=== PATIENT | female | born 1990 | race Caucasian/White ===

== ENCOUNTER → 2016-08-23 | Outpatient (CLI) | payer BC, OTHER ==
[~2016-08-23] MED LIST: ZOLO100T OR
--- NOTE | 2016-08-26 08:27 | REP ---
MRI LUMBAR SPINE WITHOUT CONTRAST: HISTORY: Back pain. COMPARISON: 12/03/2013. Decreased signal intensity on T2-weighted images is present in the L4-5 and L5-S1 intervertebral discs. The discs are decreased in height. These findings are consistent with disc degeneration. There is no disc bulge or herniation at the L1-2 and L2-3 levels. The nerves exit the neural foramina without compression. A diffuse disc bulge is present at the L3-4 level. There is minimal compression of the thecal sac. The L3 nerves exit the neural foramina without compression. A diffuse disc bulge and small central disc protrusion are present at the L4-5 level. There is minimal compression of the thecal sac. The L4 nerves exit the neural foramina without compression. A diffuse disc bulge is present at the L5-S1 level. The disc bulge is decreased in size. There is minimal compression at the thecal sac. The L5 nerves exit the neural foramina without compression. The conus medullaris is normal in appearance terminating at the level of the L1 vertebral body. Normal signal intensity is present in the lumbar vertebral bodies. IMPRESSION: 1. Diffuse disc bulge at the L3-4 level with minimal thecal sac compression. 2. Diffuse disc bulge and small central disc protrusion at the L4-5 level with minimal thecal sac compression. 3. Diffuse disc bulge at the L5-S1 level with minimal thecal sac compression. The disc bulge is decreased in size. Signed by Melo Adrian MD 08/26/2016 08:30 A
== END ==
LOC: M RAD 12:52
PROVIDERS: ATTEND Physician Assistant
DX: M51.36 Other intervertebral disc degeneration, lumbar region (principal); M51.26 Other intervertebral disc displacement, lumbar region

== ENCOUNTER 2017-01-30 12:11 | Emergency (ER) | payer BC, OTHER ==
[~2017-01-30] VITALS: Ht 162.6 cm; Wt 70.8 kg
[2017-01-30] MEDS ORDERED: METHOCARBAMOL 500 MG TAB PO ONE (13:30)
[2017-01-30] MEDS ORDERED: PERCOCET 5MG/325MG TAB PO ONE (13:30)
[2017-01-30] MEDS ORDERED: IBUP-1022 PO (13:53)
[2017-01-30] MEDS ORDERED: ROBA500T PO (13:53)
--- NOTE | 2017-01-30 13:54 | REP ---
Pain after trauma. COMPARISON: 08/10/2016, which was normal. CT BRAIN WITHOUT CONTRAST: TECHNIQUE: 4.5 mm contiguous transaxial sections were obtained from the skull base to the cerebral convexities with thin cuts through the posterior fossa without the administration of intravenous contrast. FINDINGS: The ventricles and sulci are consistent with the patient's age. There are no extra-axial fluid collections. There is no mass effect. The deep cerebral white matter is consistent with the patient's age. The orbital and petrous structures , cerebellopontine angles, and posterior fossa are unremarkable. The sella turcica, cavernous, and paracavernous structures are essentially unremarkable. The visualized portions of the paranasal sinuses and mastoid air cells are clear. Images of the skull base show no gross abnormality. IMPRESSION: Essentially unremarkable CT examination of the brain. There has been no significant from the prior exam. Signed by Mian Barnes DO 01/30/2017 02:18 P
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
[2017-01-30 13:59] VITALS: BP 116/69
== END 2017-01-30 14:00 | disposition home or self-care (01) ==
LOC: M ED 13:48
DX: S13.4XXA Sprain of ligaments of cervical spine, initial encounter (principal); S06.0X0A Concussion without loss of consciousness, initial encounter; W01.0XXA Fall on same level from slipping, tripping and stumbling without subsequent striking against object, initial encounter; Y92.830 Public park as the place of occurrence of the external cause; Y93.64 Activity, baseball; Y99.8 Other external cause status; F17.210 Nicotine dependence, cigarettes, uncomplicated; Z88.0 Allergy status to penicillin

== ENCOUNTER 2017-06-30 14:09 | Emergency (ER) | payer OTHER, BC ==
[~2017-06-30] VITALS: Ht 162.6 cm; Wt 72.7 kg
[~2017-06-30 14:09] MED LIST changes: +IBUP-1022 PO; +ROBA500T PO
[2017-06-30] MEDS ORDERED: DOXY100T (14:14)
[2017-06-30] MEDS ORDERED: NAPR500T PO (17:10)
[2017-06-30] MEDS ORDERED: ROBA500T PO (17:10)
[2017-06-30] MEDS ORDERED: METHOCARBAMOL 500 MG TAB PO ONE (17:15)
[2017-06-30] MEDS ORDERED: NAPROXEN 250 MG TAB PO ONE (17:15)
[2017-06-30 17:24] VITALS: BP 118/67
== END 2017-06-30 17:38 | disposition home or self-care (01) ==
LOC: M ED 14:09
DX: M54.41 Lumbago with sciatica, right side (principal); Z72.0 Tobacco use

== ENCOUNTER 2017-07-02 22:46 | Emergency (ER) | payer OTHER, BC ==
[~2017-07-02] VITALS: Ht 162.6 cm; Wt 72.7 kg
[2017-07-02 22:46] VITALS: BP 133/80
[~2017-07-02 22:46] MED LIST changes: +DOXY100T; +NAPR500T PO
== END 2017-07-03 01:16 | disposition left against medical advice (07) ==
LOC: M ED 22:46
DX: Z53.21 Procedure and treatment not carried out due to patient leaving prior to being seen by health care provider (principal)

== ENCOUNTER → 2017-12-06 | Outpatient (REF) | payer BC | LOC: M LAB REF 14:51 | DX: J02.9 Acute pharyngitis, unspecified (principal) ==

== ENCOUNTER 2017-12-18 14:21 | Emergency (ER) | payer BC ==
[2017-12-18] MEDS: NS 1,000 ML IV (15:45)
[2017-12-18] MEDS ORDERED: NS 1,000 ML IV (16:00)
[2017-12-18 16:19] LABS: BASO % 0.5 % (0.0-1.0); EOS # 0.3 10^3/uL (0.0-0.50); EOS % 3.1 % (0.0-3.0); HEMATOCRIT 37.7 % (36.0-47.0); HEMOGLOBIN 12.7 g/dl (12.0-15.5); IMMATURE GRANULOCYTE % 0.2 % (0-3.0); LYMPH # 2.6 10^3/uL (1.5-6.5); LYMPH % 29.7 % (24.0-44.0); MEAN CORPUSCULAR HEMOGLOBIN 28.5 pg (27.0-33.0); MEAN CORPUSCULAR HGB CONC 33.7 g/dl (32.0-36.5); MEAN CORPUSCULAR VOLUME 84.5 fl (80.0-96.0); MONO # 0.9 10^3/uL (0.0-0.8); MONO % 9.9 % (0.0-5.0); NEUTROPHILS # 4.9 10^3/uL (1.8-7.7); NEUTROPHILS % 56.6 % (36.0-66.0); PLATELET COUNT, AUTOMATED 314 10^3/uL (150-450); RED BLOOD COUNT 4.46 10^6/uL (4.00-5.40); RED CELL DISTRIBUTION WIDTH 14.9 % (11.5-14.5); WHITE BLOOD COUNT 8.7 10^3/uL (4.0-10.0)
[2017-12-18 16:35] LABS: LACTIC ACID SEPSIS PROTOCOL 0.6 MMOL/L (0.4-2.0)
[2017-12-18 16:37] LABS: ALBUMIN 3.7 GM/DL (3.2-5.2); ALKALINE PHOSPHATASE 55 U/L (45-117); ALT/SGPT 22 U/L (12-78); ANION GAP 4 MEQ/L (8-16); AST/SGOT 16 U/L (7-37); BILIRUBIN,DIRECT 0.1 MG/DL (0.0-0.2); BILIRUBIN,TOTAL 0.5 MG/DL (0.2-1.0); BLOOD UREA NITROGEN 14 MG/DL (7-18); C REACTIVE PROTEIN QUANTITATIV < 0.30 MG/DL (0.00-0.30); CALCIUM LEVEL 8.7 MG/DL (8.5-10.1); CARBON DIOXIDE LEVEL 27 MEQ/L (21-32); CHLORIDE LEVEL 110 MEQ/L (98-107); CPK CREATINE PHOSPHOKINASE 272 U/L (26-192); CREATININE FOR GFR 0.84 MG/DL (0.55-1.30); GLOMERULAR FILTRATION RATE > 60.0 (>60); GLUCOSE, FASTING 87 MG/DL (70-100); LIPASE 180 U/L (73-393); MAGNESIUM LEVEL 2.5 MG/DL (1.8-2.4); PHOSPHORUS LEVEL 3.5 MG/DL (2.5-4.9); POTASSIUM SERUM 3.7 MEQ/L (3.5-5.1); SODIUM LEVEL 141 MEQ/L (136-145); TOTAL PROTEIN 7.8 GM/DL (6.4-8.2); TROPONIN I < 0.02 NG/ML (< 0.10)
[2017-12-18 16:40] LABS: ERYTHROCYTE SEDIMENTATION RATE 15 mm/hr (0-20)
[2017-12-18 16:41] LABS: D-DIMER QUANT 360.2 ng/ml (<500)
[2017-12-18 16:43] LABS: CK-MB VALUE MASS 1.3 NG/ML (<3.6); MB/CK RELATIVE INDEX 0.47 (< OR =4)
[2017-12-18] MEDS: KETOROLAC 30 MG/ML VIAL (J1885) IV (17:38)
[2017-12-18 18:49] LABS: PTH INTACT 56.1 PG/ML (18.5-88.0)
== END 2017-12-18 18:15 | disposition home or self-care (01) ==
LOC: M ED 14:21
DX: M79.1 Myalgia (principal); M25.50 Pain in unspecified joint; I49.9 Cardiac arrhythmia, unspecified; E83.39 Other disorders of phosphorus metabolism; Z88.0 Allergy status to penicillin
CPT/HCPCS: J1885

== ENCOUNTER 2018-01-25 21:23 | Observation (INO) | payer BC ==
[2018-01-25 22:18] LABS: BASO # 0.1 10^3/uL (0.0-0.2); BASO % 0.5 % (0.0-1.0); EOS # 0.3 10^3/uL (0.0-0.50); EOS % 1.9 % (0.0-3.0); HEMATOCRIT 40.2 % (36.0-47.0); HEMOGLOBIN 13.8 g/dl (12.0-15.5); IMMATURE GRANULOCYTE % 0.2 % (0-3.0); LYMPH # 3.4 10^3/uL (1.5-6.5); LYMPH % 25.8 % (24.0-44.0); MEAN CORPUSCULAR HEMOGLOBIN 28.3 pg (27.0-33.0); MEAN CORPUSCULAR HGB CONC 34.3 g/dl (32.0-36.5); MEAN CORPUSCULAR VOLUME 82.4 fl (80.0-96.0); MONO # 0.6 10^3/uL (0.0-0.8); MONO % 4.4 % (0.0-5.0); NEUTROPHILS # 8.9 10^3/uL (1.8-7.7); NEUTROPHILS % 67.2 % (36.0-66.0); PLATELET COUNT, AUTOMATED 336 10^3/uL (150-450); RED BLOOD COUNT 4.88 10^6/uL (4.00-5.40); RED CELL DISTRIBUTION WIDTH 13.9 % (11.5-14.5); WHITE BLOOD COUNT 13.2 10^3/uL (4.0-10.0)
[2018-01-25 22:22] LABS: INR 0.97
[2018-01-25 22:23] LABS: PARTIAL THROMBOPLASTIN TIME 26.3 SECONDS (26.8-37.9)
[2018-01-25 22:24] LABS: ANION GAP 11 MEQ/L (8-16); BLOOD UREA NITROGEN 9 MG/DL (7-18); CALCIUM LEVEL 9.2 MG/DL (8.5-10.1); CARBON DIOXIDE LEVEL 22 MEQ/L (21-32); CHLORIDE LEVEL 110 MEQ/L (98-107); CREATININE FOR GFR 0.72 MG/DL (0.55-1.30); GLOMERULAR FILTRATION RATE > 60.0 (>60); GLUCOSE, FASTING 92 MG/DL (70-100); POTASSIUM SERUM 4.1 MEQ/L (3.5-5.1); SODIUM LEVEL 143 MEQ/L (136-145)
[2018-01-25] MEDS ORDERED: ISOVUE-370 76% 100ML VIAL (Q9967) As Ordered (22:31)
[2018-01-26] MEDS ORDERED: ACETAMINOPHEN TAB 650MG DOSE (2X325MG) PO
[2018-01-26] MEDS ORDERED: LORazepam 2 MG TAB PO (00:15)
[2018-01-26] MEDS: ASPIRIN 81 MG ENTERIC TAB PO ×2 (00:29→08:33)
[2018-01-26 00:40] LABS: ETHYL ALCOHOL (ETHANOL) 0.182 % (0.000-0.010); FREE THYROXINE INDEX 2.7 % (1.3-4.8); HCG, SERUM QUANTITATIVE < 1.0 MIU/ML; T UPTAKE 35 % (30-39); THYROID STIMULATING HORMONE 0.925 uIU/ML (0.358-3.740); THYROXINE (T4) 7.6 UG/DL (4.5-12.0)
[2018-01-26] MEDS: THIAMINE 100 MG TAB PO ×3 (02:05→20:37)
[2018-01-26] MEDS: FOLIC ACID 1 MG TAB PO (08:33)
[2018-01-26] MEDS: NS 1,000 ML IV ×2 (08:33→11:13)
[2018-01-26] MEDS: MULTIVITAMINS/MINERALS THERAP 1 TAB PO (08:33)
[2018-01-26 09:26] LABS: BASO # 0.1 10^3/uL (0.0-0.2); BASO % 0.6 % (0.0-1.0); EOS # 0.3 10^3/uL (0.0-0.50); EOS % 3.4 % (0.0-3.0); HEMATOCRIT 38.2 % (36.0-47.0); HEMOGLOBIN 12.4 g/dl (12.0-15.5); IMMATURE GRANULOCYTE % 0.2 % (0-3.0); LYMPH # 2.4 10^3/uL (1.5-6.5); LYMPH % 26.8 % (24.0-44.0); MEAN CORPUSCULAR HEMOGLOBIN 27.4 pg (27.0-33.0); MEAN CORPUSCULAR HGB CONC 32.5 g/dl (32.0-36.5); MEAN CORPUSCULAR VOLUME 84.3 fl (80.0-96.0); MONO # 0.7 10^3/uL (0.0-0.8); MONO % 7.5 % (0.0-5.0); NEUTROPHILS # 5.5 10^3/uL (1.8-7.7); NEUTROPHILS % 61.5 % (36.0-66.0); PLATELET COUNT, AUTOMATED 247 10^3/uL (150-450); RED BLOOD COUNT 4.53 10^6/uL (4.00-5.40); RED CELL DISTRIBUTION WIDTH 14.4 % (11.5-14.5); WHITE BLOOD COUNT 8.9 10^3/uL (4.0-10.0)
[2018-01-26 09:46] LABS: ANION GAP 7 MEQ/L (8-16); BLOOD UREA NITROGEN 8 MG/DL (7-18); CALCIUM LEVEL 8.8 MG/DL (8.5-10.1); CARBON DIOXIDE LEVEL 28 MEQ/L (21-32); CHLORIDE LEVEL 106 MEQ/L (98-107); CREATININE FOR GFR 0.72 MG/DL (0.55-1.30); GLOMERULAR FILTRATION RATE > 60.0 (>60); GLUCOSE, FASTING 93 MG/DL (70-100); MAGNESIUM LEVEL 2.3 MG/DL (1.8-2.4); POTASSIUM SERUM 4.2 MEQ/L (3.5-5.1); SODIUM LEVEL 141 MEQ/L (136-145)
[2018-01-26 09:53] LABS: VITAMIN B12 LEVEL 840 PG/ML (247-911)
[2018-01-26 11:13] LABS: ALBUMIN 3.8 GM/DL (3.2-5.2)
[2018-01-26] MEDS ORDERED: PROHANCE 279.3MG/ML 15ML VIAL (A9576) As Ordered (12:29)
[2018-01-26] MEDS ORDERED: tiZANidine 4 MG TAB PO (19:45)
[2018-01-26] MEDS ORDERED: PILL CRUSHER/CUTTER 1 EACH XX (19:45)
[2018-01-27 05:43] LABS: BASO % 0.4 % (0.0-1.0); EOS # 0.3 10^3/uL (0.0-0.50); EOS % 4.3 % (0.0-3.0); HEMATOCRIT 35.7 % (36.0-47.0); HEMOGLOBIN 11.6 g/dl (12.0-15.5); IMMATURE GRANULOCYTE % 0.3 % (0-3.0); LYMPH # 2.1 10^3/uL (1.5-6.5); LYMPH % 26.6 % (24.0-44.0); MEAN CORPUSCULAR HEMOGLOBIN 27.8 pg (27.0-33.0); MEAN CORPUSCULAR HGB CONC 32.5 g/dl (32.0-36.5); MEAN CORPUSCULAR VOLUME 85.4 fl (80.0-96.0); MONO # 0.7 10^3/uL (0.0-0.8); MONO % 9.3 % (0.0-5.0); NEUTROPHILS # 4.6 10^3/uL (1.8-7.7); NEUTROPHILS % 59.1 % (36.0-66.0); PLATELET COUNT, AUTOMATED 205 10^3/uL (150-450); RED BLOOD COUNT 4.18 10^6/uL (4.00-5.40); RED CELL DISTRIBUTION WIDTH 14.2 % (11.5-14.5); WHITE BLOOD COUNT 7.7 10^3/uL (4.0-10.0)
[2018-01-27 05:56] LABS: ANION GAP 7 MEQ/L (8-16); BLOOD UREA NITROGEN 12 MG/DL (7-18); CALCIUM LEVEL 8.5 MG/DL (8.5-10.1); CARBON DIOXIDE LEVEL 26 MEQ/L (21-32); CHLORIDE LEVEL 106 MEQ/L (98-107); GLOMERULAR FILTRATION RATE > 60.0 (>60); GLUCOSE, FASTING 93 MG/DL (70-100); MAGNESIUM LEVEL 1.9 MG/DL (1.8-2.4); POTASSIUM SERUM 4.3 MEQ/L (3.5-5.1); SODIUM LEVEL 139 MEQ/L (136-145)
[2018-01-27 06:45] LABS: APPEARANCE, URINE CLEAR (CLEAR); BACTERIA, URINE AUTO NEGATIVE (NEGATIVE); BILIRUBIN, URINE AUTO NEGATIVE (NEGATIVE); BLOOD, URINE BLOOD NEGATIVE (NEGATIVE); COLOR, URINE YELLOW (YELLOW); GLUCOSE, URINE (UA) AUTO NEGATIVE (NEGATIVE); KETONE, URINE AUTO NEGATIVE (NEGATIVE); LEUKOCYTE ESTERASE, URINE AUTO NEGATIVE (NEGATIVE); NITRITE, URINE AUTO NEGATIVE (NEGATIVE); PROTEIN, URINE AUTO NEGATIVE (NEGATIVE); RBC, URINE AUTO 1 /HPF (0-3); SPECIFIC GRAVITY URINE AUTO 1.017 (1.002-1.035); SQUAMOUS EPITHELIAL CELL UR AU 0 /HPF (0-6); UROBILINOGEN, URINE AUTO 0.2 mg/dL (0.0-2.0); WBC, URINE AUTO 0 /HPF (0-3)
[2018-01-27 07:08] LABS: AMPHETAMINES LEVEL URINE NEGATIVE (NEGATIVE); BARBITURATES URINE NEGATIVE (NEGATIVE); BENZODIAZEPINES URINE NEGATIVE (NEGATIVE); CANNABINOIDS URINE NEGATIVE (NEGATIVE); COCAINE METABOLITE URINE NEGATIVE (NEGATIVE); METHADONE URINE NEGATIVE (NEGATIVE); OPIATES URINE NEGATIVE (NEGATIVE); PHENCYCLIDINE URINE NEGATIVE (NEGATIVE)
[2018-01-27] MEDS: THIAMINE 100 MG TAB PO (09:13)
[2018-01-27] MEDS: MULTIVITAMINS/MINERALS THERAP 1 TAB PO (09:13)
[2018-01-27] MEDS: FOLIC ACID 1 MG TAB PO (09:13)
[2018-01-27] MEDS: ASPIRIN 81 MG ENTERIC TAB PO (09:13)
== END 2018-01-27 12:35 | disposition home or self-care (01) ==
LOC: M ED 21:23 → M ED INP 21:24 → M PCU 01-26 11:01
DX: G43.809 Other migraine, not intractable, without status migrainosus (principal); M54.81 Occipital neuralgia; R20.9 Unspecified disturbances of skin sensation; R53.1 Weakness; M54.42 Lumbago with sciatica, left side; E83.39 Other disorders of phosphorus metabolism; F10.10 Alcohol abuse, uncomplicated; Z88.0 Allergy status to penicillin; F17.210 Nicotine dependence, cigarettes, uncomplicated
CPT/HCPCS: A9576

== ENCOUNTER → 2018-02-12 | Outpatient (REF) | payer BC ==
[2018-02-12 13:06] LABS: BASO % 0.2 % (0.0-1.0); EOS # 0.1 10^3/uL (0.0-0.50); EOS % 0.9 % (0.0-3.0); HEMATOCRIT 37.8 % (36.0-47.0); HEMOGLOBIN 12.7 g/dl (12.0-15.5); IMMATURE GRANULOCYTE % 0.1 % (0-3.0); LYMPH # 2.4 10^3/uL (1.5-6.5); LYMPH % 28.4 % (24.0-44.0); MEAN CORPUSCULAR HGB CONC 33.6 g/dl (32.0-36.5); MEAN CORPUSCULAR VOLUME 83.4 fl (80.0-96.0); MONO # 0.5 10^3/uL (0.0-0.8); MONO % 5.5 % (0.0-5.0); NEUTROPHILS # 5.5 10^3/uL (1.8-7.7); NEUTROPHILS % 64.9 % (36.0-66.0); PLATELET COUNT, AUTOMATED 261 10^3/uL (150-450); RED BLOOD COUNT 4.53 10^6/uL (4.00-5.40); RED CELL DISTRIBUTION WIDTH 13.8 % (11.5-14.5); WHITE BLOOD COUNT 8.6 10^3/uL (4.0-10.0)
[2018-02-12 13:12] LABS: ALBUMIN 3.8 GM/DL (3.2-5.2); ALKALINE PHOSPHATASE 53 U/L (45-117); ALT/SGPT 27 U/L (12-78); ANION GAP 8 MEQ/L (8-16); AST/SGOT 18 U/L (7-37); BILIRUBIN,TOTAL 0.6 MG/DL (0.2-1.0); BLOOD UREA NITROGEN 9 MG/DL (7-18); C REACTIVE PROTEIN QUANTITATIV 1.28 MG/DL (0.00-0.30); CALCIUM LEVEL 8.8 MG/DL (8.5-10.1); CARBON DIOXIDE LEVEL 25 MEQ/L (21-32); CHLORIDE LEVEL 109 MEQ/L (98-107); CREATININE FOR GFR 0.77 MG/DL (0.55-1.30); GLOMERULAR FILTRATION RATE > 60.0 (>60); GLUCOSE, FASTING 102 MG/DL (70-100); POTASSIUM SERUM 3.8 MEQ/L (3.5-5.1); SODIUM LEVEL 142 MEQ/L (136-145); TOTAL PROTEIN 7.6 GM/DL (6.4-8.2)
[2018-02-12 13:47] LABS: ERYTHROCYTE SEDIMENTATION RATE 34 mm/hr (0-20)
[2018-02-13 14:18] LABS: Lyme Disease IgG/IgM Antibodie <0.91 ISR (0.00-0.90); Lyme Disease IgM Ab Quantitati <0.80 index (0.00-0.79)
== END ==
LOC: M LAB REF 12:21
DX: R21 Rash and other nonspecific skin eruption (principal)
CPT/HCPCS: 80053

== ENCOUNTER → 2018-02-19 | Outpatient (REF) | payer BC ==
[2018-02-19 18:03] LABS: C REACTIVE PROTEIN QUANTITATIV < 0.30 MG/DL (0.00-0.30)
[2018-02-23 16:25] LABS: ANTI DOUBLE STRAND-DNA AB <1 IU/mL (0-9); ANTINUCLEAR ANTIBODIES DIRECT Positive (Negative); RNP ANTIBODIES 0.3 AI (0.0-0.9); SJOGREN'S ANTI SS-A <0.2 AI (0.0-0.9); SJOGREN'S ANTI SS-B <0.2 AI (0.0-0.9); SMITH ANTIBODIES <0.2 AI (0.0-0.9)
== END ==
LOC: M LAB REF 17:32
DX: R21 Rash and other nonspecific skin eruption (principal)

== ENCOUNTER → 2018-04-16 | Outpatient (CLI) | payer BC ==
[2018-04-16 13:43] LABS: TOTAL T3 91.6 NG/DL (60.0-181.0)
[2018-04-16 15:38] LABS: THYROXINE (T4) 8.3 UG/DL (4.5-12.0)
[2018-04-16 15:38] LABS: RHEUMATOID FACTOR QUANT < 10.0 IU/ML (<15.0)
[2018-04-17 11:10] LABS: THYROGLOBULIN ANTIBODY 368.3 U/ML (<60.0); THYROID PEROXIDASE ANTIBODY > 1300.0 U/ML (<60.0)
[2018-04-21 00:07] LABS: IGE RECEPTOR ABY 1 <1.8 (<10)
== END ==
LOC: M SMT 10:11
DX: L50.1 Idiopathic urticaria (principal)
CPT/HCPCS: 84443

== ENCOUNTER 2018-09-26 20:41 | Emergency (ER) | payer OTHER, BC ==
[~2018-09-26] VITALS: Ht 162.6 cm; Wt 74.1 kg
[2018-09-26 20:41] VITALS: BP 127/77
[~2018-09-26 20:41] MED LIST changes: +KETO10TAB PO; +NAPR-50 PO; -NAPR500T PO; +ZANA4TAB PO
[2018-09-26] MEDS ORDERED: CLEO300C2 PO (22:40)
[2018-09-26 22:42] LABS: BASO # 0.1 10^3/uL (0.0-0.2); BASO % 0.5 % (0.0-1.0); EOS # 0.2 10^3/uL (0.0-0.50); EOS % 1.5 % (0.0-3.0); HEMATOCRIT 38.9 % (36.0-47.0); HEMOGLOBIN 12.3 g/dl (12.0-15.5); LYMPH # 2.7 10^3/uL (1.5-6.5); LYMPH % 26.6 % (24.0-44.0); MEAN CORPUSCULAR HEMOGLOBIN 25.9 pg (27.0-33.0); MEAN CORPUSCULAR HGB CONC 31.6 g/dl (32.0-36.5); MEAN CORPUSCULAR VOLUME 81.9 fl (80.0-96.0); MONO # 0.7 10^3/uL (0.0-0.8); MONO % 6.7 % (0.0-5.0); NEUTROPHILS # 6.5 10^3/uL (1.8-7.7); NEUTROPHILS % 64.5 % (36.0-66.0); PLATELET COUNT, AUTOMATED 290 10^3/uL (150-450); RED BLOOD COUNT 4.75 10^6/uL (4.00-5.40); WHITE BLOOD COUNT 10.1 10^3/uL (4.0-10.0)
[2018-09-26 23:03] LABS: HCG, SERUM QUALITATIVE NEGATIVE (NEGATIVE)
[2018-09-26 23:05] LABS: ALBUMIN 4.1 GM/DL (3.2-5.2); ALT/SGPT 25 U/L (12-78); BILIRUBIN,TOTAL 0.3 MG/DL (0.2-1.0); BLOOD UREA NITROGEN 11 MG/DL (7-18); CALCIUM LEVEL 9.2 MG/DL (8.5-10.1); CARBON DIOXIDE LEVEL 27 MEQ/L (21-32); CHLORIDE LEVEL 106 MEQ/L (98-107); CREATININE FOR GFR 0.73 MG/DL (0.55-1.30); GLOMERULAR FILTRATION RATE > 60.0 (>60); GLUCOSE, FASTING 92 MG/DL (70-100); POTASSIUM SERUM 4.4 MEQ/L (3.5-5.1); SODIUM LEVEL 139 MEQ/L (136-145); TOTAL PROTEIN 7.8 GM/DL (6.4-8.2)
[2018-09-28 08:47] LABS: HEPATITIS B SURFACE ANTIBODY NEGATIVE (POSITIVE)
[2018-09-28 08:58] LABS: HEPATITIS B SURFACE ANTIGEN NEGATIVE (NEGATIVE)
[2018-09-28 09:27] LABS: HEPATITIS C VIRUS ABY INDEX < 0.0 INDEX (<0.8)
== END 2018-09-26 22:52 | disposition home or self-care (01) ==
LOC: M ED 20:41
DX: S40.872A Other superficial bite of left upper arm, initial encounter (principal); S40.022A Contusion of left upper arm, initial encounter; Y04.1XXA Assault by human bite, initial encounter; Y92.118 Other place in children's home and orphanage as the place of occurrence of the external cause; Y99.0 Civilian activity done for income or pay; M54.5 Low back pain; F33.9 Major depressive disorder, recurrent, unspecified; F41.9 Anxiety disorder, unspecified; Z88.0 Allergy status to penicillin

== ENCOUNTER 2018-10-03 13:14 | Emergency (ER) | payer OTHER, BC ==
[~2018-10-03] VITALS: Ht 162.6 cm; Wt 74.1 kg
[~2018-10-03 13:14] MED LIST changes: +CLEO300C2 PO
--- NOTE | 2018-10-03 14:37 | REP ---
CT of the brain without IV contrast: Comparison is 01/25/2018. There is no hemorrhage. There is no subdural or epidural hematoma. There is no edema, mass effect or midline shift. The ventricles are normal size and midline. The cortical stripe is unremarkable. The visualized paranasal sinuses and mastoid air cells are clear. Impression: Negative CT study of the brain. There is no hemorrhage, acute infarct or mass. There is no interval change. Electronically Signed by Doni Cruz MD 10/03/2018 02:27 P
--- NOTE | 2018-10-03 14:38 | REP ---
CT of the cervical spine without IV contrast: Comparison is 01/30/2017. The skull base, C1 and C2 are unremarkable. Vertebral body heights, interspacing alignment are unremarkable. The facets are normally aligned. The prevertebral soft tissues are unremarkable. There are no posterior element fractures. Impression: There is no fracture or listhesis. There is no interval change. Electronically Signed by Doni Cruz MD 10/03/2018 02:30 P
[2018-10-03] MEDS ORDERED: CYCL10TA PO (14:55)
--- NOTE | 2018-10-03 15:08 | REP ---
Bilateral ribs three views: Comparison is 04/07/2014. There are no rib fractures or other rib abnormalities. There is no interval change. PA chest: There is no pneumothorax, hemothorax or pulmonary contusion. The lung orona are clear. The cardiac size is normal. The luis carlos, mediastinum, and skeletal structures are unremarkable. Impression: Negative PA chest. There is no change from the comparison comparison study of 2013. Electronically Signed by Doni Cruz MD 10/03/2018 03:00 P
[2018-10-03 15:16] VITALS: BP 114/68
== END 2018-10-03 15:21 | disposition home or self-care (01) ==
LOC: M ED 13:14
DX: S09.90XA Unspecified injury of head, initial encounter (principal); M54.2 Cervicalgia; Y04.8XXA Assault by other bodily force, initial encounter; Y92.119 Unspecified place in children's home and orphanage as the place of occurrence of the external cause; Y93.89 Activity, other specified; Y99.0 Civilian activity done for income or pay; M54.9 Dorsalgia, unspecified; F41.9 Anxiety disorder, unspecified; F32.9 Major depressive disorder, single episode, unspecified; Z72.0 Tobacco use; Z88.0 Allergy status to penicillin

== ENCOUNTER 2018-11-04 08:55 | Emergency (ER) | payer BC, OTHER ==
[~2018-11-04] VITALS: Ht 162.6 cm; Wt 74.1 kg
[~2018-11-04 08:55] MED LIST changes: +CYCL10TA PO; -NAPR-50 PO; +NAPR-837 PO
[2018-11-04] MEDS ORDERED: ONDANSETRON 4MG/2ML VIAL (J2405) IV ONE (09:30)
[2018-11-04] MEDS ORDERED: NS 1,000 ML IV ONE (09:30)
[2018-11-04] MEDS ORDERED: DICYCLOMINE INJ 20MG/2ML (J0500) IM ONE (09:30)
[2018-11-04 09:31] LABS: BASO # 0.1 10^3/uL (0.0-0.2); BASO % 0.2 % (0.0-1.0); EOS # 0.1 10^3/uL (0.0-0.50); EOS % 0.6 % (0.0-3.0); HEMATOCRIT 39.1 % (36.0-47.0); HEMOGLOBIN 12.6 g/dl (12.0-15.5); LYMPH # 1.4 10^3/uL (1.5-6.5); LYMPH % 6.2 % (24.0-44.0); MEAN CORPUSCULAR HEMOGLOBIN 25.8 pg (27.0-33.0); MEAN CORPUSCULAR HGB CONC 32.2 g/dl (32.0-36.5); MONO # 1.6 10^3/uL (0.0-0.8); MONO % 7.2 % (0.0-5.0); NEUTROPHILS # 18.8 10^3/uL (1.8-7.7); NEUTROPHILS % 85.3 % (36.0-66.0); PLATELET COUNT, AUTOMATED 299 10^3/uL (150-450); RED BLOOD COUNT 4.89 10^6/uL (4.00-5.40)
[2018-11-04 10:04] LABS: ALBUMIN 3.8 GM/DL (3.2-5.2); ALT/SGPT 22 U/L (12-78); BILIRUBIN,DIRECT 0.1 MG/DL (0.0-0.2); BILIRUBIN,TOTAL 0.5 MG/DL (0.2-1.0); BLOOD UREA NITROGEN 12 MG/DL (7-18); CALCIUM LEVEL 9.2 MG/DL (8.5-10.1); CARBON DIOXIDE LEVEL 23 MEQ/L (21-32); CHLORIDE LEVEL 107 MEQ/L (98-107); CREATININE FOR GFR 0.75 MG/DL (0.55-1.30); GLOMERULAR FILTRATION RATE > 60.0 (>60); GLUCOSE, FASTING 112 MG/DL (70-100); LIPASE 235 U/L (73-393); POTASSIUM SERUM 3.8 MEQ/L (3.5-5.1); SODIUM LEVEL 140 MEQ/L (136-145); TOTAL PROTEIN 7.4 GM/DL (6.4-8.2)
[2018-11-04] MEDS ORDERED: MORPHINE 4 MG/ML 1ML VIAL/SYRINGE (J2270) IV ONE (10:45)
[2018-11-04] MEDS ORDERED: ISOVUE-370 76% 125ML VIAL (Q9967 PER ML) As Ordered ONE (11:11)
[2018-11-04] MEDS ORDERED: KETOROLAC 30 MG/ML VIAL (J1885) IV ONE (12:30)
[2018-11-04] MEDS ORDERED: METOCLOPRAMIDE INJ 10MG/2ML VIAL (J2765) IV ONE (12:30)
[2018-11-04] MEDS ORDERED: ACETAMINOPHEN 325 MG TAB PO ONE (12:30)
--- NOTE | 2018-11-04 12:31 | REP ---
CT ABDOMEN AND PELVIS WITH IV CONTRAST: TECHNIQUE: Axial contrast enhanced images from the lung bases to the pubic symphysis using 100 mL Isovue 370 intravenous contrast material with multiplanar reformations. Visualized lung bases are clear. Liver, spleen, adrenals, pancreas, and kidneys are unremarkable. There is no hydronephrosis bilaterally. There is no abdominal aortic aneurysm. I seen no adenopathy in the abdomen or pelvis. There is no free air. Multiple small bowel loops are dilated in the mid to lower abdomen, filled with fluid, with possible scattered mucosal thickening of the small bowel. Findings raise the possibility of enteritis. There is no evidence of appendicitis. Mild free fluid is seen in the pelvis. There is a cystic structure of the left ovary 2 cm in diameter probably representing a dominant follicle. The urinary bladder is mildly distended and grossly unremarkable. IMPRESSION: Multiple fluid-filled small bowel loops are mildly dilated with possible scattered mucosal thickening of some of these small bowel loops. Findings raise the possibility of enteritis and mild ileus. No evidence of appendicitis. Mild free fluid in the pelvis. There is a 2 cm dominant follicle in the left ovary. Electronically Signed by Doni Laughlin MD 11/04/2018 04:52 P
[2018-11-04] MEDS ORDERED: CIPR-249 PO (14:20)
[2018-11-04] MEDS ORDERED: HYDR-3715 PO (14:20)
[2018-11-04] MEDS ORDERED: FLAG500T PO (14:20)
[2018-11-04] MEDS ORDERED: ONDA4TAB6 PO (14:20)
[2018-11-04 14:23] VITALS: BP 112/53
== END 2018-11-04 14:43 | disposition home or self-care (01) ==
LOC: M ED 08:55 → EDBD 08:55 → M ED 14:43
DX: K52.9 Noninfective gastroenteritis and colitis, unspecified (principal); F33.9 Major depressive disorder, recurrent, unspecified; F41.9 Anxiety disorder, unspecified; Z88.0 Allergy status to penicillin; F17.210 Nicotine dependence, cigarettes, uncomplicated
CPT/HCPCS: 74177; 80048; 80076; 81001; 83690; 85025; 87507; 96361; 96374; 96375; 99284; J0500; J1885; J2270; J2405; J2765; Q9967

== ENCOUNTER → 2018-11-10 | Outpatient (REF) | payer BC ==
[~2018-11-10] MED LIST changes: +CIPR-249 PO; +FLAG500T PO; +HYDR-3715 PO; +NAPR-50 PO; -NAPR-837 PO; +ONDA4TAB6 PO
[2018-11-10 12:51] LABS: C REACTIVE PROTEIN QUANTITATIV 0.38 MG/DL (0.00-0.30)
[2018-11-11 10:54] LABS: FERRITIN 10 NG/ML (8-252); IMMUNOGLOBULIN A < 7.8 MG/DL (70-400); IRON (FE) 29 UG/DL (50-170); PERCENT SATURATION 7.3 % (13.2-45.0); TOTAL IRON BINDING CAPACITY 400 UG/DL (250-450); VITAMIN B12 LEVEL 571 PG/ML (247-911)
[2018-11-13 00:06] LABS: ENDOMYSIAL ABY IgA Negative (Negative); TISSUE TRANSGLUTAMINASE IgA <2 U/mL (0-3)
== END ==
LOC: M LAB REF 12:00
PROVIDERS: ATTEND Internal Medicine
DX: R19.7 Diarrhea, unspecified (principal); D50.9 Iron deficiency anemia, unspecified; R10.9 Unspecified abdominal pain

== ENCOUNTER 2019-01-07 17:33 | Emergency (ER) | payer BC ==
[~2019-01-07] VITALS: Ht 162.6 cm; Wt 75.0 kg
[~2019-01-07 17:33] MED LIST changes: -NAPR-50 PO; +NAPR-837 PO
[2019-01-07 17:34] VITALS: BP 108/56
== END 2019-01-07 19:01 | disposition left against medical advice (07) ==
LOC: M ED 17:33
DX: R10.9 Unspecified abdominal pain (principal); Z53.21 Procedure and treatment not carried out due to patient leaving prior to being seen by health care provider

== ENCOUNTER 2019-04-05 18:43 | Emergency (ER) | payer OTHER, BC ==
[~2019-04-05] VITALS: Ht 167.6 cm; Wt 75.9 kg
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
[2019-04-05] MEDS ORDERED: NAPR-837 PO (23:40)
[2019-04-05] MEDS ORDERED: REGL10TA6 PO (23:40)
[2019-04-05] MEDS ORDERED: METOCLOPRAMIDE 10 MG TAB PO ONE (23:45)
[2019-04-05] MEDS ORDERED: NAPROXEN 250 MG TAB PO ONE (23:45)
[2019-04-06] VITALS: BP 112/56
== END 2019-04-06 00:04 | disposition home or self-care (01) ==
LOC: M ED 18:43
DX: S06.0X0A Concussion without loss of consciousness, initial encounter (principal); S00.81XA Abrasion of other part of head, initial encounter; W22.8XXA Striking against or struck by other objects, initial encounter; Y92.89 Other specified places as the place of occurrence of the external cause; Y93.9 Activity, unspecified; Y99.0 Civilian activity done for income or pay

== ENCOUNTER → 2019-04-12 | Outpatient (CLI) | payer BC, OTHER ==
[~2019-04-12] MED LIST changes: +REGL10TA6 PO
[2019-04-12 13:53] LABS: BASO % 0.6 % (0.0-1.0); EOS # 0.1 10^3/uL (0.0-0.5); EOS % 2.6 % (0.0-3.0); HEMATOCRIT 34.7 % (36.0-47.0); LYMPH # 1.8 10^3/uL (1.5-5.0); LYMPH % 33.7 % (24.0-44.0); MEAN CORPUSCULAR HEMOGLOBIN 25.3 pg (27.0-33.0); MEAN CORPUSCULAR HGB CONC 31.7 g/dl (32.0-36.5); MONO # 0.6 10^3/uL (0.0-0.8); MONO % 10.6 % (0.0-5.0); NEUTROPHILS # 2.8 10^3/uL (1.5-8.5); NEUTROPHILS % 52.5 % (36.0-66.0); PLATELET COUNT, AUTOMATED 241 10^3/uL (150-450); RED BLOOD COUNT 4.34 10^6/uL (4.00-5.40); WHITE BLOOD COUNT 5.4 10^3/uL (4.0-10.0)
[2019-04-12 14:27] LABS: ALBUMIN 3.5 GM/DL (3.2-5.2); ALT/SGPT 21 U/L (12-78); BILIRUBIN,TOTAL 0.6 MG/DL (0.2-1.0); BLOOD UREA NITROGEN 9 MG/DL (7-18); C REACTIVE PROTEIN QUANTITATIV < 0.30 MG/DL (0.00-0.30); CALCIUM LEVEL 8.7 MG/DL (8.5-10.1); CARBON DIOXIDE LEVEL 27 MEQ/L (21-32); CHLORIDE LEVEL 109 MEQ/L (98-107); CREATININE FOR GFR 0.74 MG/DL (0.55-1.30); GLOMERULAR FILTRATION RATE > 60.0 (>60); GLUCOSE, FASTING 90 MG/DL (70-100); SODIUM LEVEL 140 MEQ/L (136-145); TOTAL PROTEIN 6.9 GM/DL (6.4-8.2)
== END ==
LOC: M LAB 13:29
PROVIDERS: ATTEND Internal Medicine Gastroenterology
DX: R19.7 Diarrhea, unspecified (principal)

== ENCOUNTER 2019-04-13 10:13 | Day surgery (SDC) | payer BC ==
[~2019-04-13] VITALS: Ht 167.6 cm; Wt 74.4 kg
[~2019-04-13 10:13] MED LIST changes: +NS 1,000 ML IV ONE
[2019-04-13] MEDS ORDERED: PROPOFOL 200 MG/20 ML VIAL As Ordered ONE (12:15)
[2019-04-13] MEDS ORDERED: LIDOCAINE 2% INJ 100 MG/5 ML SDV (FOR ANES.) As Ordered ONE (12:15)
--- NOTE | 2019-04-13 12:33 | ROOR ---
Patient Name: Dara Hammonds Procedure Date: 04/13/2019 12:05 PM Date of : 1990 Age: 28 Room: [facility] Gender: Female Note Status: Finalized Procedure: Total Colonoscopy to Cecum + ileoscopy + Bx Indications: Lower abdominal pain, Clinically significant diarrhea of unexplained origin Providers: Fidel Alfonso MD Referring MD: Marya Cabrera DO Requesting Provider: Medicines: Monitored Anesthesia Care Complications: No immediate complications. Procedure: Pre-Anesthesia Assessment: - The heart rate, respiratory rate, oxygen saturations, blood pressure, adequacy of pulmonary ventilation, and response to care were monitored throughout the procedure. The Colonoscope was introduced through the anus and advanced to the terminal ileum, with identification of the appendiceal orifice and IC valve. The colonoscopy was performed without difficulty. The patient tolerated the procedure well. The quality of the bowel preparation was excellent. Findings: The perianal and digital rectal examinations were normal. No other significant abnormalities were identified in a careful examination of the remainder of the colon. The terminal ileum appeared normal. Biopsies for histology were taken with a cold forceps from the ascending colon, transverse colon, descending colon and rectosigmoid colon for evaluation of microscopic colitis. The exam was otherwise without abnormality. Impression: - The examined portion of the ileum was normal. - The examination was otherwise normal. - Biopsies were taken with a cold forceps from the ascending colon, transverse colon, descending colon and rectosigmoid colon for evaluation of microscopic colitis. - The exam was otherwise normal to the cecum. Recommendation: - Patient has a contact number available for emergencies. The signs and symptoms of potential delayed complications were discussed with the patient. Return to normal activities tomorrow. Written discharge instructions were provided to the patient. - High fiber diet. - Discharge patient to home. - Continue present medications. - Await pathology results. - Telephone GI clinic for pathology results in 1 week. - Repeat colonoscopy at age 52 for screening purposes. - Return to referring physician. - The findings and recommendations were discussed with the patient's family. Fidel Alfonso MD Fidel Alfonso MD 04/13/2019 12:32:56 PM Electronically signed by Fidel Alfonso MD Number of Addenda: 0 Note Initiated On: 04/13/2019 12:05 PM Estimated Blood Loss: Estimated blood loss: none.
[2019-04-13 13:00] VITALS: BP 118/57
== END 2019-04-13 13:07 | disposition home or self-care (01) ==
LOC: M OPP 10:13
PROVIDERS: ATTEND Internal Medicine Gastroenterology
DX: R10.30 Lower abdominal pain, unspecified (principal); R19.7 Diarrhea, unspecified; D64.9 Anemia, unspecified; Z87.891 Personal history of nicotine dependence

== ENCOUNTER 2019-05-21 10:30 | Emergency (ER) | payer OTHER, BC ==
[~2019-05-21] VITALS: Ht 167.6 cm; Wt 78.2 kg
[~2019-05-21 10:30] MED LIST changes: -NS 1,000 ML IV ONE
[2019-05-21 10:32] VITALS: BP 134/70
[2019-05-21] MEDS ORDERED: CIPR500T3 (10:40)
[2019-05-21] MEDS ORDERED: ACETAMINOPHEN 500 MG TAB PO ONE (11:00)
[2019-05-21] MEDS ORDERED: ONDANSETRON 4 MG ORAL DISINTEGRATING TAB (Q0162 PER 1MG) PO ONE (11:00)
[2019-05-21] MEDS ORDERED: ONDA4TAB6 PO (11:25)
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
== END 2019-05-21 11:44 | disposition home or self-care (01) ==
LOC: M ED 10:30
DX: S06.0X0A Concussion without loss of consciousness, initial encounter (principal); W22.8XXA Striking against or struck by other objects, initial encounter; Y92.89 Other specified places as the place of occurrence of the external cause
CPT/HCPCS: 70450; 99283; Q0162

== ENCOUNTER → 2019-07-07 | Outpatient (REF) | payer OTHER, BC ==
[~2019-07-07] MED LIST changes: +CIPR500T3
[2019-07-07 13:30] LABS: PERCENT SATURATION 7.3 % (13.2-45.0)
== END ==
LOC: M LAB REF 11:57
PROVIDERS: ATTEND Internal Medicine
DX: D50.9 Iron deficiency anemia, unspecified (principal)

== ENCOUNTER → 2019-09-27 | Outpatient (REF) | payer BC, OTHER ==
[~2019-09-27] MED LIST changes: +BUSP10TA PO; +CLON0.5T2 PO; +ESCI10TA2 PO
[2019-09-27 17:07] LABS: PERCENT SATURATION 9.7 % (13.2-45.0)
== END ==
LOC: M LAB REF 16:15
PROVIDERS: ATTEND Internal Medicine
DX: D50.9 Iron deficiency anemia, unspecified (principal)

== ENCOUNTER → 2019-10-11 | Outpatient (CLI) | payer BC, OTHER ==
--- NOTE | 2019-10-11 16:30 | REPVR ---
PROCEDURE INFORMATION: Exam: MR Head Without Contrast Exam date and time: 10/11/2019 3:53 PM Age: 29 years old Clinical indication: Pain; Headache not specified TECHNIQUE: Imaging protocol: MR of the head without contrast. COMPARISON: MRI-Brain W/O FOLL BY WITH 01/26/2018 12:18 PM FINDINGS: Brain: There is no acute intracranial hemorrhage, cerebral edema, or midline shift. No restricted diffusion is present to suggest acute infarction. Ventricles: No hydrocephalus. Bones/joints: Unremarkable. Soft tissues: Unremarkable. Sinuses: Normal as visualized. No acute sinusitis. Mastoid air cells: Normal as visualized. No mastoid effusion. Orbits: Unremarkable. IMPRESSION: No acute findings. Electronically signed by: Aroldo Cooper On 10/11/2019 16:29:57 PM
== END ==
LOC: M RAD 15:27
DX: R51 Headache (principal)

== ENCOUNTER → 2020-01-14 | Outpatient (CLI) | payer BC ==
[~2020-01-14] MED LIST changes: +CYCL-707 PO; -CYCL10TA PO
--- NOTE | 2020-01-14 12:14 | REPVR ---
PROCEDURE INFORMATION: Exam: MR Lumbar Spine Without Contrast. Exam date and time: 01/14/2020 10:39 AM Age: 29 years old Clinical indication: Low back pain; Additional info: M54.5 lbp TECHNIQUE: Imaging protocol: Multiplanar magnetic resonance images of the lumbar spine without intravenous contrast. COMPARISON: MRI-Spine, L.S. without con 08/23/2016 2:01 PM FINDINGS: Vertebrae: Unremarkable. Spinal cord: Normal signal. No cord compression. L1-L2: No significant disc disease. No significant spinal canal stenosis. No neural foraminal stenosis. L2-L3: No significant disc disease. No significant spinal canal stenosis. No neural foraminal stenosis. L3-L4: There is a moderate disc bulge with a small superimposed central disc herniation. There is facet arthropathy and ligamentum flavum hypertrophy. There is mild spinal canal stenosis. L4-L5: There is disc desiccation. There is a moderate disc bulge with a small superimposed central disc herniation. Disc bulging extends into both neural foramen causing mild bilateral neural foraminal narrowing. There is facet arthropathy and ligamentum flavum hypertrophy. There is mild spinal canal stenosis. L5-S1: There is disc space narrowing and desiccation. There are moderate degenerative end plate changes at this level. There is a moderate disc bulge with a small superimposed central disc herniation. Disc bulging extends into both neural foramen causing mild bilateral neural foraminal narrowing. There is facet arthropathy and ligamentum flavum hypertrophy. Soft tissues: Unremarkable. IMPRESSION: Multilevel degenerative changes causing variable degrees of spinal canal and neuroforaminal narrowing as described above. Electronically signed by: Felix Acuña On 01/14/2020 12:14:27 PM
== END ==
LOC: M RAD 10:02
PROVIDERS: ATTEND Orthopaedic Surgery
DX: M51.26 Other intervertebral disc displacement, lumbar region (principal); M48.061 Spinal stenosis, lumbar region without neurogenic claudication

== ENCOUNTER → 2020-02-29 | Outpatient (CLI) | payer BC ==
[~2020-02-29] MED LIST changes: +CLONI1TA PO; +HYDR1TAB33 PO; +TRAZ-252 PO
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
== END ==
LOC: M PAIN 10:30
PROVIDERS: ATTEND Family Medicine
DX: M51.17 Intervertebral disc disorders with radiculopathy, lumbosacral region (principal)

== ENCOUNTER → 2020-03-02 | Outpatient (CLI) | payer BC | LOC: M LABSMTC 10:48 | PROVIDERS: ATTEND Anesthesiology | DX: Z20.828 Contact with and (suspected) exposure to other viral communicable diseases (principal); Z11.59 Encounter for screening for other viral diseases ==

== ENCOUNTER → 2020-03-07 | Outpatient (POV) | payer BC ==
[~2020-03-07] MED LIST changes: +ISOVUE-M 300 61% 15ML VIAL As Ordered ONE; +LIDOCAINE 1% SDV 30ML VIAL As Ordered ONE; +MIDAZOLAM INJ 2MG/2ML VIAL (J2250 PER 1MG) As Ordered ONE; +fentaNYL 100 MCG/2 ML INJECTION (J3010) As Ordered ONE; +methylPREDNISolone SUSP 40MG/ML 1ML VIAL (DEPO MEDROL) As Ordered ONE
--- NOTE | 2020-04-28 16:30 | REP ---
PARTIAL LUMBAR SPINE: 3-VIEWS HISTORY: Injection procedure for pain. 9 seconds of fluoroscopy time is reported. FINDINGS: A sequence of 3 last image hold fluoroscopically obtained spot radiographs of the lumbar spine document needle position and contrast injection associated with a lumbar spine injection procedure. CHITO
== END ==
LOC: M PAIN 13:00
PROVIDERS: ATTEND Anesthesiology
DX: M51.16 Intervertebral disc disorders with radiculopathy, lumbar region (principal)
CPT/HCPCS: 62323; 99152; 99153; J1030; J2250; J3010; Q9967

== ENCOUNTER 2020-04-30 01:37 | Emergency (ER) | payer BC, MEDICAID, SELFPAY ==
[~2020-04-30] VITALS: Ht 167.6 cm; Wt 79.5 kg
[~2020-04-30 01:37] MED LIST changes: -CLONI1TA PO; -HYDR1TAB33 PO; -ISOVUE-M 300 61% 15ML VIAL As Ordered ONE; -LIDOCAINE 1% SDV 30ML VIAL As Ordered ONE; -MIDAZOLAM INJ 2MG/2ML VIAL (J2250 PER 1MG) As Ordered ONE; -TRAZ-252 PO; -fentaNYL 100 MCG/2 ML INJECTION (J3010) As Ordered ONE; -methylPREDNISolone SUSP 40MG/ML 1ML VIAL (DEPO MEDROL) As Ordered ONE
[2020-04-30] MEDS ORDERED: NS 1,000 ML IV ONE (02:00)
[2020-04-30 02:02] LABS: BASO % 0.4 % (0.0-1.0); EOS # 0.1 10^3/uL (0.0-0.5); EOS % 1.3 % (0.0-3.0); HEMOGLOBIN 11.3 g/dl (12.0-15.5); LYMPH # 2.6 10^3/uL (1.5-5.0); LYMPH % 28.7 % (24.0-44.0); MEAN CORPUSCULAR HEMOGLOBIN 25.5 pg (27.0-33.0); MEAN CORPUSCULAR HGB CONC 32.3 g/dl (32.0-36.5); MEAN CORPUSCULAR VOLUME 78.8 fl (80.0-96.0); MONO # 0.6 10^3/uL (0.0-0.8); MONO % 6.1 % (0.0-5.0); NEUTROPHILS # 5.7 10^3/uL (1.5-8.5); NEUTROPHILS % 63.2 % (36.0-66.0); PLATELET COUNT, AUTOMATED 346 10^3/uL (150-450); RED BLOOD COUNT 4.44 10^6/uL (4.00-5.40); WHITE BLOOD COUNT 9.1 10^3/uL (4.0-10.0)
[2020-04-30 02:26] LABS: HCG, SERUM QUALITATIVE NEGATIVE (NEGATIVE)
[2020-04-30 02:32] LABS: BLOOD UREA NITROGEN 7 MG/DL (7-18); GLUCOSE, FASTING 80 MG/DL (70-100)
[2020-04-30 02:33] LABS: ACETAMINOPHEN LEVEL < 2.0 UG/ML (10.0-30.0); ALT/SGPT 26 U/L (12-78); BILIRUBIN,DIRECT < 0.1 MG/DL (0.0-0.2); BILIRUBIN,TOTAL 0.2 MG/DL (0.2-1.0); CALCIUM LEVEL 7.1 MG/DL (8.5-10.1); CARBON DIOXIDE LEVEL 20 MEQ/L (21-32); CHLORIDE LEVEL 120 MEQ/L (98-107); CPK CREATINE PHOSPHOKINASE 215 U/L (26-192); ETHYL ALCOHOL (ETHANOL) 0.191 % (0.000-0.010); GLOMERULAR FILTRATION RATE > 60.0 (>60); POTASSIUM SERUM 3.4 MEQ/L (3.5-5.1); SALICYLATE LEVEL < 1.7 MG/DL (5.0-30.0); SODIUM LEVEL 148 MEQ/L (136-145); TOTAL PROTEIN 6.2 GM/DL (6.4-8.2)
[2020-04-30 02:39] LABS: AMPHETAMINES LEVEL URINE NEGATIVE (NEGATIVE); BARBITURATES URINE NEGATIVE (NEGATIVE); BENZODIAZEPINES URINE NEGATIVE (NEGATIVE); CANNABINOIDS URINE NEGATIVE (NEGATIVE); COCAINE METABOLITE URINE NEGATIVE (NEGATIVE); METHADONE URINE NEGATIVE (NEGATIVE); OPIATES URINE NEGATIVE (NEGATIVE); PHENCYCLIDINE URINE NEGATIVE (NEGATIVE)
[2020-04-30 03:22] VITALS: BP 110/62
[2020-04-30] MEDS ORDERED: HYDR1TAB33 PO (11:24)
--- NOTE | 2020-04-30 13:57 | ECGEPIP ---
[facility] - ED Test Date: 2020-04-30 Pat Name: BETTINA ZAPATA Department: Room: - Gender: Female Bar Hostess: : 1990 Requested By: ANGELIA Guillen Order Number: [id number] Reading MD: Linda Darby Measurements Intervals [place] Rate: 89 P: 62 NE: 149 QRS: 57 QRSD: 102 T: 35 QT: 355 QTc: 433 Interpretive Statements SINUS RHYTHM INCOMPLETE RIGHT BUNDLE BRANCH BLOCK similar to prior EKG 01/25/18 Electronically Signed on 04-30-2020 13:56:55 EDT by Linda Darby
== END 2020-04-30 03:34 | disposition home or self-care (01) ==
LOC: M ED 01:37
DX: F10.129 Alcohol abuse with intoxication, unspecified (principal); R94.31 Abnormal electrocardiogram [ECG] [EKG]; F43.10 Post-traumatic stress disorder, unspecified; F31.9 Bipolar disorder, unspecified; F17.200 Nicotine dependence, unspecified, uncomplicated; Z79.899 Other long term (current) drug therapy
CPT/HCPCS: 36415; 80048; 80076; 80307; 82550; 84443; 84703; 85025; 93005; 93041; 94760; 99285; G0480

== ENCOUNTER 2020-04-30 10:39 | Inpatient (IN) | payer BC, MEDICAID ==
[~2020-04-30] VITALS: Ht 167.6 cm; Wt 80.0 kg
[2020-04-30] MEDS ORDERED: LORazepam 2 MG TAB PO PRN ×2 (10:45→14:45)
[2020-04-30] MEDS ORDERED: HYDR1TAB33 PO (11:24)
[2020-04-30 11:28] LABS: HEMATOCRIT 33.5 % (36.0-47.0); HEMOGLOBIN 10.7 g/dl (12.0-15.5); MEAN CORPUSCULAR HEMOGLOBIN 25.5 pg (27.0-33.0); MEAN CORPUSCULAR HGB CONC 31.9 g/dl (32.0-36.5); MEAN CORPUSCULAR VOLUME 79.8 fl (80.0-96.0); PLATELET COUNT, AUTOMATED 312 10^3/uL (150-450); WHITE BLOOD COUNT 8.8 10^3/uL (4.0-10.0)
[2020-04-30] MEDS ORDERED: PROMETHAZINE 25 MG TAB PO ONE (11:45)
[2020-04-30 11:54] LABS: AMPHETAMINES LEVEL URINE NEGATIVE (NEGATIVE); BARBITURATES URINE NEGATIVE (NEGATIVE); BENZODIAZEPINES URINE NEGATIVE (NEGATIVE); CANNABINOIDS URINE NEGATIVE (NEGATIVE); COCAINE METABOLITE URINE NEGATIVE (NEGATIVE); METHADONE URINE NEGATIVE (NEGATIVE); OPIATES URINE NEGATIVE (NEGATIVE); PHENCYCLIDINE URINE NEGATIVE (NEGATIVE)
[2020-04-30 11:55] LABS: HCG, SERUM QUALITATIVE NEGATIVE (NEGATIVE)
[2020-04-30 12:13] LABS: ACETAMINOPHEN LEVEL < 2.0 UG/ML (10.0-30.0); ALBUMIN 3.6 GM/DL (3.2-5.2); ALT/SGPT 27 U/L (12-78); BILIRUBIN,DIRECT 0.2 MG/DL (0.0-0.2); BILIRUBIN,TOTAL 0.4 MG/DL (0.2-1.0); BLOOD UREA NITROGEN 8 MG/DL (7-18); CALCIUM LEVEL 8.7 MG/DL (8.5-10.1); CARBON DIOXIDE LEVEL 25 MEQ/L (21-32); CHLORIDE LEVEL 110 MEQ/L (98-107); CREATININE FOR GFR 0.68 MG/DL (0.55-1.30); ETHYL ALCOHOL (ETHANOL) 0.015 % (0.000-0.010); GLOMERULAR FILTRATION RATE > 60.0 (>60); GLUCOSE, FASTING 73 MG/DL (70-100); POTASSIUM SERUM 4.1 MEQ/L (3.5-5.1); SALICYLATE LEVEL < 1.7 MG/DL (5.0-30.0); SODIUM LEVEL 140 MEQ/L (136-145); TOTAL PROTEIN 7.4 GM/DL (6.4-8.2)
[2020-04-30] MEDS ORDERED: ACETAMINOPHEN TAB 650MG DOSE (2X325MG) PO PRN (14:45)
[2020-04-30] MEDS ORDERED: traZODone 50 MG TAB PO PRN (14:45)
[2020-04-30] MEDS ORDERED: MOM 30ML SUSPENSION UDC PO PRN (14:45)
[2020-04-30] MEDS ORDERED: MAALOX 30 ML SUSP *UDC PO PRN (14:45)
[2020-04-30 16:39] VITALS: BP 134/60
[2020-04-30 16:40] VITALS: BP 134/60
[2020-04-30] MEDS ORDERED: hydrOXYzine 50 MG TAB PO PRN (16:45)
[2020-04-30] MEDS: FOLIC ACID 1 MG TAB PO SCH (17:51)
[2020-04-30] MEDS: MULTIVITAMINS/MINERALS THERAP 1 TAB PO SCH (17:51)
[2020-04-30] MEDS: THIAMINE 100 MG TAB PO SCH (21:51)
[2020-05-01 06:21] VITALS: BP 102/55
[2020-05-01] MEDS: THIAMINE 100 MG TAB PO SCH ×2 (08:35→20:05)
[2020-05-01] MEDS: MULTIVITAMINS/MINERALS THERAP 1 TAB PO SCH (08:35)
[2020-05-01] MEDS: FOLIC ACID 1 MG TAB PO SCH (08:35)
[2020-05-01] MEDS ORDERED: ESCITALOPRAM OXALATE 10 MG TAB (LEXAPRO) PO SCH (09:00)
[2020-05-01 09:30] VITALS: BP 102/55
--- NOTE | 2020-05-01 15:47 | HPEPDOC ---
General Date of Admission Apr 30, 2020 at 14:34 Date of Service: May 01, 2020 Chief Complaint The patient is a 29-year-old female admitted with a reason for visit of Unspecified Depression. Source: Patient Exam Limitations: No limitations Timing/Duration: Day(s) Severity: Moderate History of Present Illness Patient is 29 years old female with past medical history of anxiety, depression, PTSD presented hospital with major depressive syndrome. Patient stated that for past few weeks she's been feeling down, she lost interest in daily activities and appetite. She had lack of energy. She stated that she excessively drank alcohol in order to alleviate her symptoms. During my interview patient denied fever, chills, nausea, vomiting, diarrhea or dysuria Home Medications Scheduled Escitalopram Oxalate (Escitalopram Oxalate) 10 Mg Tablet, 20 MG PO DAILY, (Reported) Scheduled PRN Hydroxyzine HCl (Hydroxyzine HCl) 50 Mg Tablet, Unknown Dose PO PRN PRN for ANXIETY, (Reported) Allergies Coded Allergies: No Known Allergies (Unverified , 04/05/19) Past Medical History Medical History Depression, anxiety, PTSD,History of low back pain with left-sided sciatica, hypophosphatasia. Family History I personally reviewed family history and found not pertinent Social History * Smoker: current smoker Alcohol: heavy Drugs: denies A-FIB/CHADSVASC A-FIB History Current/History of A-Fib/PAF?: No Current PO Anticoag Therapy: No Review of Systems Constitutional: Denies: Chills, Fever Eyes: Denies: Pain ENT: Denies: Head Aches Skin: Denies: Rash Pulmonary: Denies: Dyspnea Cardiovascular: Denies: Chest Pain, Palpitations Gastrointestinal: Denies: Nausea Genitourinary: Denies: Dysuria Hematologic: Denies: Bruising Endocrine: Denies: Polydipsia Musculoskeletal: Denies: Neck Pain, Back Pain Neurological: Denies: Weakness Psych: Reports: Anxiety, Depression Physical Examination General Exam: Positive: Alert, Cooperative Eye Exam: Positive: PERRLA ENT Exam: Positive: Atraumatic Neck Exam: Positive: Supple; Negative: JVD Chest Exam: Positive: Clear to auscultation Heart Exam: Positive: Rate Normal Telemetry: Positive: No significant arrhythmia Abdomen Exam: Positive: Normal bowel sounds Extremity Exam: Negative: Clubbing, Cyanosis Skin Exam: Positive: Nl turgor and temperature Neuro Exam: Positive: Normal Gait, Strength at 5/5 X4 ext, Cranial Nerves 3-12 NL Psych Exam: Positive: Mental status NL Vital Signs Vital Signs Date Time Temp Pulse Resp B/P (MAP) Pulse Ox O2 Delivery O2 Flow Rate FiO2 05/01/20 09:30 81 102/55 05/01/20 06:21 98.4 12 100 Room Air Assessment/Plan Patient is 29 years old female with past medical history of anxiety, depression, PTSD presented hospital with major depressive syndrome. Patient stated that for past few weeks she's been feeling down, she lost interest in daily activities and appetite. She had lack of energy. She stated that she excessively drank alcohol in order to alleviate her symptoms. During my interview patient denied fever, chills, nausea, vomiting, diarrhea or dysuria Problems (1) Depression Status: Acute Problem Text: defer to psych team Plan / VTE VTE Prophylaxis Ordered?: No VTE Exclusion Mechanical Proph: Low Risk for VTE KATHARINE STEVE DO May 01, 2020 15:47
[2020-05-01] MEDS: cloNIDine 0.1 MG TAB PO SCH (16:50)
[2020-05-01 17:14] VITALS: BP 126/65
[2020-05-01 17:44] VITALS: BP 127/83
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
[2020-05-02 06:26] VITALS: BP 102/53
[2020-05-02] MEDS: MULTIVITAMINS/MINERALS THERAP 1 TAB PO SCH (08:23)
[2020-05-02] MEDS: THIAMINE 100 MG TAB PO SCH (08:23)
[2020-05-02] MEDS: FOLIC ACID 1 MG TAB PO SCH (08:23)
[2020-05-02 08:24] VITALS: BP 110/60
[2020-05-02] MEDS: cloNIDine 0.1 MG TAB PO SCH (08:24)
[2020-05-02] MEDS ORDERED: ESCITALOPRAM OXALATE 10 MG TAB (LEXAPRO) PO SCH (09:00)
[2020-05-02] MEDS ORDERED: ESCI10TA2 PO (09:47)
[2020-05-02] MEDS ORDERED: CLONI1TA PO (09:47)
[2020-05-02] MEDS ORDERED: TRAZ-252 PO (09:47)
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
== END 2020-05-02 16:30 | disposition home or self-care (01) | DRG 754 ==
LOC: M ED 10:39 → M ED INP 14:34 → M PSY 15:45
PROVIDERS: ADMIT Psychiatry & Neurology Addiction Medicine; ATTEND Psychiatry & Neurology Psychiatry
DX: F32.9 Major depressive disorder, single episode, unspecified (principal); F41.9 Anxiety disorder, unspecified; F43.10 Post-traumatic stress disorder, unspecified; Z79.899 Other long term (current) drug therapy; Z91.49 Other personal history of psychological trauma, not elsewhere classified

== ENCOUNTER → 2020-07-10 | Outpatient (CLI) | payer OTHER ==
[~2020-07-10] MED LIST changes: +CLONI1TA PO; +HYDR1TAB33 PO; +TRAZ-252 PO
--- NOTE | 2020-07-11 23:38 | ECWPNPC ---
PATIENT NAME: BETTINA ZAPATA : 1990 GENDER: FEMALE VISIT DATE: 07/10/2020 DISCHARGE DATE: 07/10/20 1507 VISIT LOCKED DATE TIME: PHYSICIAN: AYLA CASTILLO RESOURCE: AYLA CASTILLO REASON FOR APPOINTMENT 1. LOW BACK PAIN/POST LESI HISTORY OF PRESENT ILLNESS GENERAL: - 30-YEAR-OLD FEMALE IN FOR POST LESI FOLLOW-UP. SHE RATES HER PAIN PREPROCEDURE AT A 9 OUT OF 10 AND POSTPROCEDURE AT A 0-3 OUT OF 10. SHE FURTHER STATES PROCEDURE CONTINUES TO HELP HER TODAY. SHE RATES HER PAIN CURRENTLY AT A 4 OUT OF 10 AND DESCRIBES IT ACHING. FALL RISK SCREENING: SCREENING :TWO OR MORE FALLS WITHOUT INJURY IN THE PAST YEAR PAIN SCREENING: PATIENT HAS A COMPLAINT OF ACUTE OR CHRONIC PAIN :YES LOCATION OF PAIN:LOW BACK, LEFT HIP, LEG(S) LEFT LEG INTENSITY OF PAIN (SCALE OF 1 TO 10):4 WHAT DOES YOUR PAIN FEEL LIKE:ACHING DURATION:INTERMITTENT PAIN IS INCREASED BY:ACTIVITIES, PROLONGED STANDING, OTHERS PROLONGED SITTING, WALKING PAIN IS DECREASED BY:OTHERS LAYING DOWN. HEAT, IBUPROFEN, MUSCLE RELAXER NURSING NOTE: -. PAIN CENTER INTAKE QUESTIONS: DO YOU HAVE A HISTORY OF MRSA? :NO DO YOU TAKE A BLOOD THINNERS? :NO DO YOU HAVE ANY BLEEDING DISORDERS? :NO ANY NEW NUMBNESS OR WEAKNESS IN YOUR LEGS OR ARMS? :NO ANY PACEMAKER,DEFIBRILLATOR, OR DORSAL COLUMN STIMULATOR? :NO DO YOU HAVE ANY RASHES OR OPEN SORES? :NO ARE YOU ALLERGIC TO IV DYE? :NO ARE YOU DIABETIC? :NO ANY NEW PROBLEMS WITH YOUR MEDICATIONS? :NO HAVE YOU RECEIVED A VACCINE IN THE PAST 30 DAYS? :NO DO YOU PLAN TO RECEIVE A VACCINE IN THE NEXT 21 DAYS? :NO DO YOU NEED ANY PRESCRIPTION? :NO DO YOU TAKE ANY IMMUNOSUPPRESSIVE MEDICATIONS? :NO IS THERE A CHANCE YOU COULD BE ? :NO ARE YOU BREAST FEEDING? :NO CURRENT MEDICATIONS TAKING TIZANIDINE HCL 2 MG TABLET 1 TABLET NEEDED ORALLY DAILY TAKING GABAPENTIN 300 MG CAPSULE 1 CAPSULE ORALLY THREE TIMES DAILY START DAY 6 TAKING LEXAPRO 20 MG TABLET 1.5 TABLETS ORALLY ONCE A DAY TAKING CLONIDINE HCL 0.1 MG TABLET 1 TABLET ORALLY ONCE A DAY TAKING IBU-200 200 MG TABLET 1 TABLET WITH FOOD OR MILK NEEDED ORALLY THREE TIMES A DAY NOT-TAKING FLEXERIL 5 MG TABLET 1 TABLET P.O. ONCE A DAY NEEDED NOT-TAKING GABAPENTIN 100 MG CAPSULE 1 CAPSULE ORALLY THREE TIMES DAILY X 5 DAYS MEDICATION LIST REVIEWED AND RECONCILED WITH THE PATIENT PAST MEDICAL HISTORY ANEMIA PTSD/ POST CONCUSSION SYNDROME CHRONIC PAIN ALLERGIES N.K.D.A. SURGICAL HISTORY WISDOM TEETH REMOVAL 2016 COLONSCOPY 2018 FAMILY HISTORY FATHER: ALIVE, B-12 DEFICIENCY (DOES NOT PRODUCE ANY) MOTHER: ALIVE, RARE BONE DISEASE 1 BROTHER(S) - HEALTHY. NO KNOWN HISTORY OF BREAST, OVARIAN, OR COLORECTAL CANCERBROTHER - RARE BONE DISEASE. SOCIAL HISTORY GENERAL: TOBACCO USE ARE YOU A:CURRENT SMOKER ARE YOU INTERESTED IN QUITTING?NOT READY TO QUIT COUNSELED THE PATIENT ON SMOKING EFFECTS, EDUCATION [id number]/30/2020 HOW MANY CIGARETTES A DAY DO YOU SMOKE?11- HOW SOON AFTER YOU WAKE UP DO YOU SMOKE YOUR FIRST CIGARETTE?WITHIN 5 MIN HOW OFTEN DO YOU SMOKE CIGARETTES?SOME DAYS, BUT NOT EVERY DAY PATIENT COUNSELED ON THE DANGERS OF TOBACCO USE AND URGED TO QUIT:07/10/2020 SMOKING CESSATION INFORMATION GIVEN02/29/2020 LATEX QUESTIONNAIRE LATEX ALLERGY : HAVE YOU EVER DEVELOPED ANY TYPE OF REACTION AFTER HANDLING LATEX PRODUCTS SUCH RUBBER GLOVES, CONDOMS, DIAPHRAGMS, BALLOONS, SOCKS, OR UNDERWEAR?NO LATEX ALLERGY : HAVE YOU EVER DEVELOPED ANY TYPE OF REACTION DURING OR AFTER DENTAL APPOINTMENT, VAGINAL/RECTAL EXAMINATION, SURGICAL PROCEDURE, OR ANY OTHER EXPOSURE?NO LATEX RISK : HAVE YOU EVER HAD ANY DIFFICULTY BREATHING OR HIVES AFTER EATING OR HANDLING ANY FRUITS, OR VEGETABLES; SUCH KIWI, BANANAS, STONE FRUITS, OR CHESTNUTSNO LATEX RISK : DO YOU HAVE A PREVIOUS PERSONAL HISTORY OF MORE THAN NINE SURGERIES, SPINA BIFIDA, OR REPEATED CATHERIZATIONS? NO LATEX RISK : ARE YOU FREQUENTLY EXPOSED TO LATEX PRODUCTS IN YOUR OCCUPATION?NO DATE ASKED : 07/10/2020 ALCOHOL SCREENING DID YOU HAVE A DRINK CONTAINING ALCOHOL IN THE PAST YEAR?YES HOW OFTEN DID YOU HAVE SIX OR MORE DRINKS ON ONE OCCASION IN THE PAST YEAR?LESS THAN MONTHLY (1 POINT) HOW MANY DRINKS DID YOU HAVE ON A TYPICAL DAY WHEN YOU WERE DRINKING IN THE PAST YEAR?1 OR 2 (0 POINTS) HOW OFTEN DID YOU HAVE A DRINK CONTAINING ALCOHOL IN THE PAST YEAR?TWO TO FOUR TIMES A MONTH (2 POINTS) POINTS3 INTERPRETATIONPOSITIVE RECREATIONAL DRUG USE DRUG USE?NO CAFFEINE OCCASIONAL ONLY. LANGUAGE LANGUAGES SPOKEN:MALAWIAN LEARNING BARRIERS / SPECIAL NEEDS CHANGE FROM LAST VISIT?NO BARRIERS TO LEARNING?NO HEARING IMPAIRED?NO VISION IMPAIRED?YES :CORRECTIVE LENSES COGNITIVELY IMPAIRED?NO READINESS TO LEARN?YES LEARNING PREFERENCES?NO LEARNING CAPABILITIES PRESENT?YES EMOTIONAL BARRIERS?NO SPECIAL DEVICES?NO CUSHION PADDER NEEDED?NO NO DOMESTIC VIOLENCE DO YOU FEEL SAFE IN YOUR ENVIRONMENT?YES OCCUPATION: [employer]. DIET: REGULAR. EXERCISE: INSANITY CHALLENGE. MARITAL STATUS: SINGLE. OTHERS AT HOME: SPOUSE, CHILDREN 2. PAIN CLINIC PFS, CLERGY, PUBLIC HEALTH REFERRALS PFS REFERRAL NEEDED?NO CLERGY REFERRAL NEEDED?NO PUBLIC HEALTH REFERRAL NEEDED?NO WAS THE PROVIDER NOTIFIED OF ANY PERTINENT INFO?YES HAS THE PATIENT BEEN EDUCATED REGARDING HIS/HER PLAN OF CARE?YES HAS THE PATIENT BEEN EDUCATED REGARDING PAIN, THE RISK FOR PAIN, THE IMPORTANCE OF EFFECTIVE PAIN MANAGEMENT, AND THE PAIN ASSESSMENT PROCESS?YES ADVANCE DIRECTIVE ADVANCE DIRECTIVE DISCUSSED WITH PATIENT:YES PATIENT HAS NO ADVANCED DIRECTIVES, DECLINES INFORMATION ON HCP. HOSPITALIZATION/MAJOR DIAGNOSTIC PROCEDURE DENIES PAST HOSPITALIZATION REVIEW OF SYSTEMS CONSTITUTIONAL: ANY RECENT FEVER NO . CHILLS NO . WEIGHT CHANGE OF UNKNOWN REASONS NO . GASTROENTEROLOGY: NEW UNEXPLAINABLE CHANGES IN BOWEL CONTROL NO . CONSTIPATION NO . GENITOURINARY: ANY NEW CHANGE IN BLADDER CONTROL? NO . NEUROLOGY: NEW ONSET DIZZINESS OR NEUROLOGICAL CHANGES NOT MENTIONED NO . NEW NUMBNESS OR PAIN PATTERNS NOT MENTIONED AND PERTINENT TO TODAY'S VISIT NO . CARDIOLOGY: NEW CHEST PRESSURE NO . NEW CHEST PAIN NO . RESPIRATORY: UNEXPLAINABLE COUGH NO . NEW SHORTNESS OF BREATH NO . VITAL SIGNS WT 182.2 LBS, HT 65 IN, BMI 30.32 INDEX, BP 115/54 MM HG, HR 87 /MIN, RR 18 /MIN, TEMP 98.2 F, OXYGEN SAT % 95%, SAFE IN ENV? (Y/N) Y, NA INITIALS AW 1443, REVIEWED BY: JSJ. IRVIN RN. EXAMINATION GENERAL EXAMINATION: GENERALNO ACUTE DISTRESS, WELL NOURISHED AND HYDRATED. PSYCHAPPROPRIATE MOOD AND AFFECT . LUNGS:CLEAR TO AUSCULTATION BILATERALLY, NO WHEEZES, RHONCHI, RALES. HEART:NO MURMURS, REGULAR RATE AND RHYTHM. ASSESSMENTS OTHER CHRONIC PAIN - G89.29 (PRIMARY) TREATMENT OTHER CHRONIC PAIN PAIN PROCEDURE LOGDATE OF PROCEDURE03/07/2020PROCEDURE:LUMBAR EPIDURAL STEROID INJECTION L4-5AMOUNT OF PRE SEDATEVERSED 2 MG & FENTANYL 200 MCGRESULT:PRE 04/20 POST 0-10/18 NOTES: 30-YEAR-OLD FEMALE IN FOR POST LESI FOLLOW-UP. GIVEN PRESENTING SYMPTOMS RECOMMEND FOLLOW-UP IN ONE MONTH. PATIENT HAS EXPRESSED UNDERSTANDING OF AND WAS IN AGREEMENT WITH TREATMENT PLAN. GIVEN TIME TO ASK QUESTIONS AND EXPRESS CONCERNS. [facility] [place] [facility]:MEDICAL MARIJUANA PROCEDURE CODES FA211 ESTABILISHED PATIENT [facility] FACILITY CHARGE DISPOSITION & COMMUNICATION FOLLOW UP 4 WEEKS (REASON: BACK PAIN) ELECTRONICALLY SIGNED BY VERONICA JACQUES ON 07/11/2020 AT 09:03 AM EST DISCLAIMER : THIS IS A VISIT SUMMARY EXTRACTED FROM THE [employer] CHART. IT IS NOT A COPY OF THE [employer] PROGRESS NOTE. [facility]O
== END ==
LOC: M PAIN 14:45
PROVIDERS: ATTEND Family Medicine
DX: G89.29 Other chronic pain (principal); D64.9 Anemia, unspecified; F43.10 Post-traumatic stress disorder, unspecified; F07.81 Postconcussional syndrome; F17.210 Nicotine dependence, cigarettes, uncomplicated; Z79.899 Other long term (current) drug therapy

== ENCOUNTER → 2020-08-09 | Outpatient (CLI) | payer OTHER ==
--- NOTE | 2020-08-15 05:10 | ECWPNPC ---
PATIENT NAME: BETTINA ZAPATA : 1990 GENDER: FEMALE VISIT DATE: 08/09/2020 DISCHARGE DATE: 08/09/20 1451 VISIT LOCKED DATE TIME: PHYSICIAN: AYLA CASTILLO RESOURCE: AYLA CASTILLO REASON FOR APPOINTMENT 1. LOW BACK PAIN/POST LESI HISTORY OF PRESENT ILLNESS DEPRESSION SCREENIN-YEAR-OLD FEMALE IN FOR CHRONIC PAIN FOLLOW-UP. SHE RATES HER PAIN CURRENTLY AT A 6 OUT OF 10 AND DESCRIBES IT ACHING, BURNING, CONTINUOUS, SHARP, STABBING, THROBBING, AND SHOOTING. PATIENT HAS HAD LUMBAR EPIDURAL STEROID INJECTIONS IN THE PAST WITH GOOD RELIEF FOR APPROXIMATELY 4 MONTHS. WE WILL DISCUSS REPEAT PROCEDURES TODAY. PHQ-9 LITTLE INTEREST OR PLEASURE IN DOING THINGSSEVERAL DAYS FEELING DOWN, DEPRESSED, OR HOPELESSSEVERAL DAYS TROUBLE FALLING OR STAYING ASLEEP, OR SLEEPING TOO MUCHNEARLY EVERY DAY FEELING TIRED OR HAVING LITTLE ENERGYSEVERAL DAYS POOR APPETITE OR OVEREATING NEARLY EVERY DAY FEELING BAD ABOUT YOURSELF-OR THAT YOU ARE A FAILURE OR HAVE LET YOURSELF OR YOUR FAMILY DOWN SEVERAL DAYS TROUBLE CONCENTRATING ON THINGS, SUCH READING THE NEWSPAPER OR WATCHING TELEVISION NEARLY EVERY DAY MOVING OR SPEAKING SO SLOWLY THAT OTHER PEOPLE COULD HAVE NOTICED. OR THE OPPOSITE- BEING SO FIDGETY OR RESTLESS THAT YOU HAVE BEEN MOVING AROUND A LOT MORE THAN USUALNEARLY EVERY DAY THOUGHTS THAT YOU WOULD BE BETTER OFF , OR OF HURTING YOURSELF IN SOME WAY?NOT AT ALL TOTAL SCORE:16 INTERPRETATIONMODERATELY SEVERE DEPRESSION PHQ-2 (2015 EDITION) LITTLE INTEREST OR PLEASURE IN DOING THINGS?SEVERAL DAYS FEELING DOWN, DEPRESSED, OR HOPELESS?SEVERAL DAYS TOTAL SCORE2 GENERAL: - -. FALL RISK SCREENING: SCREENING :ONE FALL WITH INJURY IN THE PAST YEAR PAIN SCREENING: PATIENT HAS A COMPLAINT OF ACUTE OR CHRONIC PAIN :YES LOCATION OF PAIN:LOW BACK, LEG(S) LEFT LEG PAIN WORSE THAN THE OTHER INTENSITY OF PAIN (SCALE OF 1 TO 10):6 WHAT DOES YOUR PAIN FEEL LIKE:ACHING, BURNING, CONTINOUS, SHARP, STABBING, THROBBING, SHOOTING DURATION:CONTINOUS PAIN IS INCREASED BY:ACTIVITIES, PROLONGED STANDING PAIN IS DECREASED BY:SITTING RESTING, HEAT NURSING NOTE: - -. PAIN CENTER INTAKE QUESTIONS: DO YOU HAVE A HISTORY OF MRSA? :NO DO YOU TAKE A BLOOD THINNERS? :NO DO YOU HAVE ANY BLEEDING DISORDERS? :NO ANY NEW NUMBNESS OR WEAKNESS IN YOUR LEGS OR ARMS? :NO ANY PACEMAKER,DEFIBRILLATOR, OR DORSAL COLUMN STIMULATOR? :NO DO YOU HAVE ANY RASHES OR OPEN SORES? :NO ARE YOU ALLERGIC TO IV DYE? :NO ARE YOU DIABETIC? :NO ANY NEW PROBLEMS WITH YOUR MEDICATIONS? :NO HAVE YOU RECEIVED A VACCINE IN THE PAST 30 DAYS? :NO DO YOU PLAN TO RECEIVE A VACCINE IN THE NEXT 21 DAYS? :NO DO YOU NEED ANY PRESCRIPTION? :NO DO YOU TAKE ANY IMMUNOSUPPRESSIVE MEDICATIONS? :NO IS THERE A CHANCE YOU COULD BE ? :NO ARE YOU BREAST FEEDING? :NO CURRENT MEDICATIONS TAKING TIZANIDINE HCL 2 MG TABLET 1 TABLET NEEDED ORALLY DAILY TAKING GABAPENTIN 300 MG CAPSULE 1 CAPSULE ORALLY THREE TIMES DAILY START DAY 6, NOTES: TAKES NEEDED TAKING LEXAPRO 20 MG TABLET 1 TABLET ORALLY ONCE A DAY TAKING CLONIDINE HCL 0.2 MG TABLET 1 TABLET ORALLY ONCE A DAY TAKING MAY USE MEDICAL [place] NOT-TAKING FLEXERIL 5 MG TABLET 1 TABLET P.O. ONCE A DAY NEEDED NOT-TAKING GABAPENTIN 100 MG CAPSULE 1 CAPSULE ORALLY THREE TIMES DAILY X 5 DAYS NOT-TAKING IBU-200 200 MG TABLET 1 TABLET WITH FOOD OR MILK NEEDED ORALLY THREE TIMES A DAY MEDICATION LIST REVIEWED AND RECONCILED WITH THE PATIENT PAST MEDICAL HISTORY ANEMIA PTSD/ POST CONCUSSION SYNDROME CHRONIC PAIN ALLERGIES N.K.D.A. SURGICAL HISTORY WISDOM TEETH REMOVAL 2016 COLONSCOPY 2018 FAMILY HISTORY FATHER: ALIVE, B-12 DEFICIENCY (DOES NOT PRODUCE ANY) MOTHER: ALIVE, RARE BONE DISEASE 1 BROTHER(S) - HEALTHY. NO KNOWN HISTORY OF BREAST, OVARIAN, OR COLORECTAL CANCERBROTHER - RARE BONE DISEASE. SOCIAL HISTORY GENERAL: TOBACCO USE ARE YOU A:CURRENT SMOKER ARE YOU INTERESTED IN QUITTING?NOT READY TO QUIT COUNSELED THE PATIENT ON SMOKING EFFECTS, EDUCATION ANQLUVUR59/30/2020 HOW MANY CIGARETTES A DAY DO YOU SMOKE?11-20 HOW SOON AFTER YOU WAKE UP DO YOU SMOKE YOUR FIRST CIGARETTE?WITHIN 5 MIN HOW OFTEN DO YOU SMOKE CIGARETTES?SOME DAYS, BUT NOT EVERY DAY PATIENT COUNSELED ON THE DANGERS OF TOBACCO USE AND URGED TO QUIT:08/09/2020 SMOKING CESSATION INFORMATION GIVEN02/29/2020 LATEX QUESTIONNAIRE LATEX ALLERGY : HAVE YOU EVER DEVELOPED ANY TYPE OF REACTION AFTER HANDLING LATEX PRODUCTS SUCH RUBBER GLOVES, CONDOMS, DIAPHRAGMS, BALLOONS, SOCKS, OR UNDERWEAR?NO LATEX ALLERGY : HAVE YOU EVER DEVELOPED ANY TYPE OF REACTION DURING OR AFTER DENTAL APPOINTMENT, VAGINAL/RECTAL EXAMINATION, SURGICAL PROCEDURE, OR ANY OTHER EXPOSURE?NO LATEX RISK : HAVE YOU EVER HAD ANY DIFFICULTY BREATHING OR HIVES AFTER EATING OR HANDLING ANY FRUITS, OR VEGETABLES; SUCH KIWI, BANANAS, STONE FRUITS, OR CHESTNUTSNO LATEX RISK : DO YOU HAVE A PREVIOUS PERSONAL HISTORY OF MORE THAN NINE SURGERIES, SPINA BIFIDA, OR REPEATED CATHERIZATIONS? NO LATEX RISK : ARE YOU FREQUENTLY EXPOSED TO LATEX PRODUCTS IN YOUR OCCUPATION?NO DATE ASKED : 08/09/2020 ALCOHOL SCREENING DID YOU HAVE A DRINK CONTAINING ALCOHOL IN THE PAST YEAR?YES HOW OFTEN DID YOU HAVE A DRINK CONTAINING ALCOHOL IN THE PAST YEAR?TWO TO FOUR TIMES A MONTH (2 POINTS) HOW MANY DRINKS DID YOU HAVE ON A TYPICAL DAY WHEN YOU WERE DRINKING IN THE PAST YEAR?1 OR 2 (0 POINTS) HOW OFTEN DID YOU HAVE SIX OR MORE DRINKS ON ONE OCCASION IN THE PAST YEAR?NEVER (0 POINTS) POINTS2 INTERPRETATIONNEGATIVE RECREATIONAL DRUG USE DRUG USE?NO CAFFEINE OCCASIONAL ONLY. 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 DIET: REGULAR. EXERCISE: INSANITY CHALLENGE. MARITAL STATUS: SINGLE. OTHERS AT HOME: SPOUSE, CHILDREN 2. PAIN CLINIC PFS, CLERGY, PUBLIC HEALTH REFERRALS PFS REFERRAL NEEDED?NO CLERGY REFERRAL NEEDED?NO PUBLIC HEALTH REFERRAL NEEDED?NO WAS THE PROVIDER NOTIFIED OF ANY PERTINENT INFO?YES HAS THE PATIENT BEEN EDUCATED REGARDING HIS/HER PLAN OF CARE?YES HAS THE PATIENT BEEN EDUCATED REGARDING PAIN, THE RISK FOR PAIN, THE IMPORTANCE OF EFFECTIVE PAIN MANAGEMENT, AND THE PAIN ASSESSMENT PROCESS?YES ADVANCE DIRECTIVE ADVANCE DIRECTIVE DISCUSSED WITH PATIENT:YES PATIENT HAS NO ADVANCED DIRECTIVES, DECLINES INFORMATION ON HCP. HOSPITALIZATION/MAJOR DIAGNOSTIC PROCEDURE NO HOSPITALIZATION HISTORY. REVIEW OF SYSTEMS CONSTITUTIONAL: ANY RECENT FEVER NO . CHILLS NO . WEIGHT CHANGE OF UNKNOWN REASONS NO . GASTROENTEROLOGY: NEW UNEXPLAINABLE CHANGES IN BOWEL CONTROL NO . CONSTIPATION NO . GENITOURINARY: ANY NEW CHANGE IN BLADDER CONTROL? NO . NEUROLOGY: NEW ONSET DIZZINESS OR NEUROLOGICAL CHANGES NOT MENTIONED NO . NEW NUMBNESS OR PAIN PATTERNS NOT MENTIONED AND PERTINENT TO TODAY'S VISIT NO . CARDIOLOGY: NEW CHEST PRESSURE NO . NEW CHEST PAIN NO . RESPIRATORY: UNEXPLAINABLE COUGH NO . NEW SHORTNESS OF BREATH NO . VITAL SIGNS WT 185.2 LBS, HT 65 IN, BMI 30.82 INDEX, BP 112/56 MM HG, HR 77 /MIN, RR 18 /MIN, TEMP 98.1 F, OXYGEN SAT % 100%, SAFE IN ENV? (Y/N) YES, REVIEWED BY: JOSEJREVIEWED 08/09/2020 Yarelis PRADO RN. EXAMINATION GENERAL EXAMINATION: GENERALNO ACUTE DISTRESS, WELL NOURISHED AND HYDRATED. PSYCHAPPROPRIATE MOOD AND AFFECT . LUNGS:CLEAR TO AUSCULTATION BILATERALLY, NO WHEEZES, RHONCHI, RALES. HEART:NO MURMURS, REGULAR RATE AND RHYTHM. BACK:POINT TENDER LOWER LUMBAR SPINE, SURROUNDING SKIN SHOWS NO ERYTHEMA, ECCHYMOSIS, INCREASED WARMTH, AND/OR SKIN ERUPTIONS NOTED. POSITIVE MODIFIED SLR LEFT SIDE . MUSCULOSKELETAL:NOTABLE WEAKNESS THE LEFT LOWER EXTREMITY, RIGHT LOWER EXTREMITY WITHIN NORMAL LIMITS . ASSESSMENTS INTERVERTEBRAL DISC DISORDER WITH RADICULOPATHY OF LUMBOSACRAL REGION - M51.17 (PRIMARY) TREATMENT INTERVERTEBRAL DISC DISORDER WITH RADICULOPATHY OF LUMBOSACRAL REGION NOTES: 30-YEAR-OLD FEMALE IN FOR CHRONIC PAIN FOLLOW-UP. GIVEN PRESENTING SYMPTOMS AND RESULTS OF PHYSICAL EXAMINATION RECOMMENDED LUMBAR EPIDURAL STEROID INJECTION L4-L5 L5-S1 WITH POST PROCEDURAL FOLLOW-UP. PATIENT HAS EXPRESSED UNDERSTANDING OF AND WAS IN AGREEMENT WITH TREATMENT PLAN. GIVEN TIME TO ASK QUESTIONS AND EXPRESS CONCERNS. LUMBAR EPIDURAL STEROID INJECTION PROCEDURE INFORMATION PRINTED AND REVIEWED WITH PATIENT. PATIENT VERBLAIZES UNDERSTANDING OF PROCEDURE INFORMATION REVIEWED AND OF PRE PROCEDURE INSTRUCTIONS. 08/09/2020 Yarelis PRADO RN . OTHERS NOTES: PHQ9 DONE WITH PATIENT AND PROVIDER AWARE. PATIENT CUR[facility] 08/09/2020 Yarelis PRADO RN . PROCEDURE CODES FA211 ESTABILISHED PATIENT [facility] F[facility] CHARGE DISPOSITION & COMMUNICATION FOLLOW UP POSTPROCEDURE (REASON: LUMBAR EPIDURAL STEROID INJECTION) ELECTRONICALLY SIGNED BY VERONICA JACQUES ON 08/14/2020 AT 10:35 AM EST DISCLAIMER : THIS IS A VISIT SUMMARY EXTRACTED FROM THE [employer] CHART. IT IS NOT A COPY OF THE [facility] [employer] [employer] PROGRESS NOTE. MTDD
== END ==
LOC: M PAIN 14:00
PROVIDERS: ATTEND Family Medicine
DX: M51.17 Intervertebral disc disorders with radiculopathy, lumbosacral region (principal); G89.29 Other chronic pain; F17.210 Nicotine dependence, cigarettes, uncomplicated; Z86.59 Personal history of other mental and behavioral disorders; Z79.899 Other long term (current) drug therapy

== ENCOUNTER → 2020-08-30 | Outpatient (CLI) | payer OTHER ==
[~2020-08-30] MED LIST changes: +ESCI10TA16 PO; -ESCI10TA2 PO
== END ==
LOC: M LABSMTC 12:17
PROVIDERS: ATTEND Anesthesiology
DX: Z20.828 Contact with and (suspected) exposure to other viral communicable diseases (principal)

== ENCOUNTER → 2020-09-04 | Outpatient (CLI) | payer OTHER ==
[~2020-09-04] MED LIST changes: +ISOVUE-M 300 61% 15ML VIAL As Ordered ONE; +LIDOCAINE 1% SDV 30ML VIAL As Ordered ONE; +ONDANSETRON 4 MG ORAL DISINTEGRATING TAB As Ordered ONE; +diazePAM 5MG TABLET As Ordered ONE; +methylPREDNISolone SUSP 40MG/ML 1ML VIAL (DEPO MEDROL) As Ordered ONE; +oxyCODONE 5MG TAB As Ordered ONE
--- NOTE | 2020-09-04 16:37 | REP ---
INDICATION: LUMBAR EPIDURAL STEROID INJECTION. COMPARISON: None. TECHNIQUE: Two views. 4.3 seconds of fluoroscopy time is reported. FINDINGS: A sequence of 2 last image hold fluoroscopically obtained spot radiograph(s) of the lumbar spine document(s) needle position(s) and contrast injection associated with injection procedure. IMPRESSION: Procedural imaging. <Electronically signed by Lorenzo Lopez > 09/04/20 3609
--- NOTE | 2020-09-06 01:56 | ECWPNPC ---
PATIENT NAME: BETTINA ZAPATA : 1990 GENDER: FEMALE VISIT DATE: 09/04/2020 DISCHARGE DATE: 09/04/20 1700 VISIT LOCKED DATE TIME: PHYSICIAN: ISMAEL AGUILERA MD RESOURCE: ISMAEL AGUILERA MD REASON FOR APPOINTMENT 1. LUMBAR EPIDURAL STEROID INJECTION HISTORY OF PRESENT ILLNESS GENERAL: -. FALL RISK SCREENING: SCREENING :NO FALLS REPORTED IN THE LAST YEAR PAIN SCREENING: PATIENT HAS A COMPLAINT OF ACUTE OR CHRONIC PAIN :YES LOCATION OF PAIN:LOW BACK, LEFT HIP LEFT LEG INTENSITY OF PAIN (SCALE OF 1 TO 10):7 WHAT DOES YOUR PAIN FEEL LIKE:ACHING, BURNING, CONTINOUS, SHARP, STABBING, SHOOTING DURATION:CONTINOUS, AWAKENS FROM SLEEP PAIN IS INCREASED BY:ACTIVITIES, PROLONGED STANDING PAIN IS DECREASED BY:OTHERS CHANGE POSITIONS HELPS PAIN CENTER INTAKE QUESTIONS: DO YOU HAVE A HISTORY OF MRSA? :NO DO YOU TAKE A BLOOD THINNERS? :NO DO YOU HAVE ANY BLEEDING DISORDERS? :NO ANY NEW NUMBNESS OR WEAKNESS IN YOUR LEGS OR ARMS? :NO ANY PACEMAKER,DEFIBRILLATOR, OR DORSAL COLUMN STIMULATOR? :NO DO YOU HAVE ANY RASHES OR OPEN SORES? :NO ARE YOU ALLERGIC TO IV DYE? :NO ARE YOU DIABETIC? :NO ANY NEW PROBLEMS WITH YOUR MEDICATIONS? :NO HAVE YOU RECEIVED A VACCINE IN THE PAST 30 DAYS? :NO DO YOU PLAN TO RECEIVE A VACCINE IN THE NEXT 21 DAYS? :NO DO YOU NEED ANY PRESCRIPTION? :NO DO YOU TAKE ANY IMMUNOSUPPRESSIVE MEDICATIONS? :NO ANY HISTORY OF SEIZURES? :NO ANY HISTORY OF CARDIAC ISSUES OR EVENTS? :NO DO YOU HAVE SLEEP APNEA? :NO ANY RECENT HEAD INJURY? :NO DO YOU HAVE ANY NEW INFECTIONS? :NO IS THERE A CHANCE YOU COULD BE ? :NO ARE YOU BREAST FEEDING? :NO WHEN DID YOU LAST EAT? : 09/03 1899 WHEN DID YOU LAST DRINK? : 09/04 1230 WHAT DID YOU LAST DRINK? : WATER NAME OF PERSON DRIVING YOU HOME? : MARIAMA Quintanilla DO YOU HAVE ANY OTHER QUESTIONS OR CONCERNS? : NO CURRENT MEDICATIONS TAKING TIZANIDINE HCL 2 MG TABLET 1 TABLET NEEDED ORALLY DAILY TAKING GABAPENTIN 300 MG CAPSULE 1 CAPSULE ORALLY THREE TIMES DAILY START DAY 6, NOTES: TAKES NEEDED NONE RECENT TAKING LEXAPRO 20 MG TABLET 1 TABLET ORALLY ONCE A DAY TAKING CLONIDINE HCL 0.2 MG TABLET 1 TABLET ORALLY ONCE A DAY TAKING MAY USE [facility] , NOTES: 09/03 2099 NOT-TAKING FLEXERIL 5 MG TABLET 1 TABLET P.O. ONCE A DAY NEEDED NOT-TAKING GABAPENTIN 100 MG CAPSULE 1 CAPSULE ORALLY THREE TIMES DAILY X 5 DAYS NOT-TAKING IBU-200 200 MG TABLET 1 TABLET WITH FOOD OR MILK NEEDED ORALLY THREE TIMES A DAY MEDICATION LIST REVIEWED AND RECONCILED WITH THE PATIENT PAST MEDICAL HISTORY ANEMIA PTSD/ POST CONCUSSION SYNDROME CHRONIC PAIN ALLERGIES N.K.D.A. SOCIAL HISTORY GENERAL: TOBACCO USE ARE YOU A:CURRENT SMOKER ARE YOU INTERESTED IN QUITTING?NOT READY TO QUIT COUNSELED THE PATIENT ON SMOKING EFFECTS, EDUCATION [id number]/22/2021 HOW MANY CIGARETTES A DAY DO YOU SMOKE?11-20 HOW SOON AFTER YOU WAKE UP DO YOU SMOKE YOUR FIRST CIGARETTE?WITHIN 5 MIN HOW OFTEN DO YOU SMOKE CIGARETTES?SOME DAYS, BUT NOT EVERY DAY PATIENT COUNSELED ON THE DANGERS OF TOBACCO USE AND URGED TO QUIT:09/01/2020 SMOKING CESSATION INFORMATION GIVEN09/01/2020 VAPORNO E-CIGARETTENO LATEX QUESTIONNAIRE LATEX ALLERGY : HAVE YOU EVER DEVELOPED ANY TYPE OF REACTION AFTER HANDLING LATEX PRODUCTS SUCH RUBBER GLOVES, CONDOMS, DIAPHRAGMS, BALLOONS, SOCKS, OR UNDERWEAR?NO LATEX ALLERGY : HAVE YOU EVER DEVELOPED ANY TYPE OF REACTION DURING OR AFTER DENTAL APPOINTMENT, VAGINAL/RECTAL EXAMINATION, SURGICAL PROCEDURE, OR ANY OTHER EXPOSURE?NO LATEX RISK : HAVE YOU EVER HAD ANY DIFFICULTY BREATHING OR HIVES AFTER EATING OR HANDLING ANY FRUITS, OR VEGETABLES; SUCH KIWI, BANANAS, STONE FRUITS, OR CHESTNUTSNO LATEX RISK : DO YOU HAVE A PREVIOUS PERSONAL HISTORY OF MORE THAN NINE SURGERIES, SPINA BIFIDA, OR REPEATED CATHERIZATIONS? NO LATEX RISK : ARE YOU FREQUENTLY EXPOSED TO LATEX PRODUCTS IN YOUR OCCUPATION?NO DATE ASKED : 09/01/2020 ALCOHOL SCREENING DID YOU HAVE A DRINK CONTAINING ALCOHOL IN THE PAST YEAR?YES HOW OFTEN DID YOU HAVE SIX OR MORE DRINKS ON ONE OCCASION IN THE PAST YEAR?NEVER (0 POINTS) HOW MANY DRINKS DID YOU HAVE ON A TYPICAL DAY WHEN YOU WERE DRINKING IN THE PAST YEAR?1 OR 2 (0 POINTS) HOW OFTEN DID YOU HAVE A DRINK CONTAINING ALCOHOL IN THE PAST YEAR?TWO TO FOUR TIMES A MONTH (2 POINTS) POINTS2 INTERPRETATIONNEGATIVE RECREATIONAL DRUG USE DRUG USE?NO CAFFEINE OCCASIONAL ONLY. 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 DIET: REGULAR. EXERCISE: INSANITY CHALLENGE. MARITAL STATUS: SINGLE. OTHERS AT HOME: SPOUSE, CHILDREN 2. - PFS REFERRAL NEEDED?NO CLERGY REFERRAL NEEDED?NO PUBLIC HEALTH REFERRAL NEEDED?NO WAS THE PROVIDER NOTIFIED OF ANY PERTINENT INFO?YES HAS THE PATIENT BEEN EDUCATED REGARDING HIS/HER PLAN OF CARE?YES HAS THE PATIENT BEEN EDUCATED REGARDING PAIN, THE RISK FOR PAIN, THE IMPORTANCE OF EFFECTIVE PAIN MANAGEMENT, AND THE PAIN ASSESSMENT PROCESS?YES ADVANCE DIRECTIVE ADVANCE DIRECTIVE DISCUSSED WITH PATIENT:YES PATIENT HAS NO ADVANCED DIRECTIVES, DECLINES INFORMATION ON HCP. VITAL SIGNS WT 187.6 LBS, HT 65 IN, BMI 31.21 INDEX, BP 116/57 MM HG, HR 75 /MIN, RR 18 /MIN, TEMP 97.5 F, OXYGEN SAT % 99%, SAFE IN ENV? (Y/N) Y, NA INITIALS AW 1427, REVIEWED BY: Chencho CANALES RN 1453. EXAMINATION GENERAL EXAMINATION: THE PATIENT IS ALERT, ORIENTED TIMES THREE AND COOPERATIVE. LUNGS ARE CLEAR TO AUSCULTATION. HEART SHOWS REGULAR RHYTHM, NO MURMURS AND NO GALLOPS. ASSESSMENTS INTERVERTEBRAL DISC DISORDERS WITH RADICULOPATHY, LUMBAR REGION - M51.16 (PRIMARY) TREATMENT INTERVERTEBRAL DISC DISORDERS WITH RADICULOPATHY, LUMBAR REGION [facility] FLUORO GUIDE SPINE INJECTION (PAIN)[id number] MEDICATION: VALIUM TAB 10MG ORALLY (DIAZEPAM)MAINOR CANALES 09/04/2020 2:41:53 PM > LOT # [id number] EXP. 05/2022 ABDIEL HIGHTOWER RN 09/04/2020 2:48:12 PM > VERIFIED. MAINOR CANALES 09/04/2020 2:49:33 PM > ADMINISTERED MEDICATION: OXYCODONE HCL TAB 10MG ORALLYDEMAINOR ROSENTHAL 09/04/2020 2:42:48 PM > LOT # [id number] EXP 09/2021 ABDIEL HIGHTOWER RN 09/04/2020 2:47:12 PM > VERIFIED. MAINOR CANALES 09/04/2020 2:50:05 PM > ADMINISTERED COMPLETION OF PROCEDURAL VISIT WHEN MEETS CRITERIA MEDICATION:(PAIN) ZOFRAN ODT TAB 4MG DISSOLVE ON TONGUE (ONDANSETRON)MAINOR CANALES 09/04/2020 2:45:17 PM > B/N [id number] DEL CASTILLO RN 09/04/2020 2:46:03 PM > EXPIRES DECEMBER 2021. VERIFIED. MAINOR CANALES 09/04/2020 2:50:55 PM > ADMINISTERED OTHERS NOTES: 09/01/20 1542 PAT COMPLETED WITH PATIENT. PATIENT DENIES ANY CHANGES FROM PREVIOUS VISIT TO FAMILY HISTORY, SURGICAL HISTORY OR HOSPITALIZATIONS. Liliana GOMEZ COTTON CLASSER AIDE . PROCEDURES PAIN NURSING RECORD PROCEDURE IN ROOM 1545, PHYSICIAN IN ROOM 1601, START 1606, FINISH 1610, PHYSICIAN OUT OF ROOM 1611, OUT OF ROOM 1619, ECG OTHER SINUS BETINA AND NSR, PATIENT SHIELDED YES, SAFETY STRAP YES, PREP BETADINE BY Chencho CANALES RN, DRESSING TEGADERM BY DR. AGUILERA LOC: MAINOR CANALES 09/04/2020 2:55:02 PM > , 1. ALERT, ORIENTED PARKERMAINOR 09/04/2020 4:24:52 PM > , 1. ALERT, ORIENTED RESP: PARKERMAINOR 09/04/2020 2:55:05 PM > , 1. REGULAR, NO DYSPNEA ,PARKERMAINOR 09/04/2020 4:25:27 PM > , 1. REGULAR, NO DYSPNEA COLOR: PARKERMAINOR 09/04/2020 2:55:09 PM > , 1. PINK PARKERMAINOR 09/04/2020 4:35:45 PM > , 1. PINK SKIN: PARKERMAINOR 09/04/2020 2:55:13 PM > , 1. WARM, DRY PARKERMAINOR 09/04/2020 4:36:02 PM > , 1. WARM, DRY POSITION: PARKERMAINOR 09/04/2020 2:55:17 PM > , 5. SITTING PARKER,MAINOR 09/04/2020 3:46:22 PM > , 1. PRONE MAINOR CANALES 09/04/2020 4:26:48 PM > , 5. SITTING VITALS: MAINOR CANALES 09/04/2020 3:15:23 PM > 109/61,59,16,100% HANNY CANALESITA 09/04/2020 3:48:24 PM > 115/64,65,16,100% PARKER,MAINOR 09/04/2020 3:58:44 PM > 106/59,63,18,100% HANNY CANALESITA 09/04/2020 4:13:45 PM > 105/56,55,16,100% PARKER,MAINOR 09/04/2020 4:17:51 PM > 114/61,65,18,100% PARKER,MAINOR 09/04/2020 4:30:06 PM > 123/58,66,16,98% NOTES MAINOR CANALES 09/04/2020 3:55:36 PM > MEDICATIONS ON PROCEDURE TRAY WERE VERIFIED WITH, Daisy HIGHTOWER RN COMPLETION OF PROCEDURE APPOINTMENT: POST PAIN 2, DRESSING SITE DRY AND INTACT, IV N/A, GAIT STEADY, TEACHING COMPLETED, PATIENT ACKNOWLEDGES UNDERSTANDING YES, PROCEDURE APPOINTMENT COMPLETED AT 1632 PRE PROCEDURE DIAGNOSIS LUMBAR DISC DISORDER WITH RADICULOPATHY POST PROCEDURE DIAGNOSIS LUMBAR DISC DISORDER WITH RADICULOPATHY PROCEDURE LUMBAR EPIDURAL STEROID INJECTION UNDER FLUOROSCOPIC GUIDANCE SURGEON DR. ISMAEL AGUILERA EXTRA HAND NONE ANESTHESIA LOCAL PRE PROCEDURE NOTE THE PATIENT HAS A HISTORY OF CHRONIC LOW BACK PAIN. I EVALUATED THE PATIENT AND REVIEWED THE CHART. I WENT OVER THE RISKS, ALTERNATIVES, AND BENEFITS ASSOCIATED WITH THIS PROCEDURE. THE PATIENT WOULD LIKE TO PROCEED AND GIVE CONSENT TO PERFORMED THE PROCEDURE. THE PATIENT DENIES UNEXPLAINABLE WEIGHT LOSS, FEVER, CHILLS, OR NEW CHANGES IN URINARY OR BOWEL CONTROL. THE PATIENT IS COVID-19 NEGATIVE DESCRIPTION OF PROCEDURE THE PATIENT WAS BROUGHT TO THE PROCEDURE ROOM AND PLACED IN THE PRONE POSITION. THE LUMBOSACRAL AREA WAS CLEANED WITH BETADINE SOLUTION AND DRAPED ASEPTICALLY. THE PROCEDURE WAS DONE UNDER STERILE CONDITIONS. A TIMEOUT WAS PERFORMED WHERE LATERALITY AND THE SITE OF THE PROCEDURE WERE CHECKED AND CONFIRMED WITH EVERYONE IN THE ROOM. UNDER FLUOROSCOPIC GUIDANCE, THE TARGET POINT WAS SELECTED AT THE INTERLAMINAR LEVEL OF L4-L5. I CONFIRMED AGAIN WITH EVERYONE IN THE ROOM THE LATERALITY OF THE TARGET. LIDOCAINE WAS USED TO NUMB THE SKIN AND THE SUBCUTANEOUS TISSUE BELOW IT. EPIDURAL TUOHY NEEDLE, 17-GAUGE, WAS ADVANCED UNDER FLUOROSCOPIC GUIDANCE AND FOLLOWING PATIENT FEEDBACK UNTIL THE EPIDURAL SPACE WAS REACHED 7 CM DEEP INTO THE SKIN BY THE LOSS OF RESISTANCE TECHNIQUE. ISOVUE-M DYE 30%, 0.25 ML, WAS INJECTED SHOWING ADEQUATE SPREAD OF THE DYE. THEN, A SOLUTION OF 3 ML OF NORMAL SALINE WITH DEPO-MEDROL 80 MG WAS INJECTED SLOWLY FOLLOWING PATIENT FEEDBACK. THE MEDICATIONS WERE VERIFIED WITH THE NURSE. THERE WAS NO EVIDENCE OF BLOOD, PARESTHESIA OR CEREBROSPINAL FLUID DURING THE PROCEDURE. THE PATIENT WAS SENT TO THE RECOVERY ROOM. THE PATIENT WAS MOVING THE EXTREMITIES AND DOING WELL. THERE WERE NO COMPLICATIONS DURING THE PROCEDURE. ESTIMATED BLOOD LOSS WAS LESS THAN 5 ML. FLUOROSCOPY TIME WAS 4 SECONDS POST PROCEDURE NOTE THE PATIENT WILL BE SEEN IN A FOLLOW UP IN THE NEXT FEW WEEKS. I AM LOOKING FOR LONG LASTING RELIEF FOR THE PATIENT WITH THIS INTERVENTION. INSTRUCTIONS WERE GIVEN, QUESTIONS WERE ANSWERED, AND THE PATIENT EXPRESSED UNDERSTANDING AND AGREES WITH THE PLAN. I, MARIAMA ZAPATA, DOCUMENTED THE ABOVE INFORMATION ACTING A SCRIBE FOR DR. AGUILERA. I HAVE REVIEWED THE ABOVE DOCUMENT, WRITTEN BY MARIAMA ZAPATA, ENVIRONMENTAL SCIENCE INSTRUCTOR, AND I VERIFY THAT IT IS ACCURATE PROCEDURE CODES 66429 LUMBAR/SACRAL W/ IMAGING DISPOSITION & COMMUNICATION FOLLOW UP FOLLOW UP WITH INTERVENTIONAL CARDIOLOGIST (REASON: POST LUMBAR EPIDURAL STEROID INJECTION) ELECTRONICALLY SIGNED BY ISMAEL AGUILERA MD, MD ON 09/05/2020 AT 01:57 PM EST DISCLAIMER : THIS IS A VISIT SUMMARY EXTRACTED FROM THE [employer] CHART. IT IS NOT A COPY OF THE [employer] PROGRESS NOTE. CHITO
== END ==
LOC: M PAIN 14:30
PROVIDERS: ATTEND Anesthesiology
DX: M51.16 Intervertebral disc disorders with radiculopathy, lumbar region (principal); D64.9 Anemia, unspecified; F43.10 Post-traumatic stress disorder, unspecified; F07.81 Postconcussional syndrome; F17.210 Nicotine dependence, cigarettes, uncomplicated; Z79.899 Other long term (current) drug therapy
CPT/HCPCS: 62323; J1030; Q0162; Q9967

== ENCOUNTER 2021-01-23 16:54 | Emergency (ER) | payer OTHER ==
[~2021-01-23] VITALS: Ht 167.6 cm; Wt 78.2 kg
[~2021-01-23 16:54] MED LIST changes: -ISOVUE-M 300 61% 15ML VIAL As Ordered ONE; -LIDOCAINE 1% SDV 30ML VIAL As Ordered ONE; -ONDANSETRON 4 MG ORAL DISINTEGRATING TAB As Ordered ONE; -diazePAM 5MG TABLET As Ordered ONE; -methylPREDNISolone SUSP 40MG/ML 1ML VIAL (DEPO MEDROL) As Ordered ONE; -oxyCODONE 5MG TAB As Ordered ONE
[2021-01-23 20:19] LABS: RSV AMPLIFICATION NEGATIVE (NEGATIVE)
[2021-01-23 20:49] VITALS: BP 115/55
== END 2021-01-23 20:52 | disposition home or self-care (01) ==
LOC: M ED 16:54
DX: B34.9 Viral infection, unspecified (principal); R05 Cough; R50.9 Fever, unspecified; F17.200 Nicotine dependence, unspecified, uncomplicated

== ENCOUNTER 2021-05-28 09:41 | Emergency (ER) | payer OTHER ==
[~2021-05-28] VITALS: Ht 167.6 cm; Wt 86.1 kg
--- OUTSIDE RECORDS SUMMARY | 2021-05-28 09:46 | CCD ---
Author Organization Unknown Address [address] [place] [id number] Phone [phone] Care Team Providers Care Viticulture Teacher Name Role Phone [facility] 3 [phone] Allergies Code Code System Name Reaction Severity Status Onset NKDA Medications Name Status Start Date Stop Date cetirizine 10 mg tablet TAKE ONE TABLET BY MOUTH EVERY DAY Completed 04/12 clonidine HCl 0.2 mg tablet TAKE ONE TABLET BY MOUTH EVERY DAY Completed 04/12 escitalopram 10 mg tablet TAKE ONE TABLET BY MOUTH EVERY DAY Completed 04/12 escitalopram 20 mg tablet TAKE 1 AND 1/2 TABLETS BY MOUTH ONCE DAILY Completed 04/30/2021 fluticasone propionate 50 mcg/actuation nasal spray,suspension SPRAY ONE SPRAY IN ONE NOSTRIL EVERY DAY Completed 04/30/2021 prednisone 20 mg tablet TAKE THREE TABLETS BY MOUTH EVERY DAY Completed 0 04/30/2021 Zanaflex 4 mg tablet Take 1 tablet 3 times a day by oral route as needed. Active Not available Problems None recorded. Procedures None recorded. Results Lab Results None recorded. Past Encounters 04/30/2021 Lumbar Radiculopathy; Degeneration of Lumbar Intervertebral Disc; Degeneration of Lumbosacral Intervertebral Disc; Displacement of Lumbar Intervertebral Disc without Myelopathy; Intervertebral Disc Disorder; Spondylosis without Myelopathy; Lumbosacral Spondylosis without Myelopathy; Myofascial Pain Vance Noonan MD: [id number] [facility] [address], [address], [place] [phone], Ph. Social History Tobacco Smoking Status Light Tobacco Smoker (1 pack per week ) Notes: 1ppd until 1 years ago now occasionally smokes Vaccine List None recorded. Plan of Care Reminders Provider Appointments None recorded. Lab None recorded. Referral None recorded. Procedures None recorded. Surgeries None recorded. Imaging None recorded. Vitals Height Weight BMI Blood Pressure 5 ft 6 in 176.8 lbs 28.5 kg/m2 119/73 mm[Hg]
--- OUTSIDE RECORDS SUMMARY | 2021-05-28 09:46 | CCD ---
Author Author [facility] Organization [facility] Address Unknown Phone Unavailable Care Team Providers Care Cargo Worker Name Role Phone Robin Tomas Unavailable PROBLEMS Type Condition ICD9-CM Code AAV27-DK Code Onset Dates Condition S tatus W/U Status Risk SNOMED Code Notes Problem Encounter for routine gynecological examination V72.31 Active confirmed [id number] Problem Other chronic pain G89.29 Active confirmed 8 6414412 Problem Tobacco use disorder 305.1 Active confirmed [id number] ALLERGIES No Known Allergies ENCOUNTERS from 1992 to 2021-05-10 Encounter Location Date Provider Diagnosis [facility] [address] Floor [phone] [place] [address] Apr, Robin Tomas IMMUNIZATIONS No Information SOCIAL HISTORY Tobacco Use: Social History Observation Description Date Details (start date - stop date) Current Smoker Sex Assigned At : Social History Observation Description Sex Assigned At Unknown Language: Question Answer Notes Languages spoken: Welsh Alcohol Screening: Question Answer Notes Did you have a drink containing alcohol in the past year? Ye s Points 2 Interpretation Negative How often did you have six or more drinks on one occas ion in the past year? Never (0 points) How many drinks did you have on a typica l day when you were drinking in the past year? 1 or 2 (0 points) How often did you have a drink containing alcohol in t he past year? Two to four times a month (2 points) Tobacco Use: Question Answer Notes Are you a: current smoker Smoking Cessation Information Given 09/01/2020 Patient counseled on the dangers of tobacco use and urged to quit: 09/01/2020 How many cigarettes a day do you smoke? 11-20 Are you interested in quitting? Not ready to quit Counseled the patient on smoking effects, education provided 09/01/2020 REASON FOR REFERRAL No Information VITAL SIGNS No information MEDICATIONS Medication SIG (Take, Route, Frequency, Duration) Notes Start Da te End Date Status IBU-200 200 MG 1 tablet with food or milk as needed Orally Thre e times a day Not-Taking cloNIDine HCl 0.2 MG 1 tablet Orally Once a day Active tiZANidine HCl 2 MG 1 tablet as needed Orally Daily Active Flexeril 5 MG 1 tablet p.o. Once a day as needed for 30 day(s) Not-Taking Gabapentin 300 MG 1 capsule Orally Three times daily start day 6 for 30 day(s) TAKES NEEDED none recent Feb, Active Gabapentin 100 MG 1 capsule Orally Three times daily x 5 days fo r 5 days Feb, Not-Taking Lexapro 20 MG 1 tablet Orally Once a day Active May Use medical marajuana 09/03 2099 Active PROCEDURES No Information RESULTS No Results REASON FOR VISIT [facility] AUTH /APPOINTMENT MEDICAL (GENERAL) HISTORY Type Description Date Medical History ANEMIA Medical History PTSD/ POST CONCUSSION SYNDROME Medical History CHRONIC PAIN Surgical History WISDOM TEETH REMOVAL 2016 Surgical History COLONSCOPY 2018 Goals Section No Information Health Concerns No Information MEDICAL EQUIPMENT No Information MENTAL STATUS No Information FUNCTIONAL STATUS No Information ASSESSMENTS No Information PLAN OF TREATMENT No Information Insurance Providers Payer Name Payer Address Payer Phone Insured Name Patient Relati onship to Insured Coverage Start Date Coverage End Date [facility] [id number] [facility] [id number] BETTINA ZAPATA self
--- OUTSIDE RECORDS SUMMARY | 2021-05-28 09:46 | CCD ---
Author Author [facility] Organization [facility] Address Unknown Phone Unavailable Care Team Providers Care Dredge Or Barge Shore Hand Name Role Phone Fabricio Dian Unavailable PROBLEMS Type Condition ICD9-CM Code BUP03-US Code Onset Dates Condition S tatus W/U Status Risk SNOMED Code Notes Problem PTSD (post-traumatic stress disorder) F43.10 Ac tive confirmed 58072503 Problem Other chronic pain G89.29 Active confirmed 8 0049919 Problem Adjustment disorder with anxious mood F43.22 Ac tive confirmed 57184609 Problem Iron deficiency anemia, unspecified iron deficiency an emia type D50.9 Active confirmed 38166041 Problem Other headache syndrome G44.89 Active confirmed 147033337 Problem Post-traumatic stress disorder, unspecified F43.10 Active confirmed 85129495 ALLERGIES No Known Allergies ENCOUNTERS from 1992 to 2021-05-18 Encounter Location Date Provider Diagnosis [facility] [address] [place] [address] Apr, Dian Regalado IMMUNIZATIONS No Information SOCIAL HISTORY Tobacco Use: Social History Observation Description Date Details (start date - stop date) Former Smoker Sex Assigned At : Social History Observation Description Sex Assigned At Unknown Alcohol Screen Question Answer Notes Did you have a drink containing alcohol in the past year? Ye s Points 1 Interpretation Negative How often did you have a drink containing alcohol in t he past year? Monthly or less (1 point) Tobacco Use/Smoking Question Answer Notes Are you a former smoker Additional Findings: Tobacco Non-User Ex-cigarette smoker How long has it been since you last smoked? 1-3 months REASON FOR REFERRAL No Information VITAL SIGNS No information MEDICATIONS Medication SIG (Take, Route, Frequency, Duration) Notes Start Da te End Date Status Iron 325 (65 Fe) MG 1 tablet Orally q other day Active hydrOXYzine Pamoate 25 MG 1 capsule as needed Orally every 8 hrs for 30 day(s) Feb, Not-Taking Flonase Allergy Relief 50 MCG/ACT 1 spray in each nost ril Nasally Once a day for 30 day(s) Mar, Active Cetirizine HCl 10 MG 1 tablet Orally Once a day for 30 day(s) Mar, Active PROCEDURES No Information RESULTS No Results REASON FOR VISIT Letter MEDICAL (GENERAL) HISTORY Type Description Date Medical History PTSD Medical History Anemia Medical History Adjustment anxiety disorder Surgical History No know Surgical history Hospitalization History [facility] 06/2019 Hospitalization History [facility] behavioral health 04/2020 Goals Section No Information Health Concerns No Information MEDICAL EQUIPMENT No Information MENTAL STATUS No Information FUNCTIONAL STATUS No Information ASSESSMENTS No Information PLAN OF TREATMENT No Information Insurance Providers Payer Name Payer Address Payer Phone Insured Name Patient Relati onship to Insured Coverage Start Date Coverage End Date [employer] [facility] - [employer] MEDICAID [address] [facility] [id number] Dara Villeda self
--- OUTSIDE RECORDS SUMMARY | 2021-05-28 09:46 | CCD ---
Author Author [facility] Organization [facility] Address Unknown Phone Unavailable Care Team Providers Care Packaging Line Operator Name Role Phone Amy Keely Unavailable PROBLEMS Type Condition ICD9-CM Code MGG04-SN Code Onset Dates Condition S tatus W/U Status Risk SNOMED Code Notes Problem PTSD (post-traumatic stress disorder) F43.10 Ac tive confirmed 00818978 Problem Other chronic pain G89.29 Active confirmed 8 1889386 Problem Adjustment disorder with anxious mood F43.22 Ac tive confirmed 26834736 Problem Iron deficiency anemia, unspecified iron deficiency an emia type D50.9 Active confirmed 73159105 Problem Other headache syndrome G44.89 Active confirmed 892429431 Problem Post-traumatic stress disorder, unspecified F43.10 Active confirmed 62307840 ALLERGIES No Known Allergies ENCOUNTERS from 1992 to 2021-05-04 Encounter Location Date Provider Diagnosis [address] [address] Apr, Keelyfrancis Reyes IMMUNIZATIONS No Information SOCIAL HISTORY Tobacco Use: [...] Information RESULTS No Results REASON FOR VISIT [facility] Referral MEDICAL (GENERAL) HISTORY Type Description Date Medical History PTSD Medical History Anemia Medical History Adjustment anxiety disorder Surgical History No know Surgical history Hospitalization History [facility] 06/2019 Hospitalization History [facility] behavioral health 04/2020 Goals Section No Information Health Concerns No Information MEDICAL EQUIPMENT No Information MENTAL STATUS No Information FUNCTIONAL STATUS No Information ASSESSMENTS No Information PLAN OF TREATMENT Next Appt Details Provider Name:Melo Medina, 05-10 03:30:00 PM, [address] [place] [address], [id number], Insurance Providers Payer Name Payer Address Payer Phone Insured Name Patient Relati onship to Insured Coverage Start Date Coverage End Date [employer] [facility] - [employer] MEDICAID [address] [place] [phone] Dara Villeda self
--- OUTSIDE RECORDS SUMMARY | 2021-05-28 09:47 | CCD ---
Author Author [facility] Organization [facility] Address Unknown Phone Unavailable Care Team Providers Care Windrower Operator Name Role Phone AmyDoraKeely Unavailable PROBLEMS Type Condition ICD9-CM Code ZQM05-UC Code Onset Dates Condition S tatus W/U Status Risk SNOMED Code Notes Problem Post-traumatic stress disorder, unspecified F43.10 Active confirmed 86927792 Problem PTSD (post-traumatic stress disorder) F43.10 Ac tive confirmed 71192599 Problem Adjustment disorder with anxious mood F43.22 Ac tive confirmed 54262099 Problem Iron deficiency anemia, unspecified iron deficiency an emia type D50.9 Active confirmed 97982885 Problem Other headache syndrome G44.89 Active confirmed 470872442 ALLERGIES No Known Allergies ENCOUNTERS from 1992 to 2021-03-29 Encounter Location Date Provider Diagnosis [address] [address] Mar, Keely Reyes Sore throat J02.9 IMMUNIZATIONS No Information SOCIAL HISTORY Tobacco Use: [...] Notes Start Da te End Date Status hydrOXYzine Pamoate 25 MG 1 capsule as needed Orally every 8 hrs for 30 day(s) Feb, Not-Taking Cetirizine HCl 10 MG 1 tablet Orally Once a day for 30 day(s) Mar, Active Iron 325 (65 Fe) MG 1 tablet Orally q other day Active Flonase Allergy Relief 50 MCG/ACT 1 spray in each nost ril Nasally Once a day for 30 day(s) Mar, Active PROCEDURES No Information RESULTS No Results REASON FOR VISIT referral MEDICAL (GENERAL) HISTORY Type Description Date Medical History PTSD Medical History Anemia Medical History Adjustment anxiety disorder Surgical History No know Surgical history Hospitalization History [facility] 06/2019 Hospitalization History [facility] behavioral [facility] 04/2020 Goals Section No Information Health Concerns No Information MEDICAL EQUIPMENT No Information MENTAL STATUS No Information FUNCTIONAL STATUS No Information ASSESSMENTS Encounter Date Diagnosis Assessment Notes Treatment Notes Treatm ent Clinical Notes Mar, Sore throat (ICD-10 - J02.9) PLAN OF TREATMENT Medication Medication Name Sig Start Date Stop Date Flonase Allergy Relief 50 MCG/ACT 1 spray in each nost ril Nasally Once a day for 30 day(s) Mar, Cetirizine HCl 10 MG 1 tablet Orally Once a day for 30 day(s) Mar, Next Appt Details Provider Name:Naniclifford Medina, 2021-03-30 1 0:00:00 AM, [address] [place] [address], [address], Insurance Providers Payer Name Payer Address Payer Phone Insured Name Patient Relati onship to Insured Coverage Start Date Coverage End Date [facility] - [employer] MEDICAID [address] [place] [phone] Dara Villeda self
--- OUTSIDE RECORDS SUMMARY | 2021-05-28 09:47 | CCD ---
Author Author [facility] Organization [facility] Address Unknown Phone Unavailable Care Team Providers Care Personal Injury Paralegal Name Role Phone Keely Reyes Unavailable PROBLEMS Type Condition ICD9-CM Code WZV67-AZ Code Onset Dates Condition S tatus W/U Status Risk SNOMED Code Notes Problem PTSD (post-traumatic stress disorder) F43.10 Ac tive confirmed 31818748 Problem Other chronic pain G89.29 Active confirmed 8 1689238 Problem Adjustment disorder with anxious mood F43.22 Ac tive confirmed 19742799 Problem Iron deficiency anemia, unspecified iron deficiency an emia type D50.9 Active confirmed 45564327 Problem Other headache syndrome G44.89 Active confirmed 539844023 Problem Post-traumatic stress disorder, unspecified F43.10 Active confirmed 37493456 ALLERGIES No Known Allergies ENCOUNTERS from 1992 to 2021-04-18 Encounter Location Date Provider Diagnosis [address] [address] Apr, Keelyzach Reyes Low back pain M54.5 and Othe r chronic pain G89.29 IMMUNIZATIONS No Information SOCIAL HISTORY Tobacco Use: [...] last smoked? 1-3 months REASON FOR REFERRAL from 1992 to 2021-04-18 Reason Pt is a 30 y/o female braden hernandez with chronic lumbar back pain. Please eval and treat, thank you. Diagnosis 1 Low back pain (M54.5) Referral Organization [facility] Referring Provider First Name Keely Referring Provider Last Name Amy Referring Provider Specialty Family Medicine Referred Provider ISMAEL LEMA Referred Provider Specialty Pain Medicine Referral Priority Urgent General Notes Lory Viera 04/18/2021 7:00: 52 AM > Please schedule patient and follow up. Thank you!Faiza Smart LPN 04/18/2021 7:48:26 AM > There are no recent notes to send with referral. Please update office with appt date/time. Thank you!Faiza Smart LPN 04/18/2021 8:12:45 AM > [facility] paper auth completed/faxAmber Rodrigues LPN 04/18/2021 2:39:37 PM > Refaxed to [facility] per the patient. VITAL SIGNS No information MEDICATIONS Medication SIG [...] Information RESULTS No Results REASON FOR VISIT Referral MEDICAL (GENERAL) HISTORY Type Description Date Medical History PTSD Medical History Anemia Medical History Adjustment anxiety disorder Surgical History No know Surgical history Hospitalization History [facility] 06/2019 Hospitalization History [facility] 04/2020 Goals Section No Information Health Concerns No Information MEDICAL EQUIPMENT No Information MENTAL STATUS No Information FUNCTIONAL STATUS No Information ASSESSMENTS Encounter Date Diagnosis Assessment Notes Treatment Notes Treatm ent Clinical Notes Apr, Low back pain (ICD-10 - M54.5) Apr, Other chronic pain (ICD-10 - G89.29) PLAN OF TREATMENT Referrals Referral Date Details Pt is a 30 y/o female braden hernandez with chronic lumbar back pain. Please eval and treat, thank you., ISMAEL LEMA Insurance Providers Payer Name Payer Address Payer Phone Insured Name Patient Relati onship to Insured Coverage Start Date Coverage End Date [facility] - [employer] MEDICAID [address] [facility] [id number] Dara Villeda self
--- OUTSIDE RECORDS SUMMARY | 2021-05-28 09:47 | CCD ---
Author Author [facility] Organization [facility] Address Unknown Phone Unavailable Care Team Providers Care Preventative Maintenance Technician Name Role Phone Amy Keely Unavailable PROBLEMS Type Condition ICD9-CM Code KEA77-LX Code Onset Dates Condition S tatus W/U Status Risk SNOMED Code Notes Problem PTSD (post-traumatic stress disorder) F43.10 Ac tive confirmed 51548771 Problem Other chronic pain G89.29 Active confirmed 8 7973925 Problem Adjustment disorder with anxious mood F43.22 Ac tive confirmed 35377724 Problem Iron deficiency anemia, unspecified iron deficiency an emia type D50.9 Active confirmed 54978340 Problem Other headache syndrome G44.89 Active confirmed 609049719 Problem Post-traumatic stress disorder, unspecified F43.10 Active confirmed 32187653 ALLERGIES No Known Allergies ENCOUNTERS from 1992 to 2021-04-20 Encounter Location Date Provider Diagnosis [address] [address] Apr, Keelyfrancis Reyes IMMUNIZATIONS No Information SOCIAL [...] No know Surgical history Hospitalization History TBI [facility] 06/2019 Hospitalization History [facility] behavioral health 04/2020 Goals Section No Information Health Concerns No Information MEDICAL EQUIPMENT No Information MENTAL STATUS No Information FUNCTIONAL STATUS No Information ASSESSMENTS No Information PLAN OF TREATMENT Next Appt Details Provider Name:Melo Medina, 05-10 03:30:00 PM, [address] [place] [address], [address], Insurance Providers Payer Name Payer Address Payer Phone Insured Name Patient Relati onship to Insured Coverage Start Date Coverage End Date [facility] - [employer] MEDICAID [address] [place] [phone] Dara Villeda self
--- OUTSIDE RECORDS SUMMARY | 2021-05-28 09:47 | CCD ---
Author Author [facility] Organization [facility] Address Unknown Phone Unavailable Care Team Providers Care Public Health Clinical Nurse Specialist Name Role Phone Mateus Quinn Unavailable PROBLEMS Type Condition ICD9-CM Code GZQ26-LL Code Onset Dates Condition S tatus W/U Status Risk SNOMED Code Notes Problem Post-traumatic stress disorder, unspecified F43.10 Active confirmed 19609146 Problem PTSD (post-traumatic stress disorder) F43.10 Ac tive confirmed 51733349 Problem Adjustment disorder with anxious mood F43.22 Ac tive confirmed 38533990 Problem Iron deficiency anemia, unspecified iron deficiency an emia type D50.9 Active confirmed 51904754 Problem Other headache syndrome G44.89 Active confirmed 085560804 ALLERGIES No Known Allergies ENCOUNTERS from 1992 to 2021-03-19 Encounter [place] [address] Mar, Mateus Quinn Pharyngitis, unspecified etiology J02.9 and Post-nasal drip R09.82 IMMUNIZATIONS No Information SOCIAL HISTORY Tobacco Use: [...] REASON FOR REFERRAL No Information VITAL SIGNS Height 65 in Mar, Temperature 98.0 degrees Fahrenheit Mar, Heart Rate 73 /min Mar, Respiratory Rate 18 /min Mar, Oximetry 99 % Mar, Blood pressure systolic 120 mmHg Mar, Blood pressure diastolic 74 mmHg Mar, MEDICATIONS Medication SIG (Take, Route, Frequency, Duration) [...] Information RESULTS No Results REASON FOR VISIT chronic sore throat MEDICAL (GENERAL) HISTORY Type Description Date Medical History PTSD Medical History Anemia Medical History Adjustment anxiety disorder Surgical History No know Surgical history Hospitalization History [facility] 06/2019 Hospitalization History [facility] 04/2020 Goals Section No Information Health Concerns No Information MEDICAL EQUIPMENT No Information MENTAL STATUS No Information FUNCTIONAL STATUS No Information ASSESSMENTS Encounter Date Diagnosis Assessment Notes Treatment Notes Treatm ent Clinical Notes Mar, Pharyngitis, unspecified etiology (ICD-10 - J02. 9) Take meds as prescribed if no improvement in about a week call back, will refer to ENT. , All questions and concerns addressed, patient understanding and agreeable to plan. Patient encouraged to follow up at the clinic for any additional or new questions or concerns. Mar, Post-nasal drip (ICD-10 - R09.82) PLAN OF TREATMENT Medication Medication Name Sig Start Date Stop Date Flonase Allergy Relief 50 MCG/ACT 1 spray in each nost ril Nasally Once a day for 30 day(s) Mar, Cetirizine HCl 10 MG 1 tablet Orally Once a day for 30 day(s) Mar, Treatment Notes Assessment Notes Clinical Notes Pharyngitis, unspecified etiology Take meds as prescri bed if no improvement in about a week call back, will refer to ENT. , All questions and concerns addressed, patient understanding and agreeable to plan. Patient encouraged to follow up at the clinic for any additional or new questions or concerns. Next Appt Details prn Reason: Insurance Providers Payer Name Payer Address Payer Phone Insured Name Patient Relati onship to Insured Coverage Start Date Coverage End Date [employer] [facility] - [employer] MEDICAID [address] [facility] [id number] Dara Villeda self
--- OUTSIDE RECORDS SUMMARY | 2021-05-28 09:47 | CCD ---
Author Author [facility] Organization [facility] Address Unknown Phone Unavailable Care Team Providers Care Rough And Trueing Machine Operator Name Role Phone Keely Reyes Unavailable PROBLEMS Type Condition ICD9-CM Code EMW64-PK Code Onset Dates Condition S tatus W/U Status Risk SNOMED Code Notes Problem Post-traumatic stress disorder, unspecified F43.10 Active confirmed 69384759 Problem PTSD (post-traumatic stress disorder) F43.10 Ac tive confirmed 50082164 Problem Adjustment disorder with anxious mood F43.22 Ac tive confirmed 71498207 Problem Iron deficiency anemia, unspecified iron deficiency an emia type D50.9 Active confirmed 06886527 Problem Other headache syndrome G44.89 Active confirmed 795631754 ALLERGIES No Known Allergies ENCOUNTERS from 1992 to 2021-03-23 Encounter [place] [address] 13 Mar, 2021 Keely Reyes IMMUNIZATIONS No Information SOCIAL HISTORY Tobacco [...] Information RESULTS No Results REASON FOR VISIT [facility] MEDICAL (GENERAL) HISTORY Type Description Date Medical History PTSD Medical History Anemia Medical History Adjustment anxiety disorder Surgical History No know Surgical history Hospitalization History TBI [facility] 06/[address] [facility] behavioral health 04/2020 Goals Section No Information Health Concerns No Information MEDICAL EQUIPMENT No Information MENTAL STATUS No Information FUNCTIONAL STATUS No Information ASSESSMENTS No Information PLAN OF TREATMENT Medication Medication Name Sig Start Date Stop Date Flonase Allergy Relief 50 MCG/ACT 1 spray in each nost ril Nasally Once a day for 30 day(s) Mar, Cetirizine HCl 10 MG 1 tablet Orally Once a day for 30 day(s) Mar, Next Appt Details Provider Name:Nani Medina, 2021-03-30 1 0:00:00 AM, [address] [place] [address], [address], Insurance Providers Payer Name Payer Address Payer Phone Insured Name Patient Relati onship to Insured Coverage Start Date Coverage End Date [facility] - [employer] MEDICAID [address] [facility] [id number] Dara Villeda self
--- OUTSIDE RECORDS SUMMARY | 2021-05-28 09:47 | CCD ---
Author Author [facility] Organization [facility] Address Unknown Phone Unavailable Care Team Providers Care Black And White Printer Operator Name Role Phone Keely Reyes Unavailable PROBLEMS Type Condition ICD9-CM Code SVS56-DV Code Onset Dates Condition S tatus W/U Status Risk SNOMED Code Notes Problem Post-traumatic stress disorder, unspecified F43.10 Active confirmed 34086034 Problem PTSD (post-traumatic stress disorder) F43.10 Ac tive confirmed 42217545 Problem Adjustment disorder with anxious mood F43.22 Ac tive confirmed 34150859 Problem Iron deficiency anemia, unspecified iron deficiency an emia type D50.9 Active confirmed 02074871 Problem Other headache syndrome G44.89 Active confirmed 298399484 ALLERGIES No Known Allergies ENCOUNTERS from 1992 to 2021-03-26 Encounter [place] [address] Mar, Keely Reyes IMMUNIZATIONS No Information SOCIAL HISTORY [...] Information RESULTS No Results REASON FOR VISIT Triage and ENT MEDICAL (GENERAL) HISTORY Type Description Date Medical History PTSD Medical History Anemia Medical History Adjustment anxiety disorder Surgical History No know Surgical history Hospitalization History [facility] 06/2019 Hospitalization History [facility] behavioral health 04/2020 Goals Section No [...] Provider Name:Nani Medina, 2021-03-30 1 0:00:00 AM, [address] [place] [address], [address], Insurance Providers Payer Name Payer Address Payer Phone Insured Name Patient Relati onship to Insured Coverage Start Date Coverage End Date [facility] - [employer] MEDICAID [address] [facility] [id number] Dara Villeda self
--- OUTSIDE RECORDS SUMMARY | 2021-05-28 09:47 | CCD ---
Author Author [facility] Organization [facility] Address Unknown Phone Unavailable Support Name Relationship Address Phone Hubub Next Of Kin [phone] [facility] [address] [place] [phone] [employer] ([employer] Next Of Kin [address] [place] [address] CHERYL VILLEDA Next Of Kin [address] [place] [address] ALIYA VILLEDA Next Of Kin [address] [facility] [address] [id number] OTHEMP Next Of Kin Unknown Unavailable CHERYL ALLAN Next Of Kin [address] [facility] [address] [place] [address] JEFFCOCHIL Next Of Kin [address] [facility] [address] [place] [address] JRC* [place] [address] UE Next Of Kin Unknown Unavailable Vaibhav VILLEDA Next Of Kin [address] [place] [address] [employer]REAM Next Of Kin [address] [place] [address] TIMELESS Next Of Kin [address] [place] [address] [employer] ([employer]) Next Of Kin [address] [facility] [address] [place] [address] LIBBY HARRELL Next Of Kin [address] [facility] [address] [place] [address] [place] [place] [address] Unavailable Cheryl Villeda ECON [address] [place] [address] Unavailable Care Team Providers Care Health Outreach Worker Name Role Phone ANDREWOSZEK, A EBONY PA Unavailable Unavailable BARTOSZEK, A EBONY PA Unavailable Unavailable BRITTON, LIVIA Unavailable Unavailable Amy, M Keely PA-C Unavailable Unavailable Amy, M Keely PA-C Unavailable Unavailable Amy, M Keely PA-C Unavailable Unavailable Amy, M Keely PA-C Unavailable Unavailable Amy, M Keely PA-C Unavailable Unavailable Amy, M Keely PA-C Unavailable Unavailable Amy, M Keely PA-C Unavailable Unavailable Amy, M Keely PA-C Unavailable Unavailable Amy, M Keely PA-C Unavailable Unavailable Amy, M Keely PA-C Unavailable Unavailable Amy, M Keely PA-C Unavailable Unavailable Amy, M Keely PA-C Unavailable Unavailable Amy, M Keely PA-C Unavailable Unavailable Amy, M Keely PA-C Unavailable Unavailable Amy, M Keely PA-C Unavailable Unavailable Amy, M Keely PA-C Unavailable Unavailable Amy, M Keely PA-C Unavailable Unavailable Amy, M Keely PA-C Unavailable Unavailable Amy, M Keely PA-C Unavailable Unavailable Amy, M Keely PA-C Unavailable Unavailable Amy, M Keely PA-C Unavailable Unavailable Amy, M Keely PA-C Unavailable Unavailable Amy, M Keely PA-C Unavailable Unavailable Amy, M Keely PA-C Unavailable Unavailable Amy, M Keely PA-C Unavailable Unavailable Amy, M Keely PA-C Unavailable Unavailable Amy, M Keely PA-C Unavailable Unavailable Amy, M Keely PA-C Unavailable Unavailable Amy, M Keely PA-C Unavailable Unavailable Amy, M Keely PA-C Unavailable Unavailable Amy, M Keely PA-C Unavailable Unavailable Amy, M Keely PA-C Unavailable Unavailable Amy, M Keely PA-C Unavailable Unavailable Amy, M Keely PA-C Unavailable Unavailable Amy, M Keely PA-C Unavailable Unavailable ROMERO, GABE Unavailable Unavailable ROMERO, GABE Unavailable Unavailable ROMERO, GABE Unavailable Unavailable ROMERO, GABE Unavailable Unavailable ROMERO, GABE Unavailable Unavailable ROMERO, GABE Unavailable Unavailable ROMERO, GABE Unavailable Unavailable ROMERO, GABE Unavailable Unavailable ROMERO, GABE Unavailable Unavailable ROMERO, GABE Unavailable Unavailable ROMERO, GABE Unavailable Unavailable ROMERO, GABE Unavailable Unavailable ROMERO, GABE Unavailable Unavailable ROMERO, GABE Unavailable Unavailable ROMERO, GABE Unavailable Unavailable ROMERO, GABE Unavailable Unavailable ROMERO, GABE Unavailable Unavailable ROMERO, GABE Unavailable Unavailable ROMERO, GABE Unavailable Unavailable ROMERO, GABE Unavailable Unavailable ROMERO, GABE Unavailable Unavailable ROMERO, GABE Unavailable Unavailable ROMERO, GABE Unavailable Unavailable ROMERO, GABE Unavailable Unavailable ROMERO, GABE Unavailable Unavailable ROMERO, GABE Unavailable Unavailable ROMERO, GABE Unavailable Unavailable Regalado, Mainor Unavailable Regalado, Mainor Unavailable REGALADO, MAINOR Unavailable Unavailable DESJARLAIS, ADITI ATHLETE MANAGER Unavailable Unavailable DESJARLAIS, ADITI ATHLETE MANAGER Unavailable Unavailable DESJARLAIS, ADITI ATHLETE MANAGER Unavailable Unavailable DESJARLAIS, ADITI ATHLETE MANAGER Unavailable Unavailable DESJARLAIS, ADITI ATHLETE MANAGER Unavailable Unavailable DESJARLAIS, ADITI ATHLETE MANAGER Unavailable Unavailable DESJARLAIS, ADITI ATHLETE MANAGER Unavailable Unavailable DESJARLAIS, ADITI ATHLETE MANAGER Unavailable Unavailable DESJARLAIS, ADITI ATHLETE MANAGER Unavailable Unavailable YAKELIN, AURELIANO Unavailable Unavailable ISIS LANGSTON, Unavailable Unavailable NANCY LOW Unavailable Unavailable AMRK, ANSELMO NAGY PA Unavailable Unavailable MARK, ANSELMO YAKOV PA Unavailable Unavailable MARK, ANSELMO YAKOV PA Unavailable Unavailable MARK, ANSELMO YAKOV PA Unavailable Unavailable MARK, ANSELMO YAKOV PA Unavailable Unavailable MARK, ANSELMO YAKOV PA Unavailable Unavailable MARK, ANSELMO YAKOV PA Unavailable Unavailable MARK, ANSELMO YAKOV PA Unavailable Unavailable MARK, ANSELMO YAKOV PA Unavailable Unavailable MARK, ANSELMO YAKOV PA Unavailable Unavailable MARK, ANSELMO YAKOV PA Unavailable Unavailable MARK, ANSELMO YAKOV PA Unavailable Unavailable MARK, ANSELMO YAKOV PA Unavailable Unavailable MARK, ANSELMO YAKOV PA Unavailable Unavailable MARK, ANSELMO YAKOV PA Unavailable Unavailable MARK, ANSELMO YAKOV PA Unavailable Unavailable MARK, ANSELMO YAKOV PA Unavailable Unavailable MARK, ANSELMO YAKOV PA Unavailable Unavailable MARK, ANSELMO YAKOV PA Unavailable Unavailable MARK, ANSELMO YAKOV PA Unavailable Unavailable MARK, ANSELMO YAKOV PA Unavailable Unavailable MARK, ANSELMO YAKOV PA Unavailable Unavailable Fabiola Noonan MD Unavailable Unavailable BolFabiola drummond MD Unavailable Unavailable BolFabiola drummond MD Unavailable Unavailable Fabiola Noonan MD Unavailable Unavailable Fabiola Noonan MD Unavailable Unavailable Fabiola Noonan MD Unavailable Unavailable Fabiola Noonan MD Unavailable Unavailable Fabiola Noonan MD Unavailable Unavailable Fabiola Noonan MD Unavailable Unavailable Fabiola Noonan MD Unavailable Unavailable Fabiola Noonan MD Unavailable Unavailable Fabiola Noonan MD Unavailable Unavailable Fabiola Noonan MD Unavailable Unavailable Fabiola Noonan MD Unavailable Unavailable Fabiola Noonan MD Unavailable Unavailable Fabiola Noonan MD Unavailable Unavailable Fabiola Noonan MD Unavailable Unavailable Fabiola Noonan MD Unavailable Unavailable Fabiola Noonan MD Unavailable Unavailable Fabiola Noonan MD Unavailable Unavailable Fabiola Noonan MD Unavailable Unavailable Fabiola Noonan MD Unavailable Unavailable Fabiola Noonan MD Unavailable Unavailable Fabiola Noonan MD Unavailable Unavailable Fabiola Noonan MD Unavailable Unavailable Fabiola Noonan MD Unavailable Unavailable Fabiola Noonan MD Unavailable Unavailable Fabiola Noonanuplawrence COX Unavailable Unavailable Fabiola Noonan MD Unavailable Unavailable Fabiola Noonan MD Unavailable Unavailable Fabiola Noonan MD Unavailable Unavailable Fabiola Noonan MD Unavailable Unavailable BolFabiola drummondVance MD Unavailable Unavailable Fabiola Noonan MD Unavailable Unavailable BolFabiola drummondVance MD Unavailable Unavailable Fabiola Noonan MD Unavailable Unavailable Fabiola Noonan MD Unavailable Unavailable BolFabiola drummondVance MD Unavailable Unavailable Bolla, S Vance COX Unavailable Unavailable Bolla, S Vance COX Unavailable Unavailable Bolla, S Vance COX Unavailable Unavailable Bolla, S Vance COX Unavailable Unavailable Bolla, S Vance COX Unavailable Unavailable Bolla, S Vance COX Unavailable Unavailable Bolla, S Vance COX Unavailable Unavailable Bolla, S Vance COX Unavailable Unavailable Bolla, S Vance COX Unavailable Unavailable Bolla, S Vance COX Unavailable Unavailable Bolla, S Vance COX Unavailable Unavailable Carol, Reginah W Nani ENERGY PROJECT ENGINEER-C Unavailable Unavailabl e Carol, Reginah W Nani ENERGY PROJECT ENGINEER-C Unavailable Unavailabl e Carol, Reginah W Nani ENERGY PROJECT ENGINEER-C Unavailable Unavailabl e Carol, Reginah W Nani ENERGY PROJECT ENGINEER-C Unavailable Unavailabl e Carol, Reginah W Nani ENERGY PROJECT ENGINEER-C Unavailable Unavailabl e Carol, Reginah W Nani ENERGY PROJECT ENGINEER-C Unavailable Unavailabl e Carol, Reginah W Nani ENERGY PROJECT ENGINEER-C Unavailable Unavailabl e Carol, Reginah W Nani ENERGY PROJECT ENGINEER-C Unavailable Unavailabl e Carol, Reginah W Nani ENERGY PROJECT ENGINEER-C Unavailable Unavailabl e Carol, Reginah W Nani ENERGY PROJECT ENGINEER-C Unavailable Unavailabl e Carol, Reginah W Nani ENERGY PROJECT ENGINEER-C Unavailable Unavailabl e Carol, Reginah W Nani ENERGY PROJECT ENGINEER-C Unavailable Unavailabl e Carol, Reginah W Nani ENERGY PROJECT ENGINEER-C Unavailable Unavailabl e Carol, Reginah W Nani ENERGY PROJECT ENGINEER-C Unavailable Unavailabl e Carol, Reginah W Nani ENERGY PROJECT ENGINEER-C Unavailable Unavailabl e Carol, Reginah W Nani ENERGY PROJECT ENGINEER-C Unavailable Unavailabl e Carol, Reginah W Nani ENERGY PROJECT ENGINEER-C Unavailable Unavailabl e Carol, Reginah W Nani ENERGY PROJECT ENGINEER-C Unavailable Unavailabl e Carol, Reginah W Nani ENERGY PROJECT ENGINEER-C Unavailable Unavailabl e Carol, Reginah W Nani ENERGY PROJECT ENGINEER-C Unavailable Unavailabl e Carol, Reginah W Nani ENERGY PROJECT ENGINEER-C Unavailable Unavailabl e Carol, Steffi Cardoza ENERGY PROJECT ENGINEER-C Unavailable Unavailabl e Carol, Steffi Cardoza ENERGY PROJECT ENGINEER-C Unavailable Unavailabl e Carol, Steffi Cardoza ENERGY PROJECT ENGINEER-C Unavailable Unavailabl e Carol, Steffi Cardoza ENERGY PROJECT ENGINEER-C Unavailable Unavailabl e Carol, Steffi Cardoza ENERGY PROJECT ENGINEER-C Unavailable Unavailabl e Carol, Steffi Bernardoyce ENERGY PROJECT ENGINEER-C Unavailable Unavailabl e Carol, Steffi Bernardoyce ENERGY PROJECT ENGINEER-C Unavailable Unavailabl e Carol, Steffi Bernardoyce ENERGY PROJECT ENGINEER-C Unavailable Unavailabl e Carol, Steffi Bernardoyce ENERGY PROJECT ENGINEER-C Unavailable Unavailabl e Carol, Steffi Bernardoyce ENERGY PROJECT ENGINEER-C Unavailable Unavailabl e Carol, Steffi Bernardoyce ENERGY PROJECT ENGINEER-C Unavailable Unavailabl e Mindy ORTIZ Unavailable Unavailable DUSTY, ASHLI PA Unavailable Unavailable DUSTY, ASHLI PA Unavailable Unavailable DUSTY, ASHLI PA Unavailable Unavailable DUSTY, ASHLI PA Unavailable Unavailable DUSTY, ASHLI PA Unavailable Unavailable DUSTY, ASHLI PA Unavailable Unavailable DUSTY, ASHLI PA Unavailable Unavailable DUSTY, ASHLI PA Unavailable Unavailable DUSTY, ASHLI PA Unavailable Unavailable DUSTY, ASHLI PA Unavailable Unavailable DUSTY, ASHLI PA Unavailable Unavailable DUSTY, ASHLI PA Unavailable Unavailable DUSTY, ASHLI PA Unavailable Unavailable DUSTY, ASHLI PA Unavailable Unavailable DUSTY, ASHLI PA Unavailable Unavailable Fabiola COSTELLO Unavailable Unavailable Fabiola COSTELLO Unavailable Unavailable LEONOR, L PATTI PA Unavailable Unavailable LEONOR, L PATTI PA Unavailable Unavailable LEONOR, L PATTI PA Unavailable Unavailable LEONOR, L PATTI PA Unavailable Unavailable LEONOR, L PATTI PA Unavailable Unavailable LEONOR, L PATTI PA Unavailable Unavailable LEONOR, L PATTI PA Unavailable Unavailable LEONOR, L PATTI PA Unavailable Unavailable LEONOR, L PATTI PA Unavailable Unavailable LEONOR, L PATTI PA Unavailable Unavailable LEONOR, L PATTI PA Unavailable Unavailable LEONOR, L PATTI PA Unavailable Unavailable LEONOR, L PATTI PA Unavailable Unavailable LEONOR, L PATTI PA Unavailable Unavailable LEONOR, L PATTI PA Unavailable Unavailable LEONOR, L PATTI PA Unavailable Unavailable LEONOR, L PATTI PA Unavailable Unavailable LEONOR, L PATTI PA Unavailable Unavailable LEONOR, L PATTI PA Unavailable Unavailable LEONOR, L PATTI PA Unavailable Unavailable LEONOR, L PATTI PA Unavailable Unavailable LEONOR, L PATTI PA Unavailable Unavailable DIANA, ISHAN BENNY PA-C Unavailable Unavailable DIANA, ISHAN BENNY PA-C Unavailable Unavailable DIANA, ISHAN BENNY PA-C Unavailable Unavailable DIANA, ISHAN BENNY PA-C Unavailable Unavailable DIANA, ISHAN BENNY PA-C Unavailable Unavailable DIANA, ISHAN BENNY PA-C Unavailable Unavailable DIANA, SIHAN BENNY PA-C Unavailable Unavailable DIANA, ISHAN BENNY PA-C Unavailable Unavailable DIANA, ISHAN BENNY PA-C Unavailable Unavailable DIANA, ISHAN BENNY PA-C Unavailable Unavailable Cheyenne, Clair Mateus ENERGY PROJECT ENGINEER Unavailable Unavailable Bessemer, Clair Mateus ENERGY PROJECT ENGINEER Unavailable Unavailable Cheyenne, Clair Mateus ENERGY PROJECT ENGINEER Unavailable Unavailable Bessemer, Clair Mateus ENERGY PROJECT ENGINEER Unavailable Unavailable Bessemer, Clair Mateus ENERGY PROJECT ENGINEER Unavailable Unavailable Bessemer, Clair Mateus ENERGY PROJECT ENGINEER Unavailable Unavailable Cheyenne, Clair Mateus ENERGY PROJECT ENGINEER Unavailable Unavailable Bessemer, Clair Mateus ENERGY PROJECT ENGINEER Unavailable Unavailable Bessemer, Clair Mateus ENERGY PROJECT ENGINEER Unavailable Unavailable Bessemer, Clair Mateus ENERGY PROJECT ENGINEER Unavailable Unavailable Bessemer, Clair Mateus ENERGY PROJECT ENGINEER Unavailable Unavailable Bessemer, Clair Mateus ENERGY PROJECT ENGINEER Unavailable Unavailable Cheyenne, Clair Mateus ENERGY PROJECT ENGINEER Unavailable Unavailable Cheyenne, Clair Mateus ENERGY PROJECT ENGINEER Unavailable Unavailable ALYSARAYSHAWN Unavailable Unavailable Re-disclosure Warning The records that you are about to access may contain information from federally-assisted alcohol or drug abuse programs. If such information is present, then the following federally mandated warning applies: This information has been disclosed to you from records protected by federal confidentiality rules (42 CFR part 2). The federal rules prohibit you from making any further disclosure of this information unless further disclosure is expressly permitted by the written consent of the person to whom it pertains or as otherwise permitted by 42 CFR part 2. A general authorization for the release of medical or other information is NOT sufficient for this purpose. The Federal rules restrict any use of the information to criminally investigate or prosecute any alcohol or drug abuse patient.The records that you are about to access may contain highly sensitive health information, the redisclosure of which is protected by Article 27-F of the [facility] Public Health law. If you continue you may have access to information: Regarding HIV / AIDS; Provided by facilities licensed or operated by the [facility] Office of Mental Health; or Provided by the [facility] Office for People With Developmental Disabilities. If such information is present, then the following [facility] mandated warning applies: This information has been disclosed to you from confidential records which are protected by state law. State law prohibits you from making any further disclosure of this information without the specific written consent of the person to whom it pertains, or as otherwise permitted by law. Any unauthorized further disclosure in violation of state law may result in a fine or mcfp sentence or both. A general authorization for the release of medical or other information is NOT sufficient authorization for further disc losure. Allergies and Adverse Reactions Type Description Substance Reaction Status Data Source(s ) Propensity to adverse reactions NO KNOWN ALLERGIES NO KNOWN ALLERGIES [facility] Family History Family Member Name Family Member Gender Family Member Status Date o f Status Description Data Source(s) Unknown Unknown Problem MEDENT ([facility]) mgm Encounters Encounter Providers Location Date Indications Data Source(s ) Outpatient 05/13/2021 03:30:54 PM EDT - 021 03:58:29 PM EDT DocuTap ([facility]) Unknown [address] [facility] [id number] 05/10/2021 12:00:00 AM EDT eCW1 ([facility]) Outpatient [facility] 05/03/2021 12:00:00 AM EDT eCW1 ([facility]) Outpatient [facility] 05/01/2021 12:00:00 AM EDT eCW1 ([facility]) Vance Noonan MD: [id number] [address], [place] [address], Ph. Attender: Vance JOHNSTON - [facility] - Main Office 04/30/2021 12:00:00 AM EDT KENYA ([facility]) Outpatient [facility] 04/18/2021 12:00:00 AM EDT eCW1 ([facility]) Outpatient [facility] 04/17/2021 12:00:00 AM EDT eCW1 ([facility]) Outpatient Attender: Mainor Regalado 04/13/2021 10:15:[address] [facility] Admission cancelled. Disregard status an d admitted date. Outpatient [facility] 03/29/2021 12:00:00 AM EDT eCW1 ([facility]) Outpatient [facility] 03/23/2021 12:00:00 AM EDT eCW1 ([facility]) Emergency Attender: PATTI Cortéser: Joan Reyes PA-C EMERGENCY ROOM-ER 03/22/2021 01:04:00 PM EDT - 03/22/2021 02:52:[address] [facility] Patient discharged. Outpatient [facility] 03/22/2021 12:00:00 AM EDT eCW1 ([facility]) Outpatient Attender: Mateus MARTIN 03/16/2021 02:33:[address] [facility] Outpatient Attender: Mainor Regalado 03/16/2021 11:51:[address] [facility] Outpatient [facility] 03/16/2021 12:00:00 AM EDT eC1 ([facility]) Outpatient Attender: Mainor Regalado 03/09/2021 11:54:[address] [facility] Outpatient Attender: Mainor Regalado 03/01/2021 12:10:[address] [facility] Outpatient Attender: Mainor Regalado 02/22/2021 10:34:[address] [facility] Outpatient Attender: Mainor Regalado 02/15/2021 02:05:[address] [facility] Outpatient Attender: Mainor Regalado 02/08/2021 02:12:[address] [facility] Outpatient Attender: Mainor Regalado 02/01/2021 02:18:[address] [facility] Outpatient Attender: Mainor Regalado 01/18/2021 05:39:[address] [facility] Outpatient Attender: Mainor Regalado 01/04/2021 01:54:[address] [facility] Outpatient Attender: Mainor Regalado 12/28/2020 03:00:[address] [facility] Outpatient Attender: Mainor Regalado 12/21/2020 04:03:[address] [facility] Outpatient Attender: Mainor Regalado 12/07/2020 03:00:[address] [facility] Outpatient Attender: Mainor RegaladoAttender: MAINOR REGALADO 11/30/2020 04:00:[address] [facility] Outpatient Attender: Nani BOTELLOPManny 11/23/2020 03:11:[address] [facility] Outpatient Attender: MAINOR REGALADO 11/23/2020 02:12:[address] [facility] Outpatient [facility] 11/23/2020 12:00:00 AM EDT eCW1 ([facility]) Outpatient Attender: MAINOR REGALADO 11/16/2020 03:09:[address] [facility] Outpatient Attender: MAINOR REGALADO 11/09/2020 01:51:[address] [facility] Outpatient Attender: NANCY LOW 10/18/2020 02:00:00 PM [facility] Outpatient [facility] 10/17/2020 12:00:00 AM EST eCW1 ([facility]) Outpatient Attender: ADITI CORTES NP 10/03/2020 04: 00:00 PM [facility] (PN Proc 45) Pain Procedure 45 [address] [place] [address] 09/04/2020 12:00:00 AM EST eCW1 ([facility]) Unknown [address] [facility] [place] [address] 09/01/2020 12:00:00 AM EST eCW1 ([facility]) Outpatient Attender: ADITI CORTES NP 08/22/2020 01: 00:00 PM [facility] Outpatient [address] [facility] [address] 08/09/2020 12:00:00 AM EST eCW1 ([facility]) Outpatient Attender: NANCY LOW 07/25/2020 01:00:00 PM [facility] Outpatient [address] [facility] [address] 07/10/2020 12:00:00 AM EST eCW1 ([facility]) Outpatient Attender: NANCY LOW 06/20/2020 01:00:00 PM [facility] Outpatient Attender: EBONY LOMELIeferrer: BENNY MILLS [id number] 06/01/2020 12:00:00 AM EDT - 06/01/2020 07:44:23 AM EDT Concussion with loss of consciousness of 30 minutes or less, initial encounter [facility] Concussion with loss of consciousness of 30 minutes or less, initial encounter Outpatient Attender: NANCY LOW 05/30/2020 04:00:[address] [facility] Outpatient Attender: NANCY LOW 05/24/2020 04:00:[address] [facility] Outpatient Attender: NANCY LOW 05/10/2020 10:00:[address] [facility] Outpatient Attender: Keely Reyes PA-C 05/05/2020 02:57 :[address] [facility] Outpatient [facility] 05/05/2020 12:00:00 AM EDT [facility] ([facility]) Outpatient [facility] 05/05/2020 12:00:00 AM EDT [facility] ([facility]) Outpatient Attender: MAINOR REGALADO 05/04/2020 01:49:[address] [facility] Outpatient Attender: BENNY ORTIZ PA-C 05/01/2020 08:46:[address] [facility] Outpatient Attender: AURELIANO HAMLIN 04/30/2020 09:30:[address] [facility] Outpatient Attender: MAINOR REGALADO 04/24/2020 01:50:[address] [facility] Outpatient Attender: MAINOR REGALADO 04/21/2020 03:00:[address] [facility] Outpatient Attender: Richard REYESant: GABE DIXON 04/05/2020 12:30:00 PM [facility] Outpatient Attender: MAINOR REGALADO 04/03/2020 01:53:[address] [facility] Outpatient Attender: MAINOR REGALADO 03/27/2020 01:55:[address] [facility] Outpatient Attender: MAINOR REGALADO 03/20/2020 02:00:[address] [facility] Outpatient Attender: MAINOR REGALADO 03/13/2020 01:53:[address] [facility] Outpatient Attender: Keely Reyes PA-C 03/08/2020 12:48 :[address] [facility] Outpatient Attender: MAINOR REGALADO 03/06/2020 02:00:[address] [facility] Outpatient Attender: MAINOR REGALADO 02/28/2020 01:00:[address] [facility] Outpatient Attender: BENNY ORTIZ PA-C 02/22/2020 11:00:[address] [facility] Outpatient Attender: LINDA COSTELLO 02/17/2020 01:00:[address] [facility] Outpatient Attender: LINDA COSTELLO 02/10/2020 01:00:[address] [facility] Outpatient Attender: LINDA COSTELLO 02/03/2020 01:00:[address] [facility] Outpatient Attender: LINDA COSTELLO 01/27/2020 01:29:[address] [facility] Outpatient Attender: LINDA COSTELLO 01/20/2020 01:30:[address] [facility] Outpatient Attender: LINDA COSTELLO 01/14/2020 03:00:[address] [facility] Outpatient Attender: Keely Mataferrer: Keely Reyes PA-C EMERGENCY ROOM-LAB 12/06/2019 01:40:00 PM T - 12/06/2019 01:40:[address] [facility] Outpatient Attender: Keely Reyes PA-C 12/06/2019 01:00 :[address] [facility] Outpatient Attender: LIVIA BRITTON 11/29/2019 01:00:00 PM [facility] Emergency Attender: YAKOV FLORES PAReferrer: Keely Reyes PA-C 11/15/2019 08:30:00 PM T - 11/15/2019 09:08:[address] [facility] Patient discharged. Outpatient Attender: Keely Mataferrer: Keely Reyes PA-C EMERGENCY ROOM-LAB REF 11/09/2019 10:32:00 AM EDT - 11/09/2019 10:32:00 AM [facility] Outpatient Attender: Keely Reyes PA-C 11/09/2019 10:00 :[address] [facility] Outpatient Attender: LIVIA BRITTON 11/01/2019 02:00:00 PM [facility] Outpatient Attender: Keely Reyes PA-C 10/11/2019 11:00 :00 AM [facility] [facility] Attender: LIVIA BRITTON 10/04/2019 02:00:00 PM [facility] Outpatient Attender: RAYSHAWN WATT 09/06/2019 02:18:00 PM [facility] Outpatient Attender: RAYHSAWN WATT 08/02/2019 02:17:00 PM [facility] Outpatient Attender: RAYSHAWN WATT 07/05/2019 03:05:00 PM [facility] Outpatient Attender: AURELIANO HAMLIN 06/11/2019 10:58:[address] [facility] Emergency Attender: YAKOV PEREZttender: Mylene STROUD EMERGENCY ROOM-ER 01/07/2019 07:29:00 PM EDT - 01/07/2019 10:02:[address] [facility] Patient discharged. Immunizations Vaccine Date Status Description Data Source(s) COVID-19 VACCINE Moderna 12/13/2020 12:00:00 AM EDT completed [facility] Vaccine Series Complete: YESThis Data wa s Submitted to [facility]. COVID-19 VACCINE Moderna 11/15/2020 12:00:00 AM EDT completed [facility]IS Vaccine Series Complete: NOThis Data was Submitted to [facility]. Medications Medication Brand Name Start Date Product Form Dose Route Admi nistrative Instructions Pharmacy Instructions Status Indications Reaction Description Data Source(s) 20 mg 03/22/2021 12:00:00 AM EDT tablet 12 TAKE THREE TABLETS BY MOUTH EVERY DAY TAKE THREE TABLETS BY MOUTH EVERY DAY SOLD: 03/22/2021 [facility] Fluticasone propionate 0.05 MG/ACTUAT Metered Dose Jaya al [place] 50 mcg/actuation FLUTICASONE PROPIONATE 03/17/2021 12:00:00 AM EDT spray,suspension 16 SPRAY ONE SPRAY IN ONE NOSTRIL EVERY DAY SPRAY ONE SPRAY IN ONE NOSTRIL EVERY DAY SOLD: 03/22/2021 [facility] 10 mg 03/17/2021 12:00:00 AM EDT tablet 30 TAKE ONE TABLET BY MOUTH EVERY DAY TAKE ONE TABLET BY MOUTH EVERY DAY SOLD: 03/22/2021 [facility] cetirizine hydrochloride 10 MG Oral Tablet Cetirizine HCl 10 MG Cetirizine HCl 10 MG 03/16/2021 12:00:00 AM EDT 1.0 {tablet} activ e Cetirizine HCl 10 MG eCW1 ([facility] ronnie) Flonase Allergy Relief 50 MCG/ACT Flonase Allergy Relief 50 MCG/ACT 03/16/2021 12:00:00 AM EDT 1.0 {spray_in_each_nostril} acti ve Flonase Allergy Relief 50 MCG/ACT eCW1 ([facility] ronnie) cetirizine hydrochloride 10 MG Oral Tablet Cetirizine HCl 10 MG Cetirizine HCl 10 MG 03/16/2021 12:00:00 AM EDT 1.0 {tablet} activ e Cetirizine HCl 10 MG eCW1 ([facility] ronnie) Flonase Allergy Relief 50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 AM EDT Former Smoker completed Former Smoker eCW1 ([facility]) Smoking 11/23/2020 12:00:00 AM EDT Former Smoker completed Former Smoker eCW1 ([facility]) Smoking 09/01/2020 12:00:00 AM EST Current Smoker completed Curre nt Smoker eCW1 ([facility]) Smoking 09/01/2020 12:00:00 AM EST Current Smoker completed Curre nt Smoker eCW1 ([facility]) Smoking 09/01/2020 12:00:00 AM EST Current Smoker completed Curre nt Smoker eCW1 ([facility]) Smoking 08/09/2020 12:00:00 AM EST Current Smoker completed Curre nt Smoker eCW1 ([facility]) Smoking 07/10/2020 12:00:00 AM EST Current Smoker completed Curre nt Smoker eCW1 ([facility]) Smoking 05/05/2020 12:00:00 AM EDT Current Smoker completed Curre nt Smoker eCW1 ([facility]) Smoking 05/05/2020 12:00:00 AM EDT Current Smoker completed Curre nt Smoker eCW1 ([facility]) Smoking 05/05/2020 12:00:00 AM EDT Current Smoker completed Curre nt Smoker eCW1 ([facility]) Vital Signs ID Date Data Source UNK Name Value Range Interpretation Code Description Data Source(s) Body height 66 [in_i] 66 [in_i] KENYA ([facility]) Diastolic blood pressure 73 mm[Hg] 73 mm[Hg] KENYA ([facility]) Body mass index (BMI) [Ratio] 28.5 kg/m2 28.5 k g/m2 KENYA ([facility]) Systolic blood pressure 119 mm[Hg] 119 mm[Hg] A THENA ([facility]) Body weight 176.8 [lb_av] 176.8 [lb_av] KENYA ([facility]) Body height 65 [in_i] 65 [in_i] eCW1 ([facility]) Body temperature 98.0 [degF] 98.0 [degF] eCW1 ( [facility]) Heart rate 73 /min 73 /min eCW1 ([facility]) Respiratory rate 18 /min 18 /min eCW1 ([facility]) Oxygen saturation in Arterial blood by Pulse oximetry 99 % 99 % eCW1 ([facility]) Body height 65 [in_i] 65 [in_i] eCW1 ([facility]) Body weight 180 [lb_av] 180 [lb_av] eCW1 ([facility]) Body mass index (BMI) [Ratio] 29.95 kg/m2 29.95 kg/m2 eCW1 ([facility]) Body temperature 97.5 [degF] 97.5 [degF] eCW1 ( [facility]) Heart rate 59 /min 59 /min eCW1 ([facility]) Respiratory rate 16 /min 16 /min eCW1 ([facility]) Oxygen saturation in Arterial blood by Pulse oximetry 99 % 99 % eCW1 ([facility]) Body weight 187.6 [lb_av] 187.6 [lb_av] eCW1 ([facility]) Body height 65 [in_i] 65 [in_i] eCW1 ([facility]) Body mass index (BMI) [Ratio] 31.21 kg/m2 31.21 kg/m2 eCW1 ([facility]) Heart rate 75 /min 75 /min eCW1 ([facility]) Respiratory rate 18 /min 18 /min eCW1 ([facility]) Body temperature 97.5 [degF] 97.5 [degF] eCW1 ( [facility]) Systolic blood pressure 116 mm[Hg] 116 mm[Hg] e CW1 ([facility]) Diastolic blood pressure 57 mm[Hg] 57 mm[Hg] eCW1 ([facility]) Body weight 185.2 [lb_av] 185.2 [lb_av] eCW1 ([facility]) Body height 65 [in_i] 65 [in_i] eCW1 ([facility]) Body mass index (BMI) [Ratio] 30.82 kg/m2 30.82 kg/m2 eCW1 ([facility]) Heart rate 77 /min 77 /min eCW1 ([facility]) Respiratory rate 18 /min 18 /min eCW1 ([facility]) Body temperature 98.1 [degF] 98.1 [degF] eCW1 ( [facility]) Systolic blood pressure 112 mm[Hg] 112 mm[Hg] e CW1 ([facility]) Diastolic blood pressure 56 mm[Hg] 56 mm[Hg] eCW1 ([facility]) Body weight 182.2 [lb_av] 182.2 [lb_av] eCW1 ([facility]) Body height 65 [in_i] 65 [in_i] eCW1 ([facility]) Body mass index (BMI) [Ratio] 30.32 kg/m2 30.32 kg/m2 eCW1 ([facility]) Heart rate 87 /min 87 /min eCW1 ([facility]) Respiratory rate 18 /min 18 /min eCW1 ([facility]) Body temperature 98.2 [degF] 98.2 [degF] eCW1 ( [facility]) Systolic blood pressure 115 mm[Hg] 115 mm[Hg] e CW1 ([facility]) Diastolic blood pressure 54 mm[Hg] 54 mm[Hg] eCW1 ([facility]) Respiratory rate 18 /min 18 /min eCW1 ([facility]) Body height 65 [in_i] 65 [in_i] eCW1 ([facility]) Body weight 181.0 [lb_av] 181.0 [lb_av] eCW1 ([facility]) Body mass index (BMI) [Ratio] 30.12 kg/m2 30.12 kg/m2 eCW1 ([facility]) Body temperature 98.6 [degF] 98.6 [degF] eCW1 ( [facility]) Heart rate 86 /min 86 /min eCW1 ([facility]) Oxygen saturation in Arterial blood by Pulse oximetry 99 % 99 % eCW1 ([facility]) Patient Treatment Plan of Care Planned Activity Planned Date Details Description Data Source (s) Flonase Allergy Relief 50 MCG/ACT 03/16/2021 12:00:00 AM EDT eCW1 ([facility]) cetirizine hydrochloride 10 MG Oral Tablet 03/16/2021 12:00:00 AM E DT eCW1 ([facility]) Flonase Allergy Relief 50 MCG/ACT 03/16/2021 12:00:00 AM EDT eCW1 ([facility]) cetirizine hydrochloride 10 MG Oral Tablet 03/16/2021 12:00:00 AM E DT eCW1 ([facility]) Flonase Allergy Relief 50 MCG/ACT 03/16/2021 12:00:00 AM EDT eCW1 ([facility]) cetirizine hydrochloride 10 MG Oral Tablet 03/16/2021 12:00:00 AM E DT eCW1 ([facility]) Flonase Allergy Relief 50 MCG/ACT 03/16/2021 12:00:00 AM EDT eCW1 ([facility]) cetirizine hydrochloride 10 MG Oral Tablet 03/16/2021 12:00:00 AM E DT eCW1 ([facility]) Prednisone 20 MG Oral Tablet KENYA ([facility]) fluticasone propionate 50 mcg/actuation nasal spray,suspension SPRAY ONE SPRAY IN ONE NOSTRIL EVERY DAY KENYA ([facility]) Escitalopram 20 MG Oral Tablet KENYA ([facility]) Escitalopram 10 MG Oral Tablet KENYA ([facility]) Clonidine Hydrochloride 0.2 MG Oral Tablet KENYA ([facility]) cetirizine hydrochloride 10 MG Oral Tablet KENYA ([facility])
--- NOTE | 2021-05-28 10:19 | REP ---
INDICATION: trauma COMPARISON: None. TECHNIQUE: Four views right 1st digit. FINDINGS: There is no evidence of acute fracture, dislocation, or intrinsic bone disease. IMPRESSION: No fracture or dislocation. <Electronically signed by Doni Laughlin > 05/28/21 [id number]
--- OUTSIDE RECORDS SUMMARY | 2021-05-28 11:22 | CCD ---
Author Author [facility] Address Unknown Phone Unavailable Support Name Relationship Address Phone French Girls Next Of Kin [phone] [facility] [address] [place] [address] [employer] (M[employer] Next Of Kin [address] [facility] [address] [place] [address] CHERYL VILLEDA Next Of Kin [address] [facility] [address] [place] [address] ALIYA VILLEDA Next Of Kin [address] [facility] [address] [place] [address] OTHEMP Next Of Kin Unknown Unavailable CHERYL ALLAN Next Of Kin [id number] [address] JEFFCOCHIL Next Of Kin [address] [facility] [address] [place] [address] JR* [place] [address] UE Next Of Kin Unknown Unavailable Vaibhav VILLEDA Next Of Kin [address] [place] [address] STREAM Next Of Kin [address] [place] [address] TIMELESS Next Of Kin [address] [place] [phone] [employer] ([employer]CDONALDS) Next Of Kin [address] [facility] [address] [place] [address] LIBBY HARRELL Next Of Kin [address] [facility] [address] [place] [address] LIBBY [address] [address] [place] [address] Unavailable Cheryl Villeda ECON [id number] [place] [address] Unavailable Care Team Providers Care Sander Setter Name Role Phone BARTOSZEK, A EBONY PA Unavailable Unavailable BARTOSZEK, A EBONY PA Unavailable Unavailable BRITTON, LIVIA Unavailable Unavailable Amy, M Ivis PA-C Unavailable Unavailable Amy, M Ivis PA-C Unavailable Unavailable Amy, M Ivis PA-C Unavailable Unavailable Amy, M Ivis PA-C Unavailable Unavailable Amy, M Ivis PA-C Unavailable Unavailable Amy, M Ivis PA-C Unavailable Unavailable Amy, M Ivis PA-C Unavailable Unavailable Amy, M Ivis PA-C Unavailable Unavailable Amy, M Ivis PA-C Unavailable Unavailable Amy, M Ivis PA-C Unavailable Unavailable Amy, M Ivis PA-C Unavailable Unavailable Amy, M Ivis PA-C Unavailable Unavailable Amy, M Ivis PA-C Unavailable Unavailable Amy, M Ivis PA-C Unavailable Unavailable Amy, M Ivis PA-C Unavailable Unavailable Amy, M Ivis PA-C Unavailable Unavailable Amy, M Ivis PA-C Unavailable Unavailable Amy, M Ivis PA-C Unavailable Unavailable Amy, M Ivis PA-C Unavailable Unavailable Amy, M Ivis PA-C Unavailable Unavailable Amy, M Ivis PA-C Unavailable Unavailable Amy, M Ivis PA-C Unavailable Unavailable Amy, M Ivis PA-C Unavailable Unavailable Amy, M Ivis PA-C Unavailable Unavailable Amy, M Ivis PA-C Unavailable Unavailable Amy, M Ivis PA-C Unavailable Unavailable Amy, M Ivis PA-C Unavailable Unavailable Amy, M Ivis PA-C Unavailable Unavailable Aym, M Ivis PA-C Unavailable Unavailable Amy, M Ivis PA-C Unavailable Unavailable Amy, M Ivis PA-C Unavailable Unavailable Amy, M Ivis PA-C Unavailable Unavailable Amy, M Ivis PA-C Unavailable Unavailable Amy, M Ivis PA-C Unavailable Unavailable Amy, M Ivis PA-C Unavailable Unavailable ROMERO, GABE Unavailable Unavailable [...] Unavailable REGALADO, MAINOR Unavailable Unavailable DESJARLAIS, ADITI QUALITY ASSURANCE SUPERVISOR FINAL Unavailable Unavailable DESJARLAIS, ADITI QUALITY ASSURANCE SUPERVISOR FINAL Unavailable Unavailable DESJARLAIS, ADITI QUALITY ASSURANCE SUPERVISOR FINAL Unavailable Unavailable DESJARLAIS, ADITI QUALITY ASSURANCE SUPERVISOR FINAL Unavailable Unavailable DESJARLAIS, ADITI QUALITY ASSURANCE SUPERVISOR FINAL Unavailable Unavailable DESJARLAIS, ADITI QUALITY ASSURANCE SUPERVISOR FINAL Unavailable Unavailable DESJARLAIS, ADITI QUALITY ASSURANCE SUPERVISOR FINAL Unavailable Unavailable DESJARLAIS, ADITI QUALITY ASSURANCE SUPERVISOR FINAL Unavailable Unavailable DESJARLAIS, ADITI QUALITY ASSURANCE SUPERVISOR FINAL Unavailable Unavailable AURELIANO HAMLIN Unavailable Unavailable ISIS LANG[place], Unavailable Unavailable NANCY LOW Unavailable Unavailable MARK, ANSELMO YAKOV PA Unavailable [...] Unavailable MARK, ANSELMO YAKOV PA Unavailable Unavailable BolFabiola drummond MD Unavailable Unavailable [...] Unavailable Unavailable Fabiola Noonan MD Unavailable Unavailable Fabioal Noonan MD Unavailable Unavailable Fabiola Noonan MD [...] Unavailable Unavailable Fabiola Noonan MD Unavailable Unavailable Bolla, S Vance COX [...] COX Unavailable Unavailable Carol, Reginah W Nani POLYMERIZATION SUPERVISOR-C Unavailable Unavailabl e Carol, Reginah W Nani POLYMERIZATION SUPERVISOR-C Unavailable Unavailabl e Carol, Reginah W Nani POLYMERIZATION SUPERVISOR-C Unavailable Unavailabl e Carol, Reginah W Nani POLYMERIZATION SUPERVISOR-C Unavailable Unavailabl e Carol, Reginah W Nani POLYMERIZATION SUPERVISOR-C Unavailable Unavailabl e Carol, Reginah W Nani POLYMERIZATION SUPERVISOR-C Unavailable Unavailabl e Carol, Reginah W Nani POLYMERIZATION SUPERVISOR-C Unavailable Unavailabl e Carol, Reginah W Nani POLYMERIZATION SUPERVISOR-C Unavailable Unavailabl e Carol, Reginah W Nani POLYMERIZATION SUPERVISOR-C Unavailable Unavailabl e Carol, Reginah W Nani POLYMERIZATION SUPERVISOR-C Unavailable Unavailabl e Carol, Reginah W Nani POLYMERIZATION SUPERVISOR-C Unavailable Unavailabl e Carol, Reginah W Nani POLYMERIZATION SUPERVISOR-C Unavailable Unavailabl e Carol, Reginah W Nani POLYMERIZATION SUPERVISOR-C Unavailable Unavailabl e Carol, Reginah W Nani POLYMERIZATION SUPERVISOR-C Unavailable Unavailabl e Carol, Reginah W Nani POLYMERIZATION SUPERVISOR-C Unavailable Unavailabl e Carol, Reginah W Nani POLYMERIZATION SUPERVISOR-C Unavailable Unavailabl e Carol, Reginah W Nani POLYMERIZATION SUPERVISOR-C Unavailable Unavailabl e Carol, Reginah W Nani POLYMERIZATION SUPERVISOR-C Unavailable Unavailabl e Carol, Reginah W Nani POLYMERIZATION SUPERVISOR-C Unavailable Unavailabl e Carol, Reginah W Nani POLYMERIZATION SUPERVISOR-C Unavailable Unavailabl e Carol, Reginah W Nani POLYMERIZATION SUPERVISOR-C Unavailable Unavailabl e Carol, Steffi Barahonae POLYMERIZATION SUPERVISOR-C Unavailable Unavailabl e Carol, Steffi Baraohnae POLYMERIZATION SUPERVISOR-C Unavailable Unavailabl e Carol, Steffi Cardoza POLYMERIZATION SUPERVISOR-C Unavailable Unavailabl e Carol, Steffi Cardoza POLYMERIZATION SUPERVISOR-C Unavailable Unavailabl e Carol, Steffi Cardoza POLYMERIZATION SUPERVISOR-C Unavailable Unavailabl e Carol, Steffi Bernardoyce POLYMERIZATION SUPERVISOR-C Unavailable Unavailabl e Carol, Steffi Bernardoyce POLYMERIZATION SUPERVISOR-C Unavailable Unavailabl e Carol, Steffi Bernardoyce POLYMERIZATION SUPERVISOR-C Unavailable Unavailabl e Carol, Steffi Bernardoyce POLYMERIZATION SUPERVISOR-C Unavailable Unavailabl e Carol, Steffi Bernardoyce POLYMERIZATION SUPERVISOR-C Unavailable Unavailabl e Carol, Steffi Bernardoyce POLYMERIZATION SUPERVISOR-C Unavailable Unavailabl e Mindy ORTIZ Unavailable Unavailable [...] Unavailable DIANA, ISHAN BENNY PA-C Unavailable Unavailable [place], Clair Mateus POLYMERIZATION SUPERVISOR Unavailable Unavailable [place], Clair Mateus POLYMERIZATION SUPERVISOR Unavailable Unavailable [place], Clair Mateus POLYMERIZATION SUPERVISOR Unavailable Unavailable [place], Clair Mateus POLYMERIZATION SUPERVISOR Unavailable Unavailable [place], Clair Mateus POLYMERIZATION SUPERVISOR Unavailable Unavailable [place], Clair Mateus POLYMERIZATION SUPERVISOR Unavailable Unavailable [place], Clair Mateus POLYMERIZATION SUPERVISOR Unavailable Unavailable [place], Clair Mateus POLYMERIZATION SUPERVISOR Unavailable Unavailable [place], Clair Mateus POLYMERIZATION SUPERVISOR Unavailable Unavailable [place], Clair Mateus POLYMERIZATION SUPERVISOR Unavailable Unavailable [place], Clair Mateus POLYMERIZATION SUPERVISOR Unavailable Unavailable [place], Clair Mateus POLYMERIZATION SUPERVISOR Unavailable Unavailable [place], Clair Mateus POLYMERIZATION SUPERVISOR Unavailable Unavailable [place], Clair Mateus POLYMERIZATION SUPERVISOR Unavailable Unavailable ALYSARAYSHAWN Unavailable Unavailable Re-disclosure Warning [...] is protected by Article 27-F of the [facility] Public Health law. If you continue you may have access to information: Regarding HIV / AIDS; Provided by facilities licensed or operated by the [facility] Office of Mental Health; or Provided by the [place] State Office for People With Developmental Disabilities. If such information is present, then the following [facility] mandated warning applies: This information has [...] law may result in a fine or care home sentence or both. A general authorization for the release of medical or other information is NOT sufficient authorization for further disc losure. Allergies and Adverse Reactions Type Description Substance Reaction Status Data Source(s ) Propensity to adverse reactions NO KNOWN ALLERGIES NO KNOWN ALLERGIES [facility] Family History Family Member Name Family Member Gender Family Member Status Date o f Status Description Data Source(s) Unknown Unknown Problem MEDENT ([facility], [facility]) mgm Encounters Encounter Providers Location Date Indications Data Source(s ) Outpatient 05/13/2021 03:30:54 PM EDT - 021 03:58:29 PM EDT [facility] ([facility]) Unknown [address] [facility] [id number] 05/10/2021 12:00:00 AM EDT eCW1 ([facility]) Outpatient [facility] 05/03/2021 12:00:00 AM EDT eCW1 ([facility]) Outpatient [facility] 05/01/2021 12:00:00 AM EDT eCW1 ([facility]) Vance Noonan MD: [id number] [address], [place] [address], Ph. Attender: Vance JOHNSTON - [facility] - Main Office 04/30/2021 12:00:00 AM EDT KENYA ([facility]) Outpatient [facility] 04/18/2021 12:00:00 AM EDT eCW1 ([facility]) Outpatient [facility] 04/17/2021 12:00:00 AM EDT eCW1 ([facility]) Outpatient Attender: Mainor Regalado 04/13/2021 10:15:00 AM [facility] Admission cancelled. Disregard status an d admitted date. Outpatient [facility] 03/29/2021 12:00:00 AM EDT eCW1 ([facility]) Outpatient [facility] 03/23/2021 12:00:00 AM EDT eCW1 ([facility]) Emergency Attender: PATTI Cortéser: Joan Reyes PA-C EMERGENCY ROOM-ER 03/22/2021 01:04:00 PM EDT - 03/22/2021 02:52:00 PM [facility] Patient discharged. Outpatient [facility] 03/22/2021 12:00:00 AM EDT eCW1 ([facility]) Outpatient Attender: Mateus MARTIN 03/16/2021 02:33:00 PM [facility] Outpatient Attender: Mainor Regalado 03/16/2021 11:51:00 AM [facility] Outpatient [facility] 03/16/2021 12:00:00 AM EDT eCW1 ([facility]) Outpatient Attender: Mainor Regalaod 03/09/2021 11:54:00 AM [facility] Outpatient Attender: Mainor Regalado 03/01/2021 12:10:00 PM [facility] Outpatient Attender: Mainor Regalado 02/22/2021 10:34:00 AM [facility] Outpatient Attender: Mainor Regalado 02/15/2021 02:05:00 PM [facility] Outpatient Attender: Mainor Regalado 02/08/2021 02:12:00 PM [facility] Outpatient Attender: Mainor Regalado 02/01/2021 02:18:00 PM [facility] Outpatient Attender: Mainor Regalado 01/18/2021 05:39:00 PM [facility] Outpatient Attender: Mainor Regalado 01/04/2021 01:54:00 PM [facility] Outpatient Attender: Mainor Regalado 12/28/2020 03:00:00 PM [facility] Outpatient Attender: Mainor Regalado 12/21/2020 04:03:00 PM [facility] Outpatient Attender: Mainor Regalado 12/07/2020 03:00:00 PM [facility] Outpatient Attender: Mainor RegaladoAttender: MAINOR REGALADO 11/30/2020 04:00:00 PM [facility] Outpatient Attender: Nani BOTELLOP-Raji 11/23/2020 03:11:0 0 PM [facility] Outpatient Attender: MAINOR REGALADO 11/23/2020 02:12:00 PM [facility] Outpatient [facility] 11/23/2020 12:00:00 AM EDT eCW1 ([facility]) Outpatient Attender: MAINOR REGALADO 11/16/2020 03:09:00 PM [facility] Outpatient Attender: MAINOR REGALADO 11/09/2020 01:51:00 PM [facility] Outpatient Attender: NANCY LOW 10/18/2020 02:00:00 PM [facility] Outpatient [facility] 10/17/2020 12:00:00 AM EST eCW1 ([facility]) Outpatient Attender: ADITI CORTES NP 10/03/2020 04: 00:00 PM [facility] (PN Proc 45) Pain Procedure 45 [address] [place] [address] 09/04/2020 12:00:00 AM EST eCW1 ([facility]) [place] [address] [facility] [address] 09/01/2020 12:00:00 AM EST eCW1 ([facility]) Outpatient Attender: ADITI CORTES NP 08/22/2020 01: 00:00 PM [facility] Outpatient [address] [facility] [address] 08/09/2020 12:00:00 AM EST eCW1 ([facility]) Outpatient Attender: NANCY LOW 07/25/2020 01:00:00 PM [facility] Outpatient [address] [facility] [address] 07/10/2020 12:00:00 AM EST eCW1 ([facility]) Outpatient Attender: NANCY LOW 06/20/2020 01:00:00 PM [facility] Outpatient Attender: EBONY Cuadraerrer: BENNY MILLS [id number] 06/01/2020 12:00:00 AM EDT - 06/01/2020 07:44:23 AM EDT Concussion with loss of consciousness of 30 minutes or less, initial encounter [facility] Concussion with loss of consciousness of 30 minutes or less, initial encounter Outpatient Attender: NANCY LOW 05/30/2020 04:00:00 PM [facility] Outpatient Attender: NANCY LOW 05/24/2020 04:00:00 PM [facility] Outpatient Attender: NANCY LOW 05/10/2020 10:00:00 AM [facility] Outpatient Attender: Ivis Reyes PA-C 05/05/2020 02:57 :00 PM [facility] Outpatient [facility] 05/05/2020 12:00:00 AM EDT [facility] ([facility]) Outpatient [facility] 05/05/2020 12:00:00 AM EDT [facility] ([facility]) Outpatient Attender: MAINOR REGALADO 05/04/2020 01:49:00 PM [facility] Outpatient Attender: BENNY ORTIZ PA-C 05/01/2020 08:46:00 AM [facility] Outpatient Attender: AURELIANO HAMLIN 04/30/2020 09:30:00 AM [facility] Outpatient Attender: MAINOR REGALADO 04/24/2020 01:50:00 PM [facility] Outpatient Attender: MAINOR REGALADO 04/21/2020 03:00:00 PM [facility] Outpatient Attender: IVIS REYESConjaniceltant: GABE DIXON 04/05/2020 12:30:00 PM [facility] Outpatient Attender: MAINOR REGALADO 04/03/2020 01:53:00 PM [facility] Outpatient Attender: MAINOR REGALADO 03/27/2020 01:55:00 PM [facility] Outpatient Attender: MAINOR REGALADO 03/20/2020 02:00:00 PM [facility] Outpatient Attender: MAINOR REGALADO 03/13/2020 01:53:00 PM [facility] Outpatient Attender: Ivis Reyes PA-C 03/08/2020 12:48 :00 PM [facility] Outpatient Attender: MAINOR REGALADO 03/06/2020 02:00:00 PM [facility] Outpatient Attender: MAINOR REGALADO 02/28/2020 01:00:00 PM [facility] Outpatient Attender: BENNY ORTIZ PA-C 02/22/2020 11:00:00 AM [facility] Outpatient Attender: LINDA COSTELLO 02/17/2020 01:00:00 PM [facility] Outpatient Attender: LINDA COSTELLO 02/10/2020 01:00:00 PM [facility] Outpatient Attender: LINDA COSTELLO 02/03/2020 01:00:00 PM [facility] Outpatient Attender: LINDA COSTELLO 01/27/2020 01:29:00 PM [facility] Outpatient Attender: LINDA COSTELLO 01/20/2020 01:30:00 PM [facility] Outpatient Attender: LINDA COSTELLO 01/14/2020 03:00:00 PM [facility] Outpatient Attender: Ivis Mataferrer: Ivis Reyes PA-C EMERGENCY ROOM-LAB 12/06/2019 01:40:00 PM T - 12/06/2019 01:40:00 PM [facility] Outpatient Attender: Ivis Reyes PA-C 12/06/2019 01:00 :00 PM [facility] Outpatient Attender: LIVIA BRITTON 11/29/2019 01:00:[address] [facility] Emergency Attender: YAKOV FLORES PAReferrer: Ivis Reyes PA-C 11/15/2019 08:30:00 PM T - 11/15/2019 09:08:00 PM [facility] Patient discharged. Outpatient Attender: Ivis Mataferrer: Ivis Reyes PA-C EMERGENCY ROOM-LAB REF 11/09/2019 10:32:00 AM EDT - 11/09/2019 10:32:[address] [facility] Outpatient Attender: Ivis Reyes PA-C 11/09/2019 10:00 :00 AM [facility] Outpatient Attender: LIVIA BRITTON 11/01/2019 02:00:[address] [facility] Outpatient Attender: Ivis Reyes PA-C 10/11/2019 11:00 :00 AM [facility] Outpatient Attender: LIVIA BRITTON 10/04/2019 02:00:00 PM [facility] Outpatient Attender: RAYSHAWN WATT 09/06/2019 02:18:00 PM [facility] Outpatient Attender: RAYSHAWN WATT 08/02/2019 02:17:00 PM [facility] Outpatient Attender: RAYSHAWN WATT 07/05/2019 03:05:00 PM [facility] Outpatient Attender: AURELIANO HAMLIN 06/11/2019 10:58:00 AM [facility] Emergency Attender: YAKOV PEREZttender: Mylene STROUD EMERGENCY ROOM-ER 01/07/2019 07:29:00 PM EDT - 01/07/2019 10:02:00 PM [facility] Patient discharged. Immunizations Vaccine Date Status Description Data Source(s) COVID-19 VACCINE Moderna 12/13/2020 12:00:00 AM EDT completed [facility] Vaccine Series Complete: YESThis Data wa s Submitted to [facility] [employer]. COVID-19 VACCINE Moderna 11/15/2020 12:00:00 AM EDT completed [place] Vaccine Series Complete: NOThis Data was Submitted to [facility] [employer]. Medications Medication Brand Name Start Date Product Form Dose Route Admi nistrative Instructions Pharmacy Instructions Status Indications Reaction Description Data Source(s) 20 mg 03/22/2021 12:00:00 AM EDT tablet 12 TAKE THREE TABLETS BY MOUTH EVERY DAY TAKE THREE TABLETS BY MOUTH EVERY DAY SOLD: 03/22/2021 [facility] Fluticasone propionate 0.05 MG/ACTUAT Metered Dose Jaya al [place] 50 mcg/actuation FLUTICASONE PROPIONATE 03/17/2021 12:00:00 AM [...] activ e Cetirizine HCl 10 MG eCW1 ([facility] ronnie) Flonase Allergy Relief 50 MCG/ACT Flonase Allergy Relief 50 MCG/ACT 03/16/2021 12:00:00 AM EDT 1.0 {spray_in_each_nostril} acti ve Flonase Allergy Relief 50 MCG/ACT eCW1 ([facility] ronnie) cetirizine hydrochloride 10 MG Oral Tablet Cetirizine HCl 10 MG Cetirizine HCl 10 MG 03/16/2021 12:00:00 AM EDT 1.0 {tablet} activ e Cetirizine HCl 10 MG eCW1 ([facility] ronnie) Flonase Allergy Relief 50 MCG/ACT Flonase Allergy Relief 50 MCG/ACT 03/16/2021 12:00:00 AM EDT 1.0 {spray_in_each_nostril} acti ve Flonase Allergy Relief 50 MCG/ACT eCW1 ([facility] ronnie) Flonase Allergy Relief 50 MCG/ACT Flonase Allergy Relief 50 MCG/ACT 03/16/2021 12:00:00 AM EDT 1.0 {spray_in_each_nostril} acti ve Flonase Allergy Relief 50 MCG/ACT eCW1 ([facility] ronnie) cetirizine hydrochloride 10 MG Oral Tablet Cetirizine HCl 10 MG Cetirizine HCl 10 MG 03/16/2021 12:00:00 AM EDT 1.0 {tablet} activ e Cetirizine HCl 10 MG eCW1 ([facility] ronnie) cetirizine hydrochloride 10 MG Oral Tablet Cetirizine HCl 10 MG Cetirizine HCl 10 MG 03/16/2021 12:00:00 AM EDT 1.0 {tablet} activ e Cetirizine HCl 10 MG eCW1 ([facility] ronnie) cetirizine hydrochloride 10 MG Oral Tablet Cetirizine HCl 10 MG Cetirizine HCl 10 MG 03/16/2021 12:00:00 AM EDT 1.0 {tablet} activ e Cetirizine HCl 10 MG eCW1 ([facility] ronnie) Flonase Allergy Relief 50 MCG/ACT Flonase Allergy Relief 50 MCG/ACT 03/16/2021 12:00:00 AM EDT 1.0 {spray_in_each_nostril} acti ve Flonase Allergy Relief 50 MCG/ACT eCW1 ([facility] ronnie) cetirizine hydrochloride 10 MG Oral Tablet Cetirizine HCl 10 MG Cetirizine HCl 10 MG 03/16/2021 12:00:00 AM EDT 1.0 {tablet} activ e Cetirizine HCl 10 MG eCW1 ([facility] ronnie) cetirizine hydrochloride 10 MG Oral Tablet Cetirizine HCl 10 MG Cetirizine HCl 10 MG 03/16/2021 12:00:00 AM EDT 1.0 {tablet} activ e Cetirizine HCl 10 MG eCW1 ([facility] ronnie) Flonase Allergy Relief 50 MCG/ACT Flonase Allergy Relief 50 MCG/ACT 03/16/2021 12:00:00 AM EDT 1.0 {spray_in_each_nostril} acti ve Flonase Allergy Relief 50 MCG/ACT eCW1 ([facility] ronnie) Flonase Allergy Relief 50 MCG/ACT Flonase Allergy Relief 50 MCG/ACT 03/16/2021 12:00:00 AM EDT 1.0 {spray_in_each_nostril} acti ve Flonase Allergy Relief 50 MCG/ACT eCW1 ([facility] ronnie) cetirizine hydrochloride 10 MG Oral Tablet Cetirizine HCl 10 MG Cetirizine HCl 10 MG 03/16/2021 12:00:00 AM EDT 1.0 {tablet} activ e Cetirizine HCl 10 MG eCW1 ([facility] ronnie) Flonase Allergy Relief 50 MCG/ACT Flonase Allergy Relief 50 MCG/ACT 03/16/2021 12:00:00 AM EDT 1.0 {spray_in_each_nostril} acti ve Flonase Allergy Relief 50 MCG/ACT eCW1 ([facility] r[facility]nie) Flonase Allergy Relief 50 MCG/ACT Flonase Allergy Relief 50 MCG/ACT 03/16/2021 12:00:00 AM EDT 1.0 {spray_in_each_nostril} acti ve Flonase Allergy Relief 50 MCG/ACT eCW1 ([facility]) Clonidine Hydrochloride 0.2 MG Oral Tablet CLONIDINE HCL 08/23/2020 12:00:00 AM EST tablet 30 TAKE ONE TABLET BY MOUTH XIOMARA DAY TAKE ONE TABLET BY MOUTH EVERY DAY SOLD: 09/08/2020 [facility] Escitalopram 20 MG Oral Tablet ESCITALOPRAM OXALATE 08/23/2020 1 2:00:00 AM EST tablet 45 TAKE 1 AND 1/2 TABLETS BY MOUTH ONCE DAILY TAKE 1 AND 1/2 TABLETS BY MOUTH ONCE DAILY SOLD: 09/08/2020 [facility] Escitalopram 20 MG Oral Tablet ESCITALOPRAM OXALATE 08/23/2020 1 2:00:00 AM EST tablet 45 TAKE 1 AND 1/2 TABLETS BY MOUTH ONCE DAILY TAKE 1 AND 1/2 TABLETS BY MOUTH ONCE DAILY SOLD: 12/02/2020 [facility] fluticasone propionate 50 mcg/actuation nasal spray,suspension SPRAY ONE SPRAY IN ONE NOSTRIL EVERY DAY [id number] completed fluticasone propionate 0.05 MG/ACTUAT Metered Dose Nasal [place] KENYA ([facility]) Clonidine Hydrochloride 0.2 MG Oral Tabl et clonidine HCl 0.2 mg tablet TAKE ONE TABLET BY MOUTH EVERY DAY clonidine HCl 0.2 mg tablet TAKE ONE TAB LET BY MOUTH EVERY DAY completed clonidine hy drochloride 0.2 MG Oral Tablet KENYA ([facility]) Prednisone 20 MG Oral Tablet prednisone 20 mg tablet TAKE THREE TABLETS BY MOUTH EVERY DAY prednisone 20 mg tablet TAKE THREE TABLETS BY MOUTH EVERY DAY completed prednisone 20 MG Oral Tab let KENYA ([facility]) Escitalopram 20 MG Oral Tablet escitalop bruce 20 mg tablet TAKE 1 AND 1/2 TABLETS BY MOUTH ONCE DAILY escitalopram 20 mg tablet TAKE 1 AND 1/2 TABLETS BY MOUTH ONCE DAILY completed escitalopra m 20 MG Oral Tablet KENYA ([facility]) Escitalopram 10 MG Oral Tablet escitalop bruce 10 mg tablet TAKE ONE TABLET BY MOUTH EVERY DAY escitalopram 10 mg tablet TAKE ONE TABLET BY MOUTH EVERY DAY completed escitalopram 1 0 MG Oral Tablet KENYA ([facility]) cetirizine hydrochloride 10 MG Oral Tabl et cetirizine 10 mg tablet TAKE ONE TABLET BY MOUTH EVERY DAY cetirizine 10 mg tablet TAKE ONE TABLET BY MOUTH EVERY DAY completed cetirizine hydro chloride 10 MG Oral Tablet KENYA ([facility]) Insurance Providers Payer name Policy type / Coverage type Policy ID Covered libertarian ID Covered libertarian's relationship to peterson Policy Peterson Plan Information [facility] Part B [id number] Self [id number] MVP Preferred (Hmo) Health Maintenance Organization (HMO) [id number] Family Dependent [id number] [facility] Part B [id number] Family Dependent [id number] [facility] Part B [id number] Family Dependent [id number] [facility] Ins [facility] () Workers Compensation [id number] Self [facility] Ins [facility] () Workers Compensation [id number] Self [id number] [facility] Trad/MX Commercial [id number] [id number] Self [id number] EXCELLUS H [id number] Self [id number] WORKERS COMPENSATION GENERIC W [id number] Empl [id number] NATIONWIDE INS WORK COMP [id number] GJ SP [id number] WORKERS COMPENSATION GENERIC W [id number] Empl [id number] Blue Cross Blue Shield P [id number] SELF [id number] BCBS OF [place] [id number] S VYA [id number] [facility] [employer] [place] [employer]. [id number] Self [id number] NTIONWIDE INSURANCE CASE# [id number] S CASE# [id number] OTHER NO FAULT NATIONWIDE CASE# [id number] S CASE# [id number] EXCELLUS BC-BS PPO 306 [id number] SP [id number] EXCELLUS BCBS B [id number] S VYA [id number] SELF PAY ONLY [id number] SP VYA [id number] EMEDNY [id number] SP [id number] NATIONWIDE [id number] 18 [id number] BCBS [place] WATN PPO 302/307 [id number] SP [id number] NATIONWIDE INS WORK COMP [id number] SP [id number] NATIONWIDE INS WORK COMP [id number] GJ SP [id number] GJ [facility] CHILDRENS HOME [id number] SP [id number] UNK [id number] SP [id number] [facility] CHILDREN HOME O [id number] S [id number] OTHER WORKERS COMPENSATI O [id number] O [id number] [facility] JANEE [id number] SP [id number] [facility]EE [id number] SP [id number] Workers Compensation Workers Compensation [id number].[id number] Self [id number] DO Not Use (Now #114) Commercial [id number] Family Dependent [id number] Blue Shield Medigap Part B [id number] Family Dependent [id number] Workers Compensation Workers Compensation [id number] Self [id number] DO Not Use (Now #114) Commercial [id number] [id number] Family Dependent [id number] Workers Compensation Workers Compensation [id number] [id number] Self [id number] DO Not Use (Now #114) Commercial [id number] Family Dependent [id number] [facility] CHILDRENS HOME OTHER W.C.EMPLOYER NOSTROMO ICT WORKER COMP [id number] SP [id number] BCBS [facility] 302/307 [id number] SP [id number] BCBS [facility] 280/[phone] [id number] FA2 [id number] BCBS/Excellus Commercial [id number] Family Dependent [id number] BCBS [id number] Blue Cross/Bl ue Shield [id number] Workers Compensation Workers Compensation [id number] [id number] Self [id number] DO Not Use (Now #114) Commercial [id number] [id number] Family Dependent [id number] Blue Shield Commercial [id number] [id number] Family Dependent [id number] BCBS/Excellus Commercial [id number] [id number]. [id number] Family Dependent [id number] EXCELLUS BCBS B [id number] O [id number] [id number] BCBS/Excellus Commercial [id number] Self [id number] [facility] [id number] Workers Compensation Workers Compensation [id number] Self [id number] [employer] Commercial [id number] Family Dependent [id number] [facility] INSURANCE FUND [id number] BCBS [facility] 280/780 [id number] FA2 [id number] STATE INSURANCE FUND O [id number] S [id number] BLUE CROSS BLUE SHIELD -O/P [id number] Workers Compensation Workers Compensation [id number] Self [employer] Commercial [id number] Family Dependent Blue Shield Commercial [id number] Self 834 STATE INSURANCE FUND O [id number] C [id number] SELF PAY O UNAVAILABLE C UNAVAILA BLE Workers Compensation Workers Compensation [id number] Self Workers Compensation Workers Compensation [id number] Self Excellus Blue Cross Commercial [id number] Self Workers Compensation Workers Compensation [id number] Self Workers Compensation Workers Compensation [id number] Self Workers Compensation Workers Compensation [id number] Self Workers Compensation Workers Compensation [id number] Self Workers Compensation Workers Compensation [id number] Self EXCELLUS BCBS B [id number] D [id number] Workers Compensation Workers Compensation [id number] Self Workers Compensation Workers Compensation [id number] Self Workers Compensation Workers Compensation [id number] Self BCBS [place] 160/660 [id number] SP [id number] [facility] [id number] HU2 [id number] EXCELLUS BCBS S UNAVAILABLE [id number] C UNAV AILABLE [facility] P [id number] C [id number] PGBA [facility] S [id number] C [id number] UN COMMUNITY PLAN MCDO [id number] SP [id number] [facility] MEDICAID [id number] S [id number] UNHC FB [id number] S [id number] UN COMMUNITY PLAN [place] [facility] [id number] SP [id number] [place] [id number] SP [id number] M MEDICAID [id number] S [id number] MEDICAID [id number] S [id number] BCBS OF [place] [id number] S [id number] [id number] BCBS [place] WATN 306/806 [id number] SP [id number] EMEDNY [id number] SP [id number] [facility] [id number] S [id number] NATIONWIDE INSURANCE CASE# [id number] S CASE# [id number] OTHER NO FAULT CASE# [id number] S CASE# [id number] NATIONWIDE CASE# [id number] S CASE # [id number] Problems, Conditions, and Diagnoses Code Display Name Description Problem Type Effective Dates Data Source(s) Z53.29 Procedure and treatment not carried out because of patient's decision for other reasons PROC/TRTMT NOT CRD OUT BEC PT DECISION FOR OTH REASONS Diagn osis 04/13/2021 10:15:00 AM [facility] Z87.891 Personal history of nicotine dependence PERSONAL HISTORY OF NICOTINE DEPENDENCE Diagnosis 03/22/2021 01:04:00 PM [facility] l R13.19 Other dysphagia OTHER DYSPHAGIA Diagnosis 03/22/2021 01:0 4:00 PM [facility] M94.0 Chondrocostal junction syndrome [Tietze] CHONDROCOSTAL JUNCTION SYNDROME [TIETZE] Diagnosis 03/22/2021 01:04:00 PM [facility] l R07.9 Chest pain, unspecified CHEST PAIN, UNSPECIFIED Diagno sis 03/22/2021 01:04:00 PM [facility] R09.82 Postnasal drip POSTNASAL DRIP Diagnosis 03/16/2021 02:33: 00 PM [facility] J02.9 Acute pharyngitis, unspecified ACUTE PHARYNGITIS, UNSP ECIFIED Diagnosis 03/16/2021 02:33:00 PM [facility] F43.10 Post-traumatic stress disorder, unspecif ied POST-TRAUMATIC STRESS DISORDER, UNSPECIFIED Diagnosis 03/16/2021 11:51:00 [facility] M79.89 Other specified soft tissue disorders OT HER SPECIFIED SOFT TISSUE DISORDERS Diagnosis 11/23/2020 03:11:00 PM [facility] T80.69XA Other serum reaction due to other serum, initial encounter OTHER SERUM REACTION DUE TO OTHER SERUM, INITIAL E Diagnosis 11/23/2020 03:11:00 P M [facility] L29.9 Pruritus, unspecified PRURITUS, UNSPECIFIED Diagnosis 11/23/2020 03:11:00 PM [facility] F43.22 Adjustment disorder with anxiety ADJUSTMENT DISO RDER WITH ANXIETY Diagnosis 10/18/2020 02:00:00 PM [facility] F43.23 Adjustment disorder with mixed anxiety a nd depressed mood Adjustment disorder with mixed anxiety and depressed mood Diagnosis 020 07:42:47 AM T [facility] F43.10 Post-traumatic stress disorder, unspecif ied Post-traumatic stress disorder, unspecified Diagnosis 06/01/2020 07:42:47 AM EDT [facility] S06.0X1A Concussion with loss of cons ciousness of 30 minutes or less, initial encounter Concussion with loss of consciousness of 30 minutes or less, initial encounter Diagnosis 06/01/2020 07:42:47 AM EDT [facility] F4310 Post-traumatic stress disorder, unspecif ied Post-traumatic stress disorder, unspecified Diagnosis 04/05/2020 12:30:00 PM EDT [facility] Z0271 Encounter for disability determination E ncounter for disability determination Diagnosis 04/05/2020 12:30:00 PM EDT [facility] G89.29 [id number] Other chronic pain Problem 04/18/2021 12:00: 00 AM EDT eCW1 ([facility]) G89.29 Chronic pain Other chronic pain Problem 07/10/2020 12:0 0:00 AM EST eCW1 ([facility]) Surgeries/Procedures Procedure Description Date Indications Data Source(s) Unclassified drugs 09/04/2020 12:00:00 AM EST eCW1 ([facility]) Completion of procedural visit when meets criteria 09/04/2020 12:00:00 AM EST eCW1 ([facility]) Pain Procedure Log 07/10/2020 12:00:00 AM EST eCW1 ([facility]) Results ID Date Data Source [id number] 05/13/2021 03:45:00 PM EDT [facility] Name Value Range Interpretation Code Description Data Linda rce(s) Supporting Document(s) SARS-CoV-2 RNA Resp Ql CHRISTINA+probe NOT DETECTED [facility] This lab was ordered by [facility] and reported by [facility]. ID Date Data Source [id number] 03/22/2021 03:38:00 PM EDT [facility] Patient: BETTINA VILLEDA n Report - [facility].VisitID: [id number] [place] [address] [phone], FRegistration Date/Time: 03/22/2021 12:48 Weight:79.3 kg (S). Height/Length:66 inches (S). 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 Medications:None. Allergies:No Known Drug Allergy. FAMILY HISTORYNegative. No significant family medical history. (Electronically signed by Marion Silva 03/22/2021 15:32) Name Value Range Interpretation Code Description Data Linda rce(s) Supporting Document(s) ID Date Data Source [id number] 03/22/2021 03:35:00 PM EDT [facility] Patient: BETTINA VILLEDArandalyasmin n Report - [facility].VisitID: [id number] [place] [address] [phone], FRegistration Date/Time: 03/22/2021 12:48 Weight:79.3 kg (S). Height/Length:66 inches (S). 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 Medications:None. Allergies:No Known Drug Allergy. FAMILY HISTORYNegative. No significant family medical history. (Electronically signed by Marion Silva 03/22/2021 15:24) Name Value Range Interpretation Code Description Data Linda rce(s) Supporting Document(s) ID Date Data Source [id number] 03/22/2021 02:29:00 PM EDT [facility] [...] rce(s) Supporting Document(s) ID Date Data Source [id number] 03/22/2021 01:36:00 PM EDT [facility] l TSYSORDER [id number] Name Value Range Interpretation Code Description Data Linda rce(s) Supporting Document(s) HCG URINE NEGATIVE NEGATIVE [facility] ID Date Data Source [id number] 03/22/2021 02:10:00 PM EDT [facility] l TSYSORDER [id number] Name Value Range Interpretation Code Description Data Linda rce(s) Supporting Document(s) FREE T4 1.1 ng/dL 0.76-1.46 [facility] ID Date Data Source [id number] 03/22/2021 02:10:00 PM EDT [facility] l TSYSORDER [id number] Name Value Range Interpretation Code Description Data Linda rce(s) Supporting Document(s) TSH 1.510 uIU/mL 0.360-3.740 [facility] ID Date Data Source [id number] 03/22/2021 01:54:00 PM EDT [facility] TSYSORDER [id number] Name Value Range Interpretation Code Description Data Linda rce(s) Supporting Document(s) MAGNESIUM 2.0 mg/dL 1.8-2.4 [facility] ID Date Data Source [id number] 03/22/2021 01:54:00 PM EDT [facility] TSYSORDER [id number] Name Value Range Interpretation Code Description Data Linda rce(s) Supporting Document(s) TROPONIN-HIGH SENSITIVITY 4.6 ng/L 0-60.4 [facility] ID Date Data Source [id number] 03/22/2021 01:54:00 PM EDT [facility] TSYSORDER [id number] Name Value Range Interpretation Code Description Data Linda rce(s) Supporting Document(s) LIPASE 153 U/L 73-393 [facility] ID Date Data Source [id number] 03/22/2021 01:54:00 PM EDT [facility] TSYSORDER [id number] Name Value Range Interpretation Code Description Data Linda rce(s) Supporting Document(s) GLUCOSE 84 mg/dL 74-106 [facility] BLOOD UREA NITROGEN 7 mg/dL 7-18 [facility] ital CREATININE 0.71 mg/dL 0.6-1.0 [facility] SODIUM 140 mmol/L 136-145 [facility] POTASSIUM 3.8 mmol/L 3.5-5.1 [facility] CHLORIDE 105 mmol/L 98-107 [facility] CO2 23 mmol/L 21-32 [facility] CALCIUM 8.5 mg/dL 8.5-10.1 [facility] ANION GAP 12.0 mmol/L 5-12 [facility] GLOMERULAR FILTRATION RATE >90 mL/min [facility] GFR IS CALCULATED IN mL/min/1.73m2 PEPITO L FUNCTION: >90MILDLY DECREASED: 60-89MILDY TO MODERATELY DECREASED: 45-59 MODERATELY TO SEVERELY DECREASED: 30-44SEVERELY DECREASED: 15-29RENAL FAILURE: <15 AST 14 U/L 15-37 L [facility] ALT 24 U/L 12-78 [facility] ALKALINE PHOSPHATASE 42 U/L 46-116 L [facility] TOTAL BILIRUBIN 0.5 mg/dL 0.2-1.0 [facility] TOTAL PROTEIN 7.0 g/dl 6.4-8.2 [facility] ALBUMIN 3.4 gm/dL 3.4-5.0 [facility] ID Date Data Source [id number] 03/22/2021 01:32:00 PM EDT [facility] TSYSORDER [id number] Name Value Range Interpretation Code Description Data Linda rce(s) Supporting Document(s) WHITE BLOOD COUNT 7.1 K/mm3 4.0-10.0 [facility] al RED BLOOD COUNT 4.30 M/mm3 4.00-5.50 [facility] HEMOGLOBIN 10.6 gm/dL 12.0-16.0 L [facility] HEMATOCRIT 32.6 % 36.0-48.8 L [facility] MEAN CELL VOLUME 75.8 fl 80-96 L [facility] MEAN CORPUSCULAR HEMOGLOBIN 24.7 pg 27.0-31.0 L [facility] MEAN CORPUSCULAR HGB CONC 32.5 g/dl 32.0-36.0 [facility] RED CELL DISTRIBUTION WIDTH 22.1 % 10.0-14.5 H [facility] PLATELET COUNT 272 K/mm3 172-450 [facility] MEAN PLATELET VOLUME 10.3 fl 9.0-13.0 [facility] GRAN % 58.9 % 50-80.0 [facility] IG% 0.0 % 0.0-0.2 [facility] LYMPH % 29.2 % 25.0-50.0 [facility] MONO % 8.5 % 2.0-10.0 [facility] EOS % 3.1 % 0-5.0 [facility] BASO % 0.3 % 0.0-2.0 [facility] GRAN # 4.2 K/mm3 2.0-8.00 [facility] IG# 0.0 K/mm3 0.0-0.2 [facility] LYMPH # 2.1 K/mm3 1.0-5.0 [facility] MONO # 0.6 K/mm3 0.10-1.20 [facility] EOS # 0.2 K/mm3 0.0-0.5 [facility] BASO # 0.0 K/mm3 0.0-0.2 [facility] ID Date Data Source [id number] 01/23/2021 07:28:00 PM EDT [facility] Name Value Range Interpretation Code Description Data Linda rce(s) Supporting Document(s) SARS coronavirus 2 RNA [Presence] in Res piratory specimen by CHRISTINA with probe detection NEGATIVE [facility] This lab was ordered by [facility] a nd reported by [facility]. ID Date Data Source [id number] 08/30/2020 11:05:00 AM EST [facility] Name Value Range Interpretation Code Description Data Linda rce(s) Supporting Document(s) SARS coronavirus 2 RNA Not Detected [facility] [place] This lab was ordered by [facility] and reported by [facility]. ID Date Data Source [id number] 06/09/2020 04:05:31 PM EDT [facility] Name Value Range Interpretation Code Description Data Linda rce(s) Supporting Document(s) Progress Note [facility] MMBHVv6lZcBFQtHj42/OZFkhMHQjx8VpVNjuMIu1YWylFFUgQ3IgWWY7uR3rLGD6ZEmEIaWwFcZfCNYv lbm [file] ICAgICAgICAgICAgICAgICAgICAgICAgICAgICAgICAgICAgICAgICAgICAgICAgICAgICAgICAgICAg ICAgICAgICAgDQogICAgICAgICAgICAgICAgICAgIC AgICAgICAgICAgICAgICAgICAgICAgICAgICAgICAgICAgICAgICAgICAgICAgICAgICAgICAgICAgIC AgICAgICAgICAgICAgICAgICAgDQogICAgICAgICAgICAgICAgICAgICAgICAgICAgICAgICAgICAgIC AgICAgICAgICAgICAgICAgICAgICAgICAgICAgICAg ICAgICAgICAgICAgICAgICAgICAgICAgICAgICAgDQogICAgICAgICAgICAgICAgICAgICAgICAgICAg ICAgICAgICAgICAgICAgICAgICAgICAgICAgICAgICAgICAgICAgICAgICAgICAgICAgICAgICAgICAg ICAgICAgICAgICAgDQogICAgICAgICAgICAgICAgIC AgICAgICAgICAgICAgICAgICAgICAgICAgICAgICAgICAgICAgICAgICAgICAgICAgICAgICAgICAgIC AgICAgICAgICAgICAgICAgICAgICAgDQogICAgICAgICAgICAgICAgICAgICAgICAgICAgICAgICAgIC AgICAgICAgICAgICAgICAgICAgICAgICAgICAgICAg ICAgICAgICAgICAgICAgICAgICAgICAgICAgICAgICAgDQogICAgICAgICAgICAgICAgICAgICAgICAg ICAgICAgICAgICAgICAgICAgICAgICAgICAgICAgICAgICAgICAgICAgICAgICAgICAgICAgICAgICAg ICAgICAgICAgICAgICAgDQogICAgICAgICAgICAgIC AgICAgICAgICAgICAgICAgICAgICAgICAgICAgICAgICAgICAgICAgICAgICAgICAgICAgICAgICAgIC AgICAgICAgICAgICAgICAgICAgICAgICAgDQogICAgICAgICAgICAgICAgICAgICAgICAgICAgICAgIC AgICAgICAgICAgICAgICAgICAgICAgICAgICAgICAg ICAgICAgICAgICAgICAgICAgICAgICAgICAgICAgICAgICAgDQogICAgICAgICAgICAgICAgICAgICAg ICAgICAgICAgICAgICAgICAgICAgICAgICAgICAgICAgICAgICAgICAgICAgICAgICAgICAgICAgICAg TQAdTSQwUAPuLFFbREVdMWWoJJa0N8dpCCBtVKQqFJ 8sNRq6Ps1+OBpEOjMmLJP2cpSdiY7UMI2uv8IwMPobFTEaa9BvOSz3OB0WOXVwZJzmQW1NBMdukt8AIP LgUUItwMFFg9riEcTcBIZ7LBXvEtceUL6OMHRrA1vivwZuSGCuOCEBSLqtLIDEKInoLKGMGA2AFdHfC6 OotD94JGFMVs3+SHttueVrIzxTQdFoZNBqh2SiGTy4 RK3GVEEqNxvok4WtKnDrZQWOOByyZP0YNOU2YGV8ODJpIb9IZNQvM014ovSeVP3CId6DIsPoYC9opy8L OnOiIYAnBslYBln5ZIibLH7IrVLyQEuJni1tjqNmybWJz3MpoxDysWJZYJ8lxOGFPPZenrHkj7npgpbg DKU4KOBaoREhSI4kDt9aQUEeNWCnRmVrJBMBBJ8WTZ UqRYAhzMOqOCZdRAAZRC1EOIpfYAR1DEDrlyFsvBKeRLspEQ9VWRMqnkRxBqPaHTJHFDj+Xv6YKP2ba1 OoJPuyVNCwBB9gum9FRYpYOkWdF9X3dUKsK2F8ZOddSa6KAINiSHLqYqAvEOZCQFxaHP0RQA8plwL0JL 4QxPKuUORcVTImlOKpDXq8Q05bzNMwRAmwJV0WRXW+ Wilber+Yq7ZADRrGRLkVBVtHyHhCVQNEsPtF6PqP8SRd4IpP4CfIK46bWvzctItNPkjAH9ASB2cDBWdSXUX FQ3PbEKopS0mnzUhFwVkPJTZYxFkC96unWUlQJUeLJUcYZIzXt2SRTDqP1RlvjTelMdkhaWtCGFoZYGR EF4QLBetevYkuDCpoVpaZQ65iJczSF6JOs2DBrHpTF 6cad6QlYSqXw4BVOOhLw7AOSNhFLIyWYDnXCU5QJUuVgGeIUgzMDAdKQEgFUH8FLCtFJGlQX8QZgUlSI ViRff6UcZkYYObLCRxgm0UTMUhRKVwFYT0VOZtECGuFJGlDJrtGLZnMQDeFWQ0GEUpOIJwBZ0WHwOqEA ZyKCQ0AOWxPQTdSFOwxo3DZEKbPILsDPm4ITNoNPVj MGYgMNnvVIQzLXH3Sme7IICjXHFiLB8WVqDdJFNtHQc3VEOnJJAlCGMvge1RRWVsBDHrScN4XEBvJPMb CXNxWApiXFYcPZHuKVhrAYHxUGIfNY8DHlRpJLEcAWX3TWPzUUXxCXWiep7MOGExPHBhJLY5FIJrPGEd JJXcYIszVIYiEFR5JWTbCLVbTGMcDJ4SVfAdDSMxLV R3AKBvOULtOCImwb6QAJYfDCKjUZt4BHIuQILyXIPcXOqyEILaQGZ8KJonIQMgXGHcLZ5HReJsRNAzPg w0CfouCOBeRBFphp5UVLSrLSNbBjm3CvCzVMRmPOGeNVnkTPHwHCR8LAXjLAKpXARtTJ0JWuOfWMMzQb jlFIRtGKFqIVZldg1UFHJeIFLhSIEcGWNpEDKhNCEp OJswBVOyQNT6UTA2JVHoIXRuAF2YOjLmGHXoUdKfQKyhLQIxUUBhme0PCNTrRUWaOHH3AHGjDGDzCYOe HHveGVRvAAAeRYN1ZKRzWGHrQK0YXkEcSZavCTQRIog1QRwiK8l7DCCyKb3UI5Cwe9ScRwBqGFGUYHcf BD9mrtNpFMUfRf7VP9cWSim6RWY1A5KbGke7M5Y7Vn N4WHkkKeYxJZbhIFroZSY1WP7mEWvpCYY7TJS2UzchKEK6SOQfNQBeJMZ4BkNlSRU7PCzvEgBpLD8QWs 7ZTyV1BMH6bKEoXj0USjM9PYlZWbCmAI4CGKd= Procedure Social History Code Duration Value Status Description Data Source(s ) Smoking 03/16/2021 12:00:00 AM EDT Former Smoker completed Former Smoker eCW1 ([facility]) Smoking 03/16/2021 12:00:00 AM EDT Former Smoker completed Former Smoker eCW1 ([facility]) Smoking 03/16/2021 12:00:00 AM EDT Former Smoker completed Former Smoker eCW1 ([facility]) Smoking 03/16/2021 12:00:00 AM EDT Former Smoker completed Former Smoker eCW1 ([facility]) Smoking 03/16/2021 12:00:00 AM EDT Former Smoker completed Former Smoker eCW1 ([facility]) Smoking 03/16/2021 12:00:00 AM EDT Former Smoker completed Former Smoker eCW1 ([facility]) Smoking 03/16/2021 12:00:00 AM EDT Former Smoker completed Former Smoker eCW1 ([facility]) Smoking 03/16/2021 12:00:00 AM EDT Former Smoker completed Former Smoker [email or web address] ([facility]) Smoking 11/23/2020 12:00:00 AM EDT Former Smoker completed Former Smoker [email or web address] ([facility]) Smoking 09/01/2020 12:00:00 AM EST Current Smoker completed Curre nt Smoker [email or web address] ([facility]) Smoking 09/01/2020 12:00:00 AM EST Current Smoker completed Curre nt Smoker eCW1 ([facility]) Smoking 09/01/2020 12:00:00 AM EST Current Smoker completed Curre nt Smoker eCW1 ([facility]) Smoking 08/09/2020 12:00:00 AM EST Current Smoker completed Curre nt Smoker eCW1 ([facility]) Smoking 07/10/2020 12:00:00 AM EST Current Smoker completed Curre nt Smoker eCW1 ([facility]) Smoking 05/05/2020 12:00:00 AM EDT Current Smoker completed Curre nt Smoker eCW1 ([facility]) Smoking 05/05/2020 12:00:00 AM EDT Current Smoker completed Curre nt Smoker [email or web address] ([facility]) Smoking 05/05/2020 12:00:00 AM EDT Current Smoker completed Curre nt Smoker [email or web address] ([facility]) Vital Signs ID Date Data Source UNK Name Value Range Interpretation Code Description Data Source(s) Body height 66 [in_i] 66 [in_i] KENYA ([facility] [facility]) Body weight 176.8 [lb_av] 176.8 [lb_av] KENYA ([facility]) Body mass index (BMI) [Ratio] 28.5 kg/m2 28.5 k g/m2 KENYA ([facility]) Systolic blood pressure 119 mm[Hg] 119 mm[Hg] A THENA ([facility]) Diastolic blood pressure 73 mm[Hg] 73 mm[Hg] KENYA ([facility]) Body height 65 [in_i] 65 [in_i] eCW1 ([facility]) Body temperature 98.0 [degF] 98.0 [degF] eCW1 ( [facility]) Heart rate 73 /min 73 /min eCW1 ([facility]) Respiratory rate 18 /min 18 /min eCW1 ([facility]) Oxygen saturation in Arterial blood by Pulse oximetry 99 % 99 % eCW1 ([facility]) Body height 65 [in_i] 65 [in_i] eCW1 ([facility]) Body weight 180 [lb_av] 180 [lb_av] eCW1 ([facility]) Body mass index (BMI) [Ratio] 29.95 kg/m2 29.95 kg/m2 eCW1 ([facility]) Body temperature 97.5 [degF] 97.5 [degF] eCW1 ( [facility]) Heart rate 59 /min 59 /min eCW1 ([facility]) Respiratory rate 16 /min 16 /min eCW1 ([facility]) Oxygen saturation in Arterial blood by Pulse oximetry 99 % 99 % eCW1 ([facility]) Body weight 187.6 [lb_av] 187.6 [lb_av] eCW1 ([facility]) Body height 65 [in_i] 65 [in_i] eCW1 ([facility]) Body mass index (BMI) [Ratio] 31.21 kg/m2 31.21 kg/m2 eCW1 ([facility]) Heart rate 75 /min 75 /min eCW1 ([facility]) Respiratory rate 18 /min 18 /min eCW1 ([facility]) Body temperature 97.5 [degF] 97.5 [degF] eCW1 ( [facility]) Systolic blood pressure 116 mm[Hg] 116 mm[Hg] e CW1 ([facility]) Diastolic blood pressure 57 mm[Hg] 57 mm[Hg] eCW1 ([facility]) Body weight 185.2 [lb_av] 185.2 [lb_av] eCW1 ([facility]) Body height 65 [in_i] 65 [in_i] eCW1 ([facility]) Body mass index (BMI) [Ratio] 30.82 kg/m2 30.82 kg/m2 eCW1 ([facility]) Heart rate 77 /min 77 /min eCW1 ([facility]) Respiratory rate 18 /min 18 /min eCW1 ([facility]) Body temperature 98.1 [degF] 98.1 [degF] eCW1 ( [facility]) Systolic blood pressure 112 mm[Hg] 112 mm[Hg] e CW1 ([facility]) Diastolic blood pressure 56 mm[Hg] 56 mm[Hg] eCW1 ([facility]) Diastolic blood pressure 54 mm[Hg] 54 mm[Hg] eCW1 ([facility]) Body weight 182.2 [lb_av] 182.2 [lb_av] eCW1 ([facility]) Body height 65 [in_i] 65 [in_i] eCW1 ([facility]) Body mass index (BMI) [Ratio] 30.32 kg/m2 30.32 kg/m2 eCW1 ([facility]) Heart rate 87 /min 87 /min eCW1 ([facility]) Respiratory rate 18 /min 18 /min eCW1 ([facility]) Body temperature 98.2 [degF] 98.2 [degF] eCW1 ( [facility]) Systolic blood pressure 115 mm[Hg] 115 mm[Hg] e CW1 ([facility]) Body height 65 [in_i] 65 [in_i] eCW1 ([facility]) Body weight 181.0 [lb_av] 181.0 [lb_av] eCW1 ([facility]) Body mass index (BMI) [Ratio] 30.12 kg/m2 30.12 kg/m2 eCW1 ([facility]) Body temperature 98.6 [degF] 98.6 [degF] eCW1 ( [facility]) Heart rate 86 /min 86 /min eCW1 ([facility]) Respiratory rate 18 /min 18 /min eCW1 ([facility]) Oxygen saturation in Arterial blood by Pulse oximetry 99 % 99 % eCW1 ([facility]) Patient Treatment Plan of Care Planned Activity Planned Date Details Description Data Source (s) Flonase Allergy Relief 50 MCG/ACT 03/16/2021 12:00:00 AM EDT eCW1 ([facility]) cetirizine hydrochloride 10 MG Oral Tablet 03/16/2021 12:00:00 AM E DT eCW1 ([facility]) Flonase Allergy Relief 50 MCG/ACT 03/16/2021 12:00:00 AM EDT eCW1 ([facility]) cetirizine hydrochloride 10 MG Oral Tablet 03/16/2021 12:00:00 AM E DT eCW1 ([facility]) Flonase Allergy Relief 50 MCG/ACT 03/16/2021 12:00:00 AM EDT eCW1 ([facility]) cetirizine hydrochloride 10 MG Oral Tablet 03/16/2021 12:00:00 AM E DT eCW1 ([facility]) Flonase Allergy Relief 50 MCG/ACT 03/16/2021 12:00:00 AM EDT eCW1 ([facility]) cetirizine hydrochloride 10 MG Oral Tablet 03/16/2021 12:00:00 AM E DT eCW1 ([facility]) Prednisone 20 MG Oral Tablet KENYA ([facility]) fluticasone propionate 50 mcg/actuation nasal spray,suspension SPRAY ONE SPRAY IN ONE NOSTRIL EVERY DAY KENYA ([facility]) Escitalopram 20 MG Oral Tablet KENYA ([facility]) Escitalopram 10 MG Oral Tablet KENYA ([facility]) Clonidine Hydrochloride 0.2 MG Oral Tablet KENYA ([facility]) cetirizine hydrochloride 10 MG Oral Tablet KENYA ([facility])
[2021-05-28] MEDS ORDERED: IBUPROFEN 600MG TAB PO ONE (12:00)
[2021-05-28 12:07] VITALS: BP 116/57
== END 2021-05-28 12:19 | disposition home or self-care (01) ==
LOC: M ED 09:41
DX: S67.01XA Crushing injury of right thumb, initial encounter (principal); W23.0XXA Caught, crushed, jammed, or pinched between moving objects, initial encounter; Y92.9 Unspecified place or not applicable; Y93.9 Activity, unspecified; Y99.0 Civilian activity done for income or pay

== ENCOUNTER → 2021-06-08 | Outpatient (CLI) | payer OTHER | LOC: M PAIN 15:15 | PROVIDERS: ATTEND Anesthesiology | DX: G89.29 Other chronic pain (principal); M51.16 Intervertebral disc disorders with radiculopathy, lumbar region; D64.9 Anemia, unspecified; F43.10 Post-traumatic stress disorder, unspecified; F07.81 Postconcussional syndrome; F17.210 Nicotine dependence, cigarettes, uncomplicated; Z79.899 Other long term (current) drug therapy ==

== ENCOUNTER → 2021-06-11 | Outpatient (CLI) | payer OTHER | LOC: M LABSMTC 09:23 | PROVIDERS: ATTEND Anesthesiology | DX: Z01.818 Encounter for other preprocedural examination (principal); Z11.52 Encounter for screening for COVID-19 ==

== ENCOUNTER → 2021-06-15 | Outpatient (CLI) | payer OTHER ==
[~2021-06-15] MED LIST changes: +ISOVUE-M 300 61% 15ML VIAL As Ordered ONE; +LIDOCAINE 1% SDV 30ML VIAL As Ordered ONE; +ONDANSETRON 4 MG ORAL DISINTEGRATING TAB As Ordered ONE; +diazePAM 5MG TABLET As Ordered ONE; +methylPREDNISolone SUSP 40MG/ML 1ML VIAL (DEPO MEDROL) As Ordered ONE; +oxyCODONE 5MG TAB As Ordered ONE
--- NOTE | 2021-06-15 19:26 | REP ---
INDICATION: LUMBAR EPIDURAL STEROID INJECTION. COMPARISON: 09/04/2020 TECHNIQUE: Three images from C-arm fluoroscopy provided to Dr. Tomas of the pain clinic. FINDINGS: Initial image shows a needle overlying the L4-5 disc space to the left of midline with the 2nd image showing epidural contrast in the 3rd image with the needle removed. IMPRESSION: 1. Status post L4-5 epidural steroid injection on the left. 2. Fluoroscopy time: 4 seconds. <Electronically signed by Riley De Luna > 06/15/211921
== END ==
LOC: M PAIN 15:30
PROVIDERS: ATTEND Anesthesiology
DX: M51.16 Intervertebral disc disorders with radiculopathy, lumbar region (principal); F17.210 Nicotine dependence, cigarettes, uncomplicated; Z86.59 Personal history of other mental and behavioral disorders; Z79.899 Other long term (current) drug therapy
CPT/HCPCS: 62323; J1030; Q0162; Q9967

== ENCOUNTER 2021-07-01 21:58 | Emergency (ER) | payer OTHER ==
[~2021-07-01] VITALS: Ht 167.6 cm; Wt 79.5 kg
[2021-07-01 21:58] VITALS: BP 121/69
[~2021-07-01 21:58] MED LIST changes: -ISOVUE-M 300 61% 15ML VIAL As Ordered ONE; -LIDOCAINE 1% SDV 30ML VIAL As Ordered ONE; -ONDANSETRON 4 MG ORAL DISINTEGRATING TAB As Ordered ONE; -diazePAM 5MG TABLET As Ordered ONE; -methylPREDNISolone SUSP 40MG/ML 1ML VIAL (DEPO MEDROL) As Ordered ONE; -oxyCODONE 5MG TAB As Ordered ONE
--- OUTSIDE RECORDS SUMMARY | 2021-07-01 22:06 | CCD ---
Author Author [facility] Organization [facility] Address Unknown Phone Unavailable Care Team Providers Care Senior Science Consultant Name Role Phone AmyDoraKeely Unavailable PROBLEMS Type Condition ICD9-CM Code [id number] Code Onset Dates Condition S tatus W/U Status Risk SNOMED Code Notes Problem PTSD (post-traumatic stress disorder) F43.10 Ac tive confirmed 76083524 Problem Other chronic pain G89.29 Active confirmed [id number] Problem Adjustment disorder with anxious mood F43.22 Ac tive confirmed 13460621 Problem Iron deficiency anemia, unspecified iron deficiency an emia type D50.9 Active confirmed 24396810 Problem Other headache syndrome G44.89 Active confirmed 238195969 Problem Post-traumatic stress disorder, unspecified F43.10 Active confirmed 84957845 ALLERGIES No Known Allergies ENCOUNTERS from 1992 to 2021-05-30 Encounter Location Date Provider Diagnosis [address] [id number] May, Keelyfrancis Reyes IMMUNIZATIONS No Information SOCIAL HISTORY [...] Information RESULTS No Results REASON FOR VISIT mTCM/ER follow up MEDICAL (GENERAL) HISTORY Type Description Date Medical History PTSD Medical History Anemia Medical History Adjustment anxiety disorder Surgical History No know Surgical history Hospitalization History [facility] 06/2019 Hospitalization History [facility] behavioral health 04/2020 Goals Section No Information Health Concerns No Information MEDICAL EQUIPMENT No Information MENTAL STATUS No Information FUNCTIONAL STATUS No Information ASSESSMENTS No Information PLAN OF TREATMENT No Information Insurance Providers Payer Name Payer Address Payer Phone Insured Name Patient Relati onship to Insured Coverage Start Date Coverage End Date [employer] [address] [facility] [id number] Dara Villeda self
--- OUTSIDE RECORDS SUMMARY | 2021-07-01 22:07 | CCD ---
Author Author [facility] Organization [facility] Address Unknown Phone Unavailable Support Name Relationship Address Phone CARFRESH Next Of Kin [address] [place] [address] [employer] STATION Next Of Kin [phone] [address] [employer] (M[employer] Next Of Kin [address] [facility] [address] [place] [address] CHERYL ZAPATA Next Of Kin [id number] [address] JAY ZAPATAIL Next Of Kin [phone] [address] OTHEMP Next Of Kin Unknown Unavailable CHERYL ALLAN Next Of Kin [address] [address] JEFFCOCHIL Next Of Kin [address] [facility] [address] [place] [address] JRC* [place] [address] UE Next Of Kin Unknown Unavailable Vaibhav ZAPATA Next Of Kin [address] [place] [address] STREAM Next Of Kin [address] [place] [address] TIMELESS Next Of Kin [address] [place] [address] [employer] ([employer]) Next Of Kin [address] [facility] [address] [place] [address] LIBBY HARRELL Next [place] [address] [place] [address] LIBBY HARRELL ECON [address] [place] [address] Unavailable Ronal Cheryl ECON [address] [place] [address] Unavailable Care Team Providers Care Communications Assistant Name Role Phone ANDREWOSZEK, A EBONY PA [...] Unavailable Amy, M Keely PA-C Unavailable Unavailable May, M Keely PA-C Unavailable Unavailable Amy, M Keely PA-C Unavailable Unavailable Amy, M Keely PA-C Unavailable Unavailable Amy, M Keely PA-C Unavailable Unavailable Amy, M Keely PA-C Unavailable Unavailable Amy, M Keely PA-C Unavailable Unavailable Amy, M Keely PA-C Unavailable Unavailable Amy, M Keely PA-C Unavailable Unavailable AmyYashira PA-C Unavailable Unavailable Amy, M Keely PA-C Unavailable Unavailable Regalado, Mainor Unavailable Regalado, Mainor Unavailable REGALADO, MAINOR Unavailable Unavailable DESJARLAIS, ADITI TRACTOR ENGINE ASSEMBLER Unavailable Unavailable DESJARLAIS, ADITI TRACTOR ENGINE ASSEMBLER Unavailable Unavailable DESJARLAIS, ADITI TRACTOR ENGINE ASSEMBLER Unavailable Unavailable DESJARLAIS, ADITI TRACTOR ENGINE ASSEMBLER Unavailable Unavailable DESJARLAIS, ADITI TRACTOR ENGINE ASSEMBLER Unavailable Unavailable DESJARLAIS, ADITI TRACTOR ENGINE ASSEMBLER Unavailable Unavailable DESJARLAIS, ADITI TRACTOR ENGINE ASSEMBLER Unavailable Unavailable DESJARLAIS, ADITI TRACTOR ENGINE ASSEMBLER Unavailable Unavailable DESJARLAIS, ADITI TRACTOR ENGINE ASSEMBLER Unavailable Unavailable DESJARLAIS, ADITI TRACTOR ENGINE ASSEMBLER Unavailable Unavailable AURELIANO HAMLIN Unavailable Unavailable NANCY LOW Unavailable Unavailable MARK, ANSELMO YAKOV PA Unavailable Unavailable MARK, ANSELMO YAKOV PA Unavailable Unavailable MARK, ANSELMO YAKOV PA Unavailable Unavailable MARK, ANSELMO YAKOV PA Unavailable Unavailable MARK, ANSELMO YAKOV PA Unavailable Unavailable MARK, ANSELMO YAKOV PA Unavailable Unavailable MARK, ANSELMO YAKOV PA Unavailable Unavailable MARK, ANSELMO YKAOV PA Unavailable Unavailable MARK, ANSELMO YAKOV PA [...] Unavailable Fabiola Noonan MD Unavailable Unavailable Bolla, Fabiola Woodard MD Unavailable Unavailable Bolla, Fabiola Woodard MD Unavailable Unavailable Bolla, Fabiola Woodard MD Unavailable Unavailable Bolla, Fabiola Woodard MD Unavailable Unavailable Bolla, Fabiola Woodard MD Unavailable Unavailable Bolla, Fabiola Woodard MD Unavailable Unavailable Bolla, Fabiola Woodard MD Unavailable Unavailable Bolla, Fabiola Woodard MD Unavailable Unavailable Bolla, Fabiola Woodard MD Unavailable Unavailable Bolla, Fabiola Woodard MD Unavailable Unavailable Bolla, Fabiola Woodard MD Unavailable Unavailable Bolla, Fabiola Woodard MD Unavailable Unavailable Bolla, Fabiola Woodard MD Unavailable Unavailable Bolla, Fabiola Woodard MD Unavailable Unavailable Bolla, Fabiola Woodard MD Unavailable Unavailable Bolla, Fabiola Woodard MD Unavailable Unavailable Bolla, Fabiola Woodard MD Unavailable Unavailable Bolla, Fabiola Woodard MD Unavailable Unavailable Bolla, Fabiola Woodard MD Unavailable Unavailable Bolla, Fabiola Woodard MD Unavailable Unavailable Bolla, Fabiola Woodard MD Unavailable Unavailable Bolla, Fabiola Woodard MD Unavailable Unavailable Bolla, Fabiola Woodard MD Unavailable Unavailable Bolla, Fabiola Woodard MD Unavailable Unavailable Bolla, Fabiola Woodard MD Unavailable Unavailable Bolla, Fabiola Woodard MD Unavailable Unavailable Bolla, Fabiola Woodard MD Unavailable Unavailable Bolla, Fabiola Woodard MD Unavailable Unavailable Bolla, Fabiola Woodard MD Unavailable Unavailable Bolla, Fabiola Woodard MD Unavailable Unavailable Bolla, Fabiola Woodard MD Unavailable Unavailable Bolla, Fabiola Woodard MD Unavailable Unavailable Bolla, Fabiola Woodard MD Unavailable Unavailable Bolbhanu, Fabiola Woodard MD Unavailable Unavailable Bolbhanu, Fabiola Woodard MD Unavailable Unavailable Bolla, Fabiola Woodard MD Unavailable Unavailable Bolbhanu, Fabiola Woodard MD Unavailable Unavailable Bolla, Fabiola Woodard MD Unavailable Unavailable Bolbhanu, Fabiola Woodard MD Unavailable Unavailable Bolla, Fabiola Woodard MD Unavailable Unavailable Bolla, Fabiola Woodard MD Unavailable Unavailable Bolla, Fabiola Woodard MD Unavailable Unavailable Bolla, Fabiola Woodard MD Unavailable Unavailable Carol, Reginah W Nani MERCHANDISING TEAM LEAD-C Unavailable Unavailabl e Carol, Reginah W Nani MERCHANDISING TEAM LEAD-C Unavailable Unavailabl e Carol, Reginah W Nani MERCHANDISING TEAM LEAD-C Unavailable Unavailabl e Carol, Reginah W Nani MERCHANDISING TEAM LEAD-C Unavailable Unavailabl e Carol, Reginajeevan W Nani MERCHANDISING TEAM LEAD-C Unavailable Unavailabl e Carol, Reginajeevan W Nani MERCHANDISING TEAM LEAD-C Unavailable Unavailabl e Carol, Reginajeevan W Nani MERCHANDISING TEAM LEAD-C Unavailable Unavailabl e Carol, Reginajeevan W Nani MERCHANDISING TEAM LEAD-C Unavailable Unavailabl e Carol, Reginajeevan W Nani MERCHANDISING TEAM LEAD-C Unavailable Unavailabl e Carol, Reginajeevan W Nani MERCHANDISING TEAM LEAD-C Unavailable Unavailabl e Carol, Reginajeevan W Nani MERCHANDISING TEAM LEAD-C Unavailable Unavailabl e Carol, Regina W Nani MERCHANDISING TEAM LEAD-C Unavailable Unavailabl e Carol, Reginajeevan W Nani MERCHANDISING TEAM LEAD-C Unavailable Unavailabl e Carol, Steffi W Nani MERCHANDISING TEAM LEAD-C Unavailable Unavailabl e Carol, Regbala W Nani MERCHANDISING TEAM LEAD-C Unavailable Unavailabl e Carol, Regbala W Nani MERCHANDISING TEAM LEAD-C Unavailable Unavailabl e Carol, Regbala W Nani MERCHANDISING TEAM LEAD-C Unavailable Unavailabl e Carol, Regryanne W Nani MERCHANDISING TEAM LEAD-C Unavailable Unavailabl e Carol, Regryanne W Nani MERCHANDISING TEAM LEAD-C Unavailable Unavailabl e Carol, Regryanne W Nani MERCHANDISING TEAM LEAD-C Unavailable Unavailabl e Carol, Regryanne W Nani MERCHANDISING TEAM LEAD-C Unavailable Unavailabl e Carol, Regryanne W Nani MERCHANDISING TEAM LEAD-C Unavailable Unavailabl e Carol, Regina W Nani MERCHANDISING TEAM LEAD-C Unavailable Unavailabl e Carol, Regina W Nani MERCHANDISING TEAM LEAD-C Unavailable Unavailabl e Carol, Regina W Nani MERCHANDISING TEAM LEAD-C Unavailable Unavailabl e Carol, Regina W Nani MERCHANDISING TEAM LEAD-C Unavailable Unavailabl e Carol, Regina W Nani MERCHANDISING TEAM LEAD-C Unavailable Unavailabl e Carol, Regina W Nani MERCHANDISING TEAM LEAD-C Unavailable Unavailabl e Carol, Regina W Nani MERCHANDISING TEAM LEAD-C Unavailable Unavailabl e Carol, Regina W Nani MERCHANDISING TEAM LEAD-C Unavailable Unavailabl e Carol, Reginah W Nani MERCHANDISING TEAM LEAD-C Unavailable Unavailabl e Carol, Reginah W Nani MERCHANDISING TEAM LEAD-C Unavailable Unavailabl e Mindy ORTIZ Unavailable Unavailable [...] Unavailable Unavailable DUSTY, ASHLI PA Unavailable Unavailable PRAVIN S LINDA Unavailable Unavailable CORLIAT S LINDA Unavailable Unavailable LEONOR, L PATTI PA Unavailable [...] Unavailable DIANA, ISHAN BENNY PA-C Unavailable Unavailable [place], Clair Mateus MERCHANDISING TEAM LEAD Unavailable Unavailable [place], Clair Mateus MERCHANDISING TEAM LEAD Unavailable Unavailable [place], Clair Mateus MERCHANDISING TEAM LEAD Unavailable Unavailable [place], Clair Mateus MERCHANDISING TEAM LEAD Unavailable Unavailable [place], Clair Mateus MERCHANDISING TEAM LEAD Unavailable Unavailable [place], Clair Mateus MERCHANDISING TEAM LEAD Unavailable Unavailable [place], Clair Mateus MERCHANDISING TEAM LEAD Unavailable Unavailable [place], Clair Ignacio MERCHANDISING TEAM LEAD Unavailable Unavailable [place], Clair Ignacio MERCHANDISING TEAM LEAD Unavailable Unavailable [place], Clair Ignacio MERCHANDISING TEAM LEAD Unavailable Unavailable [place], Clair Ignacio MERCHANDISING TEAM LEAD Unavailable Unavailable [place], Clair Ignacio MERCHANDISING TEAM LEAD Unavailable Unavailable [place], Clair Ignacio MERCHANDISING TEAM LEAD Unavailable Unavailable [place], Clair Ignacio MERCHANDISING TEAM LEAD Unavailable Unavailable RAYSHAWN WATT Unavailable Unavailable Re-disclosure Warning The records that [...] is protected by Article 27-F of the [facility] Public Health law. If you continue you may have access to information: Regarding HIV / AIDS; Provided by facilities licensed or operated by the [facility] Office of Mental Health; or Provided by the [facility] Office for People With Developmental Disabilities. If such information is present, then the following [facility] mandated warning applies: This information has [...] law may result in a fine or fci sentence or both. A general authorization for the release of medical or other information is NOT sufficient authorization for further disc losure. Allergies and Adverse Reactions Type Description Substance Reaction Status Data Source(s ) Propensity to adverse reactions NO KNOWN ALLERGIES NO KNOWN ALLERGIES Health System Family History Family Member Name Family Member Gender Family Member Status Date o f Status Description Data Source(s) Unknown Unknown Problem [facility] ([facility] [place] Encounters Encounter Providers Location Date Indications Data Source(s ) Outpatient [id number] [facility] [address] 06/08/2021 12:00:00 AM EDT eCW1 ([facility]) Outpatient [facility] 05/29/2021 12:00:00 AM EDT eCW1 ([facility]) Outpatient 05/13/2021 03:30:54 PM EDT - 021 03:58:29 PM EDT [facility] ([facility]) Unknown [id number] [facility] [address] 05/10/2021 12:00:00 AM EDT eCW1 ([facility]) Outpatient [facility] 05/03/2021 12:00:00 AM EDT eCW1 ([facility]) Outpatient [facility] 05/01/2021 12:00:00 AM EDT eCW1 ([facility]) Vance Noonan MD: [address] [address], [place] [address], Ph. Attender: Vance Noonan MD PA - [facility] - Main Office 04/30/2021 12:00:00 AM EDT KENYA ([facility]) Outpatient [facility] 04/18/2021 12:00:00 AM EDT eCW1 ([facility]) Outpatient [facility] 04/17/2021 12:00:00 AM EDT eCW1 ([facility]) Outpatient Attender: Mainor Regalado 04/13/2021 10:15:00 AM EDT [facility] Admission cancelled. Disregard status an d admitted date. Outpatient [facility] 03/29/2021 12:00:00 AM EDT eCW1 ([facility]) Outpatient [facility] 03/23/2021 12:00:00 AM EDT eCW1 ([facility]) Emergency Attender: PATTI Gomez: Joan Reyes PA-C EMERGENCY ROOM-ER 03/22/2021 01:04:00 PM EDT - 03/22/2021 02:52:[address] [facility] Patient discharged. Outpatient [facility] 03/22/2021 12:00:00 AM EDT eCW1 ([facility]) Outpatient Attender: Mateus MARTIN 03/16/2021 02:33:[address] [facility] Outpatient Attender: Mainor Regalado 03/16/2021 11:51:[address] [facility] Outpatient [facility] 03/16/2021 12:00:00 AM EDT eCW1 ([facility]) Outpatient Attender: Mainor Regalado 03/09/2021 11:54:[address] [facility] Outpatient Attender: Mainor Regalado 03/01/2021 12:10:[address] [facility] Outpatient Attender: Mainor Regalado 02/22/2021 10:34:[address] [facility] Outpatient Attender: Mainor Regalado 02/15/2021 02:05:[address] [facility] Outpatient Attender: Mainor Regalado 02/08/2021 02:12:[address] [facility] Outpatient Attender: Mainor Regalado 02/01/2021 02:18:[address] [facility] Outpatient Attender: Mainor Regalado 01/18/2021 05:39:[address] [facility] Outpatient Attender: Mainor Regalado 01/04/2021 01:54:[address] [facility] Outpatient Attender: Mainor Regalado 12/28/2020 03:00:[address] [facility] Outpatient Attender: Mainor Regalado 12/21/2020 04:03:[address] [facility] Outpatient Attender: Mainor Regalado 12/07/2020 03:00:[address] [facility] Outpatient Attender: Mainor RegaladoAttender: MAINOR REGALADO 11/30/2020 04:00:[address] [facility] Outpatient Attender: Nani BOTELLOP-C 11/23/2020 03:11:[address] [facility] Outpatient Attender: MAINOR REGALADO 11/23/2020 02:12:[address] [facility] Outpatient [facility] 11/23/2020 12:00:00 AM EDT eCW1 ([facility]) Outpatient Attender: MAINOR REGALADO 11/16/2020 03:09:[address] [facility] Outpatient Attender: MAINOR REGALADO 11/09/2020 01:51:[address] [facility] Outpatient Attender: NANCY LOW 10/18/2020 02:00:00 PM [facility] Outpatient [facility] 10/17/2020 12:00:00 AM EST eCW1 ([facility]) Outpatient Attender: ADITI CORTES NP 10/03/2020 04: 00:00 PM [facility] (PN Proc 45) Pain Procedure 45 [address] [place] [address] 09/04/2020 12:00:00 AM EST eCW1 ([facility]) Unknown [id number] [facility] [address] 09/01/2020 12:00:00 AM EST eCW1 ([facility]) Outpatient Attender: ADITI CORTES NP 08/22/2020 01: 00:00 PM [facility] Outpatient [address] [facility] [address] 08/09/2020 12:00:00 AM EST eCW1 ([facility]) Outpatient Attender: NANCY LOW 07/25/2020 01:00:00 PM [facility] Outpatient [id number] [facility] [place] [address] 07/10/2020 12:00:00 AM EST eCW1 ([facility]) Outpatient Attender: NANCY LOW 06/20/2020 01:00:00 PM [facility] Outpatient Attender: EBONY Gomez: BENNY CALLE EY [id number] 06/01/2020 12:00:00 AM EDT - 06/01/2020 07:44:23 AM EDT Concussion with loss of consciousness of 30 minutes or less, initial encounter [facility] Concussion with loss of consciousness of 30 minutes or less, initial encounter Outpatient Attender: NANCY LOW 05/30/2020 04:00:[address] [facility] Outpatient Attender: NANCY LOW 05/24/2020 04:00:[address] [facility] Outpatient Attender: NANCY LOW 05/10/2020 10:00:[address] [facility] Outpatient Attender: Keely Reyes PA-C 05/05/2020 02:57 :[address] [facility] Outpatient [facility] 05/05/2020 12:00:00 AM EDT eCW1 ([facility]) Outpatient [facility] 05/05/2020 12:00:00 AM EDT eCW1 ([facility]) Outpatient Attender: MAINOR REGALADO 05/04/2020 01:49:[address] [facility] Outpatient Attender: BENNY ORTIZ PA-C 05/01/2020 08:46:[address] [facility] Outpatient Attender: AURELIANO HAMLIN 04/30/2020 09:30:[address] [facility] Outpatient Attender: MAINOR REGALADO 04/24/2020 01:50:[address] [facility] Outpatient Attender: MAINOR REGALADO 04/21/2020 03:00:[address] [facility] Outpatient Attender: MAINOR REGALADO 04/03/2020 01:53:[address] [facility] Outpatient Attender: MAINOR REGALADO 03/27/2020 01:55:[address] [facility] Outpatient Attender: MAINOR REGALADO 03/20/2020 02:00:[address] [facility] Outpatient Attender: MAINOR REGALADO 03/13/2020 01:53:[address] [facility] Outpatient Attender: Keely Reyes PA-C 03/08/2020 12:48 :[address] [facility] Outpatient Attender: MAINOR REGALADO 03/06/2020 02:00:[address] [facility] Outpatient Attender: MAINOR REGALADO 02/28/2020 01:00:[address] [facility] Outpatient Attender: BENNY ORTIZ PA-C 02/22/2020 11:00:[address] [facility] Outpatient Attender: LINDA COSTELLO 02/17/2020 01:00:[address] [facility] Outpatient Attender: LINDA COSTELLO 02/10/2020 01:00:[address] [facility] Outpatient Attender: LINDA COSTELLO 02/03/2020 01:00:[address] [facility] Outpatient Attender: LINDA COSTELLO 01/27/2020 01:29:[address] [facility] Outpatient Attender: LINDA COSTELLO 01/20/2020 01:30:[address] [facility] Outpatient Attender: LINDA COSTELLO 01/14/2020 03:00:[address] [facility] Outpatient Attender: Keely JEFFERYCReferrer: Keely Reyes PA-C EMERGENCY ROOM-LAB 12/06/2019 01:40:00 PM EDT - 12/06/2019 01:40:[address] [facility] Outpatient Attender: Keely STROUD-Raji 12/06/2019 01:00 :[address] [facility] Outpatient Attender: LIVIA BRITTON 11/29/2019 01:00:00 PM [facility] Emergency Attender: YAKOV FLORES PAReferrer: Keely Reyes PA-C 11/15/2019 08:30:00 PM [facility] - 11/15/2019 09:08:[address] [facility] Patient discharged. Outpatient Attender: Keeyl Lopezr: Keely Reyes PA-C EMERGENCY ROOM-LAB REF 11/09/2019 10:32:00 AM ED - 11/09/2019 10:32:00 AM [facility] Outpatient Attender: Keely Reyes PA-C 11/09/2019 10:00 :[address] [facility] Outpatient Attender: LIVIA BRITTON 11/01/2019 02:00:00 PM [facility] Outpatient Attender: Keely STROUD-C 10/11/2019 11:00 :00 AM [facility] Outpatient Attender: LIVIA BRITTON 10/04/2019 02:00:00 PM [facility] Outpatient Attender: RAYSHAWN WATT 09/06/2019 02:18:00 PM [facility] Outpatient Attender: RAYSHAWN WATT 08/02/2019 02:17:00 PM [facility] Outpatient Attender: RAYSHAWN WATT 07/05/2019 03:05:00 PM [facility] Outpatient Attender: AURELIANO HAMLIN 06/11/2019 10:58:[address] [facility] Emergency Attender: YAKOV PEREZttender: Mylene STROUD EMERGENCY ROOM-ER 01/07/2019 07:29:00 PM EDT - 01/07/2019 10:02:00 PM EDT [facility] Patient discharged. Immunizations Vaccine Date Status Description Data Source(s) COVID-19 VACCINE Moderna 12/13/2020 12:00:00 AM EDT completed [place] Vaccine Series Complete: YESThis Data wa s Submitted to [facility] Via [employer]. COVID-19 VACCINE Moderna 11/15/2020 12:00:00 AM EDT completed [place] Vaccine Series Complete: NOThis Data was Submitted to [facility] [employer]. Medications Medication Brand Name Start Date Product Form Dose Route Admi nistrative Instructions Pharmacy Instructions Status Indications Reaction Description Data Source(s) 350 mg 06/16/2021 12:00:00 AM EDT tablet 10 TAKE ONE TABLET BY MOUTH EVERY 8 HOURS NEEDED MAXIMUM DAILY DOSE = 2 TAKE ONE TABLET BY MOUTH EVERY 8 HOURS A S NEEDED MAXIMUM DAILY DOSE = 2 SOLD: 06/16/2021 [facility] 20 mg 03/22/2021 12:00:00 AM EDT tablet 12 TAKE THREE TABLETS BY MOUTH EVERY DAY TAKE THREE TABLETS BY MOUTH EVERY DAY SOLD: 03/22/2021 [facility] Fluticasone propionate 0.05 MG/ACTUAT Metered Dose Jaya al [place] 50 mcg/actuation FLUTICASONE PROPIONATE 03/17/2021 12:00:00 AM [...] activ e Cetirizine HCl 10 MG eCW1 ([facility]) Flonase Allergy Relief 50 MCG/ACT Flonase Allergy Relief 50 MCG/ACT 03/16/2021 12:00:00 AM EDT 1.0 {spray_in_each_nostril} acti ve Flonase Allergy Relief 50 MCG/ACT eCW1 ([facility] ronnie) cetirizine hydrochloride 10 MG Oral Tablet Cetirizine HCl 10 MG Cetirizine HCl 10 MG 03/16/2021 12:00:00 AM EDT 1.0 {tablet} activ e Cetirizine HCl 10 MG eCW1 ([facility]) Flonase Allergy Relief 50 MCG/ACT Flonase Allergy Relief 50 MCG/ACT 03/16/2021 12:00:00 AM EDT 1.0 {spray_in_each_nostril} acti ve Flonase Allergy Relief 50 MCG/ACT eCW1 ([facility]) Flonase Allergy Relief 50 MCG/ACT Flonase Allergy Relief 50 MCG/ACT 03/16/2021 12:00:00 AM EDT 1.0 {spray_in_each_nostril} acti ve Flonase Allergy Relief 50 MCG/ACT eCW1 ([facility]) Flonase Allergy Relief 50 MCG/ACT Flonase Allergy Relief 50 MCG/ACT 03/16/2021 12:00:00 AM EDT 1.0 {spray_in_each_nostril} acti ve Flonase Allergy Relief 50 MCG/ACT eCW1 ([facility]) cetirizine hydrochloride 10 MG Oral Tablet Cetirizine HCl 10 MG Cetirizine HCl 10 MG 03/16/2021 12:00:00 AM EDT 1.0 {tablet} activ e Cetirizine HCl 10 MG eCW1 ([facility] ronnie) cetirizine hydrochloride 10 MG Oral Tablet Cetirizine HCl 10 MG Cetirizine HCl 10 MG 03/16/2021 12:00:00 AM EDT 1.0 {tablet} activ e Cetirizine HCl 10 MG eCW1 ([facility]) cetirizine hydrochloride 10 MG Oral Tablet Cetirizine HCl 10 MG Cetirizine HCl 10 MG 03/16/2021 12:00:00 AM EDT 1.0 {tablet} activ e Cetirizine HCl 10 MG eCW1 ([facility]) cetirizine hydrochloride 10 MG Oral Tablet Cetirizine HCl 10 MG Cetirizine HCl 10 MG 03/16/2021 12:00:00 AM EDT 1.0 {tablet} activ e Cetirizine HCl 10 MG eCW1 ([facility] ronnie) Flonase Allergy Relief 50 MCG/ACT Flonase Allergy Relief 50 MCG/ACT 03/16/2021 12:00:00 AM EDT 1.0 {spray_in_each_nostril} acti ve Flonase Allergy Relief 50 MCG/ACT eCW1 ([facility] ronnie) cetirizine hydrochloride 10 MG Oral Tablet Cetirizine HCl 10 MG Cetirizine HCl 10 MG 03/16/2021 12:00:00 AM EDT 1.0 {tablet} activ e Cetirizine HCl 10 MG eCW1 ([facility] ronnie) cetirizine hydrochloride 10 MG Oral Tablet Cetirizine HCl 10 MG Cetirizine HCl 10 MG 03/16/2021 12:00:00 AM EDT 1.0 {tablet} activ e Cetirizine HCl 10 MG eCW1 ([facility] ronnie) Flonase Allergy Relief 50 MCG/ACT Flonase Allergy Relief 50 MCG/ACT 03/16/2021 12:00:00 AM EDT 1.0 {spray_in_each_nostril} acti ve Flonase Allergy Relief 50 MCG/ACT eCW1 ([facility] ronnie) Flonase Allergy Relief 50 MCG/ACT Flonase Allergy Relief 50 MCG/ACT 03/16/2021 12:00:00 AM EDT 1.0 {spray_in_each_nostril} acti ve Flonase Allergy Relief 50 MCG/ACT eCW1 ([facility] ronnie) cetirizine hydrochloride 10 MG Oral Tablet Cetirizine HCl 10 MG Cetirizine HCl 10 MG 03/16/2021 12:00:00 AM EDT 1.0 {tablet} activ e Cetirizine HCl 10 MG eCW1 ([facility] ronnie) Flonase Allergy Relief 50 MCG/ACT Flonase Allergy Relief 50 MCG/ACT 03/16/2021 12:00:00 AM EDT 1.0 {spray_in_each_nostril} acti ve Flonase Allergy Relief 50 MCG/ACT eCW1 ([facility]) Flonase Allergy Relief 50 MCG/ACT Flonase Allergy Relief 50 MCG/ACT 03/16/2021 12:00:00 AM EDT 1.0 {spray_in_each_nostril} acti ve Flonase Allergy Relief 50 MCG/ACT eCW1 ([facility] ronnie) Clonidine Hydrochloride 0.2 MG Oral Tablet CLONIDINE HCL 08/23/2020 12:00:00 AM EST tablet 30 TAKE ONE TABLET BY MOUTH TAKE ONE TABLET BY MOUTH EVERY DAY SOLD: 09/08/2020 [facility] Escitalopram 20 MG Oral Tablet ESCITALOPRAM OXALATE 08/23/2020 1 2:00:00 AM EST tablet 45 TAKE 1 AND 1/2 TABLETS BY MOUTH ONCE DAILY TAKE 1 AND 1/2 TABLETS BY MOUTH ONCE DAILY SOLD: 09/08/2020 [facility] Escitalopram 20 MG Oral Tablet ESCITALOPRAM OXALATE 08/23/2020 1 2:00:00 AM EST tablet 45 TAKE 1 AND 1/2 TABLETS BY MOUTH ONCE DAILY TAKE 1 AND 1/2 TABLETS BY MOUTH ONCE DAILY SOLD: 12/02/2020 [facility] fluticasone propionate 50 mcg/actuation nasal spray,suspension SPRAY ONE SPRAY IN ONE NOSTRIL EVERY DAY [id number] completed fluticasone propionate 0.05 MG/ACTUAT Metered Dose Nasal [place] KENYA ([facility]) Clonidine Hydrochloride 0.2 MG Oral Tabl et clonidine HCl 0.2 mg tablet TAKE ONE TABLET BY MOUTH EVERY DAY clonidine HCl 0.2 mg tablet TAKE ONE TAB LET BY MOUTH EVERY DAY completed clonidine hy drochloride 0.2 MG Oral Tablet KENYA ([facility]) Prednisone 20 MG Oral Tablet prednisone 20 mg tablet TAKE THREE TABLETS BY MOUTH EVERY DAY prednisone 20 mg tablet TAKE THREE TABLETS BY MOUTH EVERY DAY completed prednisone 20 MG Oral Tab let KENYA ([facility]) Escitalopram 20 MG Oral Tablet escitalop bruce 20 mg tablet TAKE 1 AND 1/2 TABLETS BY MOUTH ONCE DAILY escitalopram 20 mg tablet TAKE 1 AND 1/2 TABLETS BY MOUTH ONCE DAILY completed escitalopra m 20 MG Oral Tablet KENYA ([facility]) Escitalopram 10 MG Oral Tablet escitalop bruce 10 mg tablet TAKE ONE TABLET BY MOUTH EVERY DAY escitalopram 10 mg tablet TAKE ONE TABLET BY MOUTH EVERY DAY completed escitalopram 1 0 MG Oral Tablet KENYA ([facility]) cetirizine hydrochloride 10 MG Oral Tabl et cetirizine 10 mg tablet TAKE ONE TABLET BY MOUTH EVERY DAY cetirizine 10 mg tablet TAKE ONE TABLET BY MOUTH EVERY DAY completed cetirizine hydro chloride 10 MG Oral Tablet KENYA ([facility]) Insurance Providers Payer name Policy type / Coverage type Policy ID Covered constitution party ID Covered constitution party's relationship to peterson Policy Peterson Plan Information [facility] Part B [id number] Self [id number] [facility] Part B [id number] Family Dependent [id number] MVP Preferred (Hmo) Health Maintenance Organization (HMO) [id number] Family Dependent [id number] [facility] Part B [id number] Family Dependent [id number] [facility] () Workers Compensation [id number] Self [id number] [facility] () Workers Compensation [id number] Self [facility] Trad/MX Commercial [id number] Self [id number] [facility] [id number] Self [id number] WORKERS COMPENSATION GENERIC W [id number] Empl [id number] NATIONWIDE INS WORK COMP [id number] GJ SP [id number] GJ WORKERS COMPENSATION GENERIC W [id number] Empl [id number] Blue Cross Blue Shield P [id number] SELF [id number] BCBS OF [place] [id number] S [id number] [id number] [facility] [employer]. [id number] Self [id number] OTHER NO FAULT CASE# [id number] S CASE# [id number] NATIONWIDE CASE# [id number] S CASE # [id number] NTIONWIDE INSURANCE CASE# [id number] S CASE# [id number] OTHER NO FAULT NATIONWIDE CASE# [id number] S CASE# [id number] EXCELLUS BC-BS PPO [id number] SP [id number] EXCELLUS BCBS B [id number] S VYA SELF PAY ONLY [id number] SP VYA [id number] EMEDNY [id number] SP [id number] NATIONWIDE [id number] 18 [id number] BCBS [place] WATN PPO 302/307 [id number] SP [id number] NATIONWIDE INS WORK COMP [id number] SP [id number] NATIONWIDE INS WORK COMP [id number] GJ SP [id number] GJ [facility] [id number] SP [id number] UNK [id number] SP [id number] [facility] CHILDREN HOME O [id number] S [id number] OTHER WORKERS COMPENSATI O [id number] O [id number] [facility] CHILDREN JANEE [id number] SP [id number] [facility] CHILDREN JANEE [id number] SP [id number] Workers Compensation Workers Compensation [id number] Self [id number] DO Not Use (Now #114) Commercial [id number] Family Dependent [id number] Blue Shield Medigap Part B [id number] Family Dependent [id number] Workers Compensation Workers Compensation [id number] Self [id number] DO Not Use (Now #114) Commercial [id number] Family Dependent [id number] Workers Compensation Workers Compensation [id number] [id number] Self [id number] DO Not Use (Now #114) Commercial [id number] Family Dependent [id number] [facility] MUTUAL WORKER COMP [id number] SP [id number] BCBS [facility] 302/307 [id number] SP [id number] BCBS [facility] 280/[id number] FA2 [id number] BCBS/Excellus Commercial [id number] Family Dependent [id number] BCBS ..[id number] Blue Cross/Bl ue Shield .[id number] Workers Compensation Workers Compensation [id number] [id number] Self [id number] DO Not Use (Now #114) Commercial [id number] [id number] Family Dependent [id number] Blue Shield Commercial [id number] [id number] Family Dependent [id number] BCBS/Excellus Commercial [id number]. [id number] Family Dependent [id number] EXCELLUS BCBS B [id number] O [id number] [id number] BCBS/Excellus Commercial [id number] Self [id number] [facility] [id number] SP [id number] Workers Compensation Workers Compensation [id number] [id number] [id number] Self [id number] [employer] EasyProperty [id number] Family Dependent [id number] [facility] INSURANCE FUND [id number] SP [id number] BCBS [facility] 280/[id number] FA2 [id number] STATE INSURANCE FUND O [id number] S [id number] BLUE CROSS BLUE SHIELD -O/P [id number] Workers Compensation Workers Compensation [id number] Self [employer] Commercial [id number] Family Dependent Blue Shield EasyProperty [id number] Self [id number] STATE INSURANCE FUND O [id number] C [id number] SELF PAY O UNAVAILABLE C UNAVAILA BLE Workers Compensation Workers Compensation [id number] Self Workers Compensation Workers Compensation [id number] Self Excellus Blue Cross Commercial [id number] Self Workers Compensation Workers Compensation [id number] Self Workers Compensation Workers Compensation [id number] Self Workers Compensation Workers Compensation [id number] Self Workers Compensation Workers Compensation [id number] Self Workers Compensation Workers Compensation [id number] Self EXCELLUS BCBS B [id number] D [id number] [id number] Workers Compensation Workers Compensation [id number] Self Workers Compensation Workers Compensation [id number] Self Workers Compensation Workers Compensation [id number] Self BCBS ANTHEM MARLEN 160/660 [id number] SP [id number] PGBA [place] [id number] HU2 [id number] EXCELLUS BCBS S UNAVAILABLE [id number] C UNAV AILABLE BLUE RAPIDS CROSS [facility] P [id number] C [id number] PGBA [place] S [id number] C [id number] UN COMMUNITY PLAN MCDO [id number] SP [id number] UN COMMUNITY PLAN MCDO [id number] SP [id number] BENJAMIN SERRANO WORKER COMP SP OTHER W.C.EMPLOYER [id number] SP [id number] [facility] MEDICAID [id number] S [id number] [facility] [id number] S [id number] [place] [id number] SP [id number] M MEDICAID [id number] S [id number] MEDICAID [id number] S [id number] BCBS OF [place] [id number] S [id number] BCBS OF [place] WATN 306/806 [id number] SP [id number] EMEDNY [id number] SP [id number] [facility] [id number] S [id number] NATIONWIDE INSURANCE CASE# [id number] S CASE# [id number] Problems, Conditions, and Diagnoses Code Display Name Description Problem Type Effective Dates Data Source(s) Z53.29 Procedure and treatment not carried out because of patient's decision for other reasons PROC/TRTMT NOT CRD OUT BEC PT DECISION FOR OTH REASONS Diagn osis 04/13/2021 10:15:[address] [facility] Z87.891 Personal history of nicotine dependence PERSONAL HISTORY OF NICOTINE DEPENDENCE Diagnosis 03/22/2021 01:04:00 PM [facility] R13.19 Other dysphagia OTHER DYSPHAGIA Diagnosis 03/22/2021 01:0 4:[address] 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 R09.82 Postnasal drip POSTNASAL DRIP Diagnosis 03/16/2021 02:33: [address] [facility] J02.9 Acute pharyngitis, unspecified ACUTE PHARYNGITIS, UNSP ECIFIED Diagnosis 03/16/2021 02:33:[address] [facility] F43.10 Post-traumatic stress disorder, unspecif ied POST-TRAUMATIC STRESS DISORDER, UNSPECIFIED Diagnosis 03/16/2021 11:51:00 AM [facility]ita M79.89 Other specified soft tissue disorders OT HER SPECIFIED SOFT TISSUE DISORDERS Diagnosis 11/23/2020 03:11:00 PM [facility] T80.69XA Other serum reaction due to other serum, initial encounter OTHER SERUM REACTION DUE TO OTHER SERUM, INITIAL E Diagnosis 11/23/2020 03:11:[address] [facility] L29.9 Pruritus, unspecified PRURITUS, UNSPECIFIED Diagnosis 11/23/2020 03:11:[address] [facility] F43.22 Adjustment disorder with anxiety ADJUSTMENT DISO RDER WITH ANXIETY Diagnosis 10/18/2020 02:00:00 PM [facility] F43.23 Adjustment disorder with mixed anxiety a nd depressed mood Adjustment disorder with mixed anxiety and depressed mood Diagnosis 020 07:42:47 [facility] F43.10 Post-traumatic stress disorder, unspecif ied Post-traumatic stress disorder, unspecified Diagnosis 06/01/2020 07:42:[address] [facility] S06.0X1A Concussion with loss of cons ciousness of 30 minutes or less, initial encounter Concussion with loss of consciousness of 30 minutes or less, initial encounter Diagnosis 06/01/2020 07:42:47 AM EDT [facility] G89.29 [id number] Other chronic pain Problem 04/18/2021 12:00: 00 AM EDT W1 ([facility]) G89.29 Chronic pain Other chronic pain Problem 07/10/2020 12:0 0:00 AM EST W1 ([facility]) Surgeries/Procedures Procedure Description Date Indications Data Source(s) Unclassified drugs 09/04/2020 12:00:00 AM EST eCW1 ([facility]) Completion of procedural visit when meets criteria 09/04/2020 12:00:00 AM EST eCW1 ([facility]) Pain Procedure Log 07/10/2020 12:00:00 AM EST eCW1 ([facility]) Results ID Date Data Source [id number] 06/11/2021 11:10:00 AM EDT [facility] Name Value Range Interpretation Code Description Data Linda rce(s) Supporting Document(s) SARS-CoV-2 (COVID-19) RNA [Presence] in Respiratory specimen by CHRISTINA with probe detection Not Detected [facility] This lab was ordered by [facility] and reported by [facility]. ID Date Data Source [id number] 05/13/2021 03:45:00 PM EDT [facility] Name Value Range Interpretation Code Description Data Linda rce(s) Supporting Document(s) SARS-CoV-2 RNA Resp Ql CHRISTINA+probe NOT DETECTED [facility] This lab was ordered by [facility] and reported by [facility]. ID Date Data Source [id number] 03/22/2021 03:38:00 PM EDT [facility] l Patient: BETTINA ZAPATA n Report - [facility].VisitID: [id number] [place] [address] [phone], FRegistration Date/Time: 03/22/2021 12:48 Weight:79.3 kg (S). Height/Length:66 inches (S). 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 Medications:None. Allergies:No Known Drug Allergy. FAMILY HISTORYNegative. No significant family medical history. (Electronically signed by Marion Silva 03/22/2021 15:32) Name Value Range Interpretation Code Description Data Linda rce(s) Supporting Document(s) ID Date Data Source [id number] 03/22/2021 03:35:00 PM EDT [facility] Patient: BETTNIA ZAPATA n [facility].VisitID: [id number] [place] [address] [phone], FRegistration Date/Time: 03/22/2021 12:48 Weight:79.3 kg (S). Height/Length:66 inches (S). 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 Medications:None. Allergies:No Known Drug Allergy. FAMILY HISTORYNegative. No significant family medical history. (Electronically signed by Marion Silva 03/22/2021 15:24) Name Value Range Interpretation Code Description Data Linda rce(s) Supporting Document(s) ID Date Data Source [id number] 03/22/2021 02:29:00 PM EDT [facility] [...] rce(s) Supporting Document(s) ID Date Data Source [id number] 03/22/2021 01:36:00 PM EDT [facility] TSYSORDER [id number] Name Value Range Interpretation Code Description Data Linda rce(s) Supporting Document(s) HCG URINE NEGATIVE NEGATIVE [facility] ID Date Data Source [id number] 03/22/2021 02:10:00 PM EDT [facility] TSYSORDER [id number] Name Value Range Interpretation Code Description Data Linda rce(s) Supporting Document(s) FREE T4 1.1 ng/dL 0.76-1.46 [facility] ID Date Data Source [id number] 03/22/2021 02:10:00 PM EDT [facility] TSYSORDER [id number] Name Value Range Interpretation Code Description Data Linda rce(s) Supporting Document(s) TSH 1.510 uIU/mL 0.360-3.740 [facility] ID Date Data Source [id number] 03/22/2021 01:54:00 PM EDT [facility] TSYSORDER [id number] Name Value Range Interpretation Code Description Data Linda rce(s) Supporting Document(s) MAGNESIUM 2.0 mg/dL 1.8-2.4 [facility] ID Date Data Source [id number] 03/22/2021 01:54:00 PM EDT [facility] TSYSORDER [id number] Name Value Range Interpretation Code Description Data Linda rce(s) Supporting Document(s) TROPONIN-HIGH SENSITIVITY 4.6 ng/L 0-60.4 [facility] ID Date Data Source [id number] 03/22/2021 01:54:00 PM EDT [facility] TSYSORDER [id number] Name Value Range Interpretation Code Description Data Linda rce(s) Supporting Document(s) LIPASE 153 U/L 73-393 [facility] ID Date Data Source [id number] 03/22/2021 01:54:00 PM EDT [facility] TSYSORDER [id number] Name Value Range Interpretation Code Description Data Linda rce(s) Supporting Document(s) GLUCOSE 84 mg/dL 74-106 [facility] BLOOD UREA NITROGEN 7 mg/dL 7-18 [facility] ital CREATININE 0.71 mg/dL 0.6-1.0 [facility] SODIUM 140 mmol/L 136-145 [facility] POTASSIUM 3.8 mmol/L 3.5-5.1 [facility] CHLORIDE 105 mmol/L 98-107 [facility] CO2 23 mmol/L 21-32 [facility] CALCIUM 8.5 mg/dL 8.5-10.1 [facility] ANION GAP 12.0 mmol/L 5-12 [facility] GLOMERULAR FILTRATION RATE >90 mL/min [facility] GFR IS CALCULATED IN mL/min/1.73m2 PEPITO L FUNCTION: >90MILDLY DECREASED: 60-89MILDY TO MODERATELY DECREASED: 45-59 MODERATELY TO SEVERELY DECREASED: 30-44SEVERELY DECREASED: 15-29RENAL FAILURE: <15 AST 14 U/L 15-37 L [facility] ALT 24 U/L 12-78 [facility] ALKALINE PHOSPHATASE 42 U/L 46-116 L [facility] TOTAL BILIRUBIN 0.5 mg/dL 0.2-1.0 [facility] TOTAL PROTEIN 7.0 g/dl 6.4-8.2 [facility] ALBUMIN 3.4 gm/dL 3.4-5.0 [facility] ID Date Data Source [id number] 03/22/2021 01:32:00 PM EDT [facility] TSYSORDER [id number] Name Value Range Interpretation Code Description Data Linda rce(s) Supporting Document(s) WHITE BLOOD COUNT 7.1 K/mm3 4.0-10.0 [facility] al RED BLOOD COUNT 4.30 M/mm3 4.00-5.50 [facility] HEMOGLOBIN 10.6 gm/dL 12.0-16.0 L [facility] HEMATOCRIT 32.6 % 36.0-48.8 L [facility] MEAN CELL VOLUME 75.8 fl 80-96 L [facility] MEAN CORPUSCULAR HEMOGLOBIN 24.7 pg 27.0-31.0 L [facility] MEAN CORPUSCULAR HGB CONC 32.5 g/dl 32.0-36.0 [facility] RED CELL DISTRIBUTION WIDTH 22.1 % 10.0-14.5 H [facility] PLATELET COUNT 272 K/mm3 172-450 [facility] MEAN PLATELET VOLUME 10.3 fl 9.0-13.[address] [facility] pital GRAN % 58.9 % 50-80.0 [facility] IG% 0.0 % 0.0-0.2 [facility] LYMPH % 29.2 % 25.0-50.0 [facility] MONO % 8.5 % 2.0-10.0 [facility] EOS % 3.1 % 0-5.0 [facility] BASO % 0.3 % 0.0-2.0 [facility] GRAN # 4.2 K/mm3 2.0-8.00 [facility] IG# 0.0 K/mm3 0.0-0.2 [facility] LYMPH # 2.1 K/mm3 1.0-5.0 [facility] MONO # 0.6 K/mm3 0.10-1.20 [facility] EOS # 0.2 K/mm3 0.0-0.5 [facility] BASO # 0.0 K/mm3 0.0-0.2 [facility] ID Date Data Source [id number] 01/23/2021 07:28:00 PM EDT [facility] Name Value Range Interpretation Code Description Data Linda rce(s) Supporting Document(s) SARS coronavirus 2 RNA [Presence] in Res piratory specimen by CHRISTINA with probe detection NEGATIVE [facility] This lab was ordered by [facility] a nd reported by [facility]. ID Date Data Source [id number] 08/30/2020 11:05:00 AM EST [facility] Name Value Range Interpretation Code Description Data Linda rce(s) Supporting Document(s) SARS coronavirus 2 RNA Not Detected [facility] This lab was ordered by [facility] and reported by [facility]. ID Date Data Source [id number] 06/09/2020 04:05:31 PM EDT [facility] Name Value Range Interpretation Code Description Data Linda rce(s) Supporting Document(s) Progress Note [facility] BSGZQs4fLkHOAsAc62/OYQuyUSQcq5OkYWinSMe8XUwbEHDgC2VoKIE8oO2nREH7VNlSMyQlDtJlQCLi lbm [file] ICAgICAgICAgICAgICAgICAgICAgICAgICAgICAgICAgICAgICAgICAgICAgICAgICAgICAgICAgICAg ICAgICAgICAgDQogICAgICAgICAgICAgICAgICAgIC AgICAgICAgICAgICAgICAgICAgICAgICAgICAgICAgICAgICAgICAgICAgICAgICAgICAgICAgICAgIC AgICAgICAgICAgICAgICAgICAgDQogICAgICAgICAgICAgICAgICAgICAgICAgICAgICAgICAgICAgIC AgICAgICAgICAgICAgICAgICAgICAgICAgICAgICAg ICAgICAgICAgICAgICAgICAgICAgICAgICAgICAgDQogICAgICAgICAgICAgICAgICAgICAgICAgICAg ICAgICAgICAgICAgICAgICAgICAgICAgICAgICAgICAgICAgICAgICAgICAgICAgICAgICAgICAgICAg ICAgICAgICAgICAgDQogICAgICAgICAgICAgICAgIC AgICAgICAgICAgICAgICAgICAgICAgICAgICAgICAgICAgICAgICAgICAgICAgICAgICAgICAgICAgIC AgICAgICAgICAgICAgICAgICAgICAgDQogICAgICAgICAgICAgICAgICAgICAgICAgICAgICAgICAgIC AgICAgICAgICAgICAgICAgICAgICAgICAgICAgICAg ICAgICAgICAgICAgICAgICAgICAgICAgICAgICAgICAgDQogICAgICAgICAgICAgICAgICAgICAgICAg ICAgICAgICAgICAgICAgICAgICAgICAgICAgICAgICAgICAgICAgICAgICAgICAgICAgICAgICAgICAg ICAgICAgICAgICAgICAgDQogICAgICAgICAgICAgIC AgICAgICAgICAgICAgICAgICAgICAgICAgICAgICAgICAgICAgICAgICAgICAgICAgICAgICAgICAgIC AgICAgICAgICAgICAgICAgICAgICAgICAgDQogICAgICAgICAgICAgICAgICAgICAgICAgICAgICAgIC AgICAgICAgICAgICAgICAgICAgICAgICAgICAgICAg ICAgICAgICAgICAgICAgICAgICAgICAgICAgICAgICAgICAgDQogICAgICAgICAgICAgICAgICAgICAg ICAgICAgICAgICAgICAgICAgICAgICAgICAgICAgICAgICAgICAgICAgICAgICAgICAgICAgICAgICAg RETqZNRiBICoORZwZPDqJTVeZVb5M8fnKDAsBREgXL 8rJTh0Sk6+GZnFXbVePAV8ptWdmI0DTZ2no8WoLNoiRPHoo0LlYNw0IX3WVQSfBChtFK2WMPuzyt4DUI DlWZDwuCSCo8nqWkEdZUY7DOHlMcybFL7WBOYfV3uhgoOqEGFtHWDSIFmvALTKZTqbAWROIG6VXrHjK5 YulH77FPOZXd7+NDanokTnMvnVXwAoEGPsx7VfCXx8 MQ4AVUVcOblqj7CgGwLeGYOCYRgsVT6CIDO9OLV7FLLrXo4BDAJfY543yiOaUX5TFa5WVwIxOV2lcz7E VuEqIBJbTxiMDoj7VYraMW7UtJVpLKhKhw4yxuDqzlJMs4TecaSbjMIIGI8vaZRVJDZiqvDyv7bjjqnq VAL2VRKltHEqFB3wCa1tHCXmWEFsFwSpDXNIMG2UEF SlUZHpgOFxUUOgQLUFNW7AKXalODM6HEPkhkRdwDKgCQoiNU0OEOGggcJgOdSoOQHWZGy+Ex2ZQX0vd9 QxNRlqWCCgOT3tus2FUNnROgSsJ0X7dLPoX1K9BIbiFq8YNAJdPEBzHaQnKXPWSNsqKU5SKJ6defN8CK 9VkTHuYKNrEVLmoQXdLRu2I04nfQAnOSygQK2ZKYH+ Wilber+Dd2YXAHvHXNzDKKsFqKiUMSCYtWyL8KoV9NMw8UcD9LjCL14iZopgnJoOBxbBQ3IRK9mOLOdYCAP LL4NoNOczJ4yqlRrSbLrXTBOPdMrH73rcXKeLTNlNPRfBHGxYu7RBTXxY9CjrsDzsCtpvqAlSDWqEOQA BQ2VBJiawmQmqOQhgGtqGY83dKmeKL0NSj7SNvOuNZ 5zpz8TtOObPx8TPUFjCu3YWVJvQTImXFMnOUX7QEPvTuTjGSuwARGhWBMcUTA7QRCyIWDtWH6OIyJfNY XcWga8PsOsCTUuLEIusm3CZGSsGKHaOHJ8YGKiZVRoPTLaYZwhFHJyCRVbVCQ4BUBoTFGwHE9XRjUfEA DyKVK9GPGfTDXoCEYnif6SDXEvUWUpNEi8TYSbEPVd NDLbMPuqZWRdPIQ8Vxj5RZMqCUHrAI2DNiZfJGStECk6WHErGXYxXQXsrw1JFJFjRJCnReJ1OPFoEATg PHUcPPmjRTGuODMxPPdxBBOyMBAtSZ1OAsWjWCOfSVS3TDItXGIxVCGfmc5YCYCiPWHzQAC5WJDmQGKj UBYfWMizFDCrCET5OSXaEPOoJNFwPZ3RNpUoWNZiMG U4UBZlFORiPCCijz1YVZMbWBYfVZy6IOLcCEUrNJNfIXwyBOJoJDK3JClgRHIwTQEnEE2YEnHoXGYpBl a0CqzyNORnFRQela0ZMSHvHYMbOmj5LwXqYFNlZTIpHVznUZUpPKM3PWEbIBEoDQGuDF6SAcMaNRHrPe sqNNClSVNdUGPrft8WVLIeOXTzWLKxYOTtKJQxVWPp RIlxJZRcJMV5ZIC2OYTnIKYoQZ6VFgAdRJObOiIyVZuiBSYdYSHziq3SUTNmRTOlSZQ0KYOjYIQmUVWm MUgcHSYyAAQxZQA3UOFoAIFiZS0DOwPfTDsxWQFTRrk9DJvxJ8f9MISlWn4EX6Rwy2SzAtYiJHYDCYix SS0kucTlVERfCx9PS5uDPsv5HFW7D9SkKly7L4F5Qo Q9UNxvWiZtZAldYNunYBP2XJ0uKLebVWC3EFK3NbnfPGY8UXHnVKWqHUR0NtAkXNQ1FBbaVaCkOA2BLt 8DFpT5ZWY2qVGjQf0ISkT5HVkZNrEdLW7IRNc= Procedure Social History Code Duration Value Status Description Data Source(s ) Smoking 06/08/2021 12:00:00 AM EDT Current Smoker completed Curre nt Smoker eCW1 ([facility]) Smoking 03/16/2021 12:00:00 AM EDT Former Smoker completed Former Smoker eCW1 ([facility]) Smoking 03/16/2021 12:00:00 AM EDT Former Smoker completed Former Smoker eCW1 ([facility]) Smoking 03/16/2021 12:00:00 AM EDT Former Smoker completed Former Smoker eCW1 ([facility]) Smoking 03/16/2021 12:00:00 AM EDT Former Smoker completed Former Smoker eCW1 ([facility]) Smoking 03/16/2021 12:00:00 AM EDT Former Smoker completed Former Smoker eCW1 ([facility]) Smoking 03/16/2021 12:00:00 AM EDT Former Smoker completed Former Smoker eCW1 ([facility]) Smoking 03/16/2021 12:00:00 AM EDT Former Smoker completed Former Smoker eCW1 ([facility]) Smoking 03/16/2021 12:00:00 AM EDT Former Smoker completed Former Smoker eCW1 ([facility]) Smoking 03/16/2021 12:00:00 AM EDT Former Smoker completed Former Smoker eCW1 ([facility]) Smoking 11/23/2020 12:00:00 AM EDT Former Smoker completed Former Smoker eCW1 ([facility]) Smoking 09/01/2020 12:00:00 AM EST Current Smoker completed Curre nt Smoker eCW1 ([facility]) Smoking 09/01/2020 12:00:00 AM EST Current Smoker completed Curre nt Smoker eCW1 ([facility]) Smoking 09/01/2020 12:00:00 AM EST Current Smoker completed Curre nt Smoker eCW1 ([facility]) Smoking 08/09/2020 12:00:00 AM EST Current Smoker completed Curre nt Smoker eCW1 ([facility]) Smoking 07/10/2020 12:00:00 AM EST Current Smoker completed Curre nt Smoker eCW1 ([facility]) Smoking 05/05/2020 12:00:00 AM EDT Current Smoker completed Curre nt Smoker eCW1 ([facility]) Smoking 05/05/2020 12:00:00 AM EDT Current Smoker completed Curre nt Smoker eCW1 ([facility]) Smoking 05/05/2020 12:00:00 AM EDT Current Smoker completed Curre nt Smoker eCW1 ([facility]) Vital Signs ID Date Data Source UNK Name Value Range Interpretation Code Description Data Source(s) Systolic blood pressure 111 mm[Hg] 111 mm[Hg] e CW1 ([facility]) Respiratory rate 18 /min 18 /min eCW1 ([facility]) Body temperature 97.9 [degF] 97.9 [degF] eCW1 ( [facility]) Diastolic blood pressure 52 mm[Hg] 52 mm[Hg] eCW1 ([facility]) Body weight 175.6 [lb_av] 175.6 [lb_av] eCW1 ([facility]) Body weight 79.65 kg 79.65 kg eCW1 ([facility]) Body height 65 [in_i] 65 [in_i] eCW1 ([facility]) Body mass index (BMI) [Ratio] 29.22 kg/m2 29.22 kg/m2 eCW1 ([facility]) Heart rate 94 /min 94 /min eCW[facility] Body mass index (BMI) [Ratio] 28.5 kg/m2 28.5 k g/m2 KENYA ([facility]) Body height 66 [in_i] 66 [in_i] KENYA ([facility]) Diastolic blood pressure 73 mm[Hg] 73 mm[Hg] KENYA ([facility]) Systolic blood pressure 119 mm[Hg] 119 mm[Hg] A THENA ([facility]) Body weight 176.8 [lb_av] 176.8 [lb_av] KENYA ([facility]) Body height 65 [in_i] 65 [in_i] eCW1 ([facility]) Body temperature 98.0 [degF] 98.0 [degF] eCW1 ( [facility]) Heart rate 73 /min 73 /min eCW1 ([facility]) Respiratory rate 18 /min 18 /min eCW1 ([facility]) Oxygen saturation in Arterial blood by Pulse oximetry 99 % 99 % eCW1 ([facility]) Body height 65 [in_i] 65 [in_i] eCW1 ([facility]) Body weight 180 [lb_av] 180 [lb_av] eCW1 ([facility]) Body mass index (BMI) [Ratio] 29.95 kg/m2 29.95 kg/m2 eCW1 ([facility]) Body temperature 97.5 [degF] 97.5 [degF] eCW1 ( [facility]) Heart rate 59 /min 59 /min eCW1 ([facility]) Respiratory rate 16 /min 16 /min eCW1 ([facility]) Oxygen saturation in Arterial blood by Pulse oximetry 99 % 99 % eCW1 ([facility]) Body weight 187.6 [lb_av] 187.6 [lb_av] eCW1 ([facility]) Body height 65 [in_i] 65 [in_i] eCW1 ([facility]) Body mass index (BMI) [Ratio] 31.21 kg/m2 31.21 kg/m2 eCW1 ([facility]) Heart rate 75 /min 75 /min eCW1 ([facility]) Respiratory rate 18 /min 18 /min eCW1 ([facility]) Body temperature 97.5 [degF] 97.5 [degF] eCW1 ( [facility]) Systolic blood pressure 116 mm[Hg] 116 mm[Hg] e CW1 ([facility]) Diastolic blood pressure 57 mm[Hg] 57 mm[Hg] eCW1 ([facility]) Body weight 185.2 [lb_av] 185.2 [lb_av] eCW1 ([facility]) Body height 65 [in_i] 65 [in_i] eCW1 ([facility]) Body mass index (BMI) [Ratio] 30.82 kg/m2 30.82 kg/m2 eCW1 ([facility]) Heart rate 77 /min 77 /min eCW1 ([facility]) Respiratory rate 18 /min 18 /min eCW1 ([facility]) Body temperature 98.1 [degF] 98.1 [degF] eCW1 ( [facility]) Systolic blood pressure 112 mm[Hg] 112 mm[Hg] e CW1 ([facility]) Diastolic blood pressure 56 mm[Hg] 56 mm[Hg] eCW1 ([facility]) Diastolic blood pressure 54 mm[Hg] 54 mm[Hg] eCW1 ([facility]) Body weight 182.2 [lb_av] 182.2 [lb_av] eCW1 ([facility]) Body height 65 [in_i] 65 [in_i] eCW1 ([facility]) Body mass index (BMI) [Ratio] 30.32 kg/m2 30.32 kg/m2 eCW1 ([facility]) Heart rate 87 /min 87 /min eCW1 ([facility]) Respiratory rate 18 /min 18 /min eCW1 ([facility]) Body temperature 98.2 [degF] 98.2 [degF] eCW1 ( [facility]) Systolic blood pressure 115 mm[Hg] 115 mm[Hg] e CW1 ([facility]) Body height 65 [in_i] 65 [in_i] eCW1 ([facility]) Body weight 181.0 [lb_av] 181.0 [lb_av] eCW1 ([facility]) Body mass index (BMI) [Ratio] 30.12 kg/m2 30.12 kg/m2 eCW1 ([facility]) Body temperature 98.6 [degF] 98.6 [degF] eCW1 ( [facility]) Respiratory rate 18 /min 18 /min eCW1 ([facility]) Heart rate 86 /min 86 /min eCW1 ([facility]) Oxygen saturation in Arterial blood by Pulse oximetry 99 % 99 % eCW1 ([facility]) Patient Treatment Plan of Care Planned Activity Planned Date Details Description Data Source (s) Flonase Allergy Relief 50 MCG/ACT 03/16/2021 12:00:00 AM EDT eCW1 ([facility]) cetirizine hydrochloride 10 MG Oral Tablet 03/16/2021 12:00:00 AM E DT eCW1 ([facility]) Flonase Allergy Relief 50 MCG/ACT 03/16/2021 12:00:00 AM EDT eCW1 ([facility]) cetirizine hydrochloride 10 MG Oral Tablet 03/16/2021 12:00:00 AM E DT eCW1 ([facility]) Flonase Allergy Relief 50 MCG/ACT 03/16/2021 12:00:00 AM EDT eCW1 ([facility]) cetirizine hydrochloride 10 MG Oral Tablet 03/16/2021 12:00:00 AM E DT eCW1 ([facility]) Flonase Allergy Relief 50 MCG/ACT 03/16/2021 12:00:00 AM EDT eCW1 ([facility]) cetirizine hydrochloride 10 MG Oral Tablet 03/16/2021 12:00:00 AM E DT eCW1 ([facility]) Prednisone 20 MG Oral Tablet KENYA ([facility]) fluticasone propionate 50 mcg/actuation nasal spray,suspension SPRAY ONE SPRAY IN ONE NOSTRIL EVERY DAY KENYA ([facility]) Escitalopram 20 MG Oral Tablet KENYA ([facility]) Escitalopram 10 MG Oral Tablet KENYA ([facility]) Clonidine Hydrochloride 0.2 MG Oral Tablet KENYA ([facility]) cetirizine hydrochloride 10 MG Oral Tablet KENYA ([facility])
--- OUTSIDE RECORDS SUMMARY | 2021-07-02 02:13 | CCD ---
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 [id number] STATE INSURANCE FUND O [id number] C [id number] SELF PAY O UNAVAILABLE C UNAVAILA BLE Workers Compensation Workers Compensation [id number] Self Workers Compensation Workers Compensation [id number] Self Excellus Blue Cross Commercial [id number] Self Workers Compensation Workers Compensation [id number] Self Workers Compensation Workers Compensation [id number] Self Workers Compensation Workers Compensation [id number] Self Workers Compensation Workers Compensation [id number] Self Workers Compensation Workers Compensation [id number] Self EXCELLUS BCBS B [id number] D [id number] [id number] Workers Compensation Workers Compensation [id number] Self Workers Compensation Workers Compensation [id number] Self Workers Compensation Workers Compensation [id number] Self BCBS ANTHEM MARLEN 160/660 [id number] SP [id number] PGBA [place] [id number] [id number] EXCELLUS BCBS S UNAVAILABLE [id number] C UNAV AILABLE [place] CROSS 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 [id number] SP [id number] [facility] MEDICAID [id number] S [id number] [facility] [id number] S [id number] [place] [id number] SP [id number] M MEDICAID [id number] S [id number] MEDICAID [id number] S [id number] BCBS OF [place] [id number] S [id number] [id number] BCBS OF [place] 306/806 [id number] SP [id number] EMEDNY [id number] SP [id number] [facility] [id number] S [id number] NATIONWIDE INSURANCE CASE# [id number] CASE# [id number] Problems, Conditions, and Diagnoses Code Display Name Description Problem Type Effective Dates Data Source(s) Z53.29 Procedure and treatment not carried out because of patient's decision for other reasons PROC/TRTMT NOT CRD OUT BEC PT DECISION FOR OTH REASONS Diagn osis 04/13/2021 10:15:00 AM [facility] Z87.891 Personal history of nicotine dependence PERSONAL HISTORY OF NICOTINE DEPENDENCE Diagnosis 03/22/2021 01:04[facility] [facility] Other dysphagia OTHER DYSPHAGIA Diagnosis 03/22/2021 01:0 4:00 PM [facility] M94.0 Chondrocostal junction syndrome [Tietze] CHONDROCOSTAL JUNCTION SYNDROME [TIETZE] Diagnosis 03/22/2021 01:04:00 PM [facility] l R07.9 Chest pain, unspecified CHEST PAIN, UNSPECIFIED Diagno sis 03/22/2021 01:04:00 PM [facility] R09.82 Postnasal drip POSTNASAL DRIP Diagnosis 03/16/2021 02:33: 00 PM [facility] J02.9 Acute pharyngitis, unspecified ACUTE PHARYNGITIS, UNSP ECIFIED Diagnosis 03/16/2021 02:33:00 PM [facility] F43.10 Post-traumatic stress disorder, unspecif ied POST-TRAUMATIC STRESS DISORDER, UNSPECIFIED Diagnosis 03/16/2021 11:51:00 AM [facility] juanita M79.89 Other specified soft tissue disorders OT HER SPECIFIED SOFT TISSUE DISORDERS Diagnosis 11/23/2020 03:11:00 PM [facility] l T80.69XA Other serum reaction due to other serum, initial encounter OTHER SERUM REACTION DUE TO OTHER SERUM, INITIAL E Diagnosis 11/23/2020 03:11:00 P M [facility] L29.9 Pruritus, unspecified PRURITUS, UNSPECIFIED Diagnosis 11/23/2020 03:11:00 PM [facility] F43.22 Adjustment disorder with anxiety ADJUSTMENT DISO RDER WITH ANXIETY Diagnosis 10/18/2020 02:00:00 PM [facility] F43.23 Adjustment disorder with mixed anxiety a nd depressed mood Adjustment disorder with mixed anxiety and depressed mood Diagnosis 020 07:42:47 AM T [facility] F43.10 Post-traumatic stress disorder, unspecif ied Post-traumatic stress disorder, unspecified Diagnosis 06/01/2020 07:42:47 AM EDT [facility] S06.0X1A Concussion with loss of cons ciousness of 30 minutes or less, initial encounter Concussion with loss of consciousness of 30 minutes or less, initial encounter Diagnosis 06/01/2020 07:42:[address] [facility] G89.29 [id number] Other chronic pain Problem 04/18/2021 12:00: 00 AM EDT W1 ([facility]) G89.29 Chronic pain Other chronic pain Problem 07/10/2020 12:0 0:00 AM EST W1 ([facility]) Surgeries/Procedures Procedure Description Date Indications Data Source(s) Unclassified drugs 09/04/2020 12:00:00 AM EST eCW1 ([facility]) Completion of procedural visit when meets criteria 09/04/2020 12:00:00 AM EST eCW1 ([facility]) Pain Procedure Log 07/10/2020 12:00:00 AM EST eCW1 ([facility]) Results ID Date Data Source [id number] 06/11/2021 11:10:00 AM EDT [facility] Name Value Range Interpretation Code Description Data Linda rce(s) Supporting Document(s) SARS-CoV-2 (COVID-19) RNA [Presence] in Respiratory specimen by CHRISTINA with probe detection Not Detected [facility] This lab was ordered by [facility] and reported by [employer] ID Date Data Source [id number] 05/13/2021 03:45:00 PM EDT [facility] Name Value Range Interpretation Code Description Data Linda rce(s) Supporting Document(s) SARS-CoV-2 RNA Resp Ql CHRISTINA+probe NOT DETECTED [facility] This lab was ordered by [facility] and reported by [facility]. ID Date Data Source [id number] 03/22/2021 03:38:[address] [facility] l Patient: BETTINA ZAPATA n Report - [facility]VisitID: [id number] [place] [address] [phone], FRegistration Date/Time: 03/22/2021 12:48 Weight:79.3 kg (S). Height/Length:66 inches (S). 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 Medications:None. Allergies:No Known Drug Allergy. FAMILY HISTORYNegative. No significant family medical history. (Electronically signed by Marion Silva 03/22/2021 15:32) Name Value Range Interpretation Code Description Data Linda rce(s) Supporting Document(s) ID Date Data Source [id number] 03/22/2021 03:35:00 PM EDT [facility] Patient: BETTINA ZAPATA n [facility]VisitID: [id number] [place] [address] [phone], FRegistration Date/Time: 03/22/2021 12:48 Weight:79.3 kg (S). Height/Length:66 inches (S). 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 Medications:None. Allergies:No Known Drug Allergy. FAMILY HISTORYNegative. No significant family medical history. (Electronically signed by Marion Silva 03/22/2021 15:24) Name Value Range Interpretation Code Description Data Linda rce(s) Supporting Document(s) ID Date Data Source [id number] 03/22/2021 02:29:00 PM EDT [facility] [...] rce(s) Supporting Document(s) ID Date Data Source [id number] 03/22/2021 01:36:00 PM EDT [facility] TSYSORDER [id number] Name Value Range Interpretation Code Description Data Linda rce(s) Supporting Document(s) HCG URINE NEGATIVE NEGATIVE [facility] ID Date Data Source [id number] 03/22/2021 02:10:00 PM EDT [facility] TSYSORDER [id number] Name Value Range Interpretation Code Description Data Linda rce(s) Supporting Document(s) FREE T4 1.1 ng/dL 0.76-1.46 [facility] ID Date Data Source [id number] 03/22/2021 02:10:00 PM EDT [facility] TSYSORDER [id number] Name Value Range Interpretation Code Description Data Linda rce(s) Supporting Document(s) TSH 1.510 uIU/mL 0.360-3.740 [facility] ID Date Data Source [id number] 03/22/2021 01:54:00 PM EDT [facility] TSYSORDER [id number] Name Value Range Interpretation Code Description Data Linda rce(s) Supporting Document(s) MAGNESIUM 2.0 mg/dL 1.8-2.4 [facility] ID Date Data Source [id number] 03/22/2021 01:54:00 PM EDT [facility] TSYSORDER [id number] R [id number] Name Value Range Interpretation Code Description Data Linda rce(s) Supporting Document(s) TROPONIN-HIGH SENSITIVITY 4.6 ng/L 0-60.4 [facility] ID Date Data Source [id number] 03/22/2021 01:54:00 PM EDT [facility] TSYSORDER [id number] Name Value Range Interpretation Code Description Data Linda rce(s) Supporting Document(s) LIPASE 153 U/L 73-393 [facility] ID Date Data Source [id number] 03/22/2021 01:54:00 PM EDT [facility] TSYSORDER [id number] Name Value Range Interpretation Code Description Data Linda rce(s) Supporting Document(s) GLUCOSE 84 mg/dL 74-106 [facility] BLOOD UREA NITROGEN 7 mg/dL 7-18 [facility] ital CREATININE 0.71 mg/dL 0.6-1.0 [facility] SODIUM 140 mmol/L 136-145 [facility] POTASSIUM 3.8 mmol/L 3.5-5.1 [facility] CHLORIDE 105 mmol/L 98-107 [facility] CO2 23 mmol/L 21-32 [facility] CALCIUM 8.5 mg/dL 8.5-10.1 [facility] ANION GAP 12.0 mmol/L 5-12 [facility] GLOMERULAR FILTRATION RATE >90 mL/min [facility] GFR IS CALCULATED IN mL/min/1.73m2 PEPITO L FUNCTION: >90MILDLY DECREASED: 60-89MILDY TO MODERATELY DECREASED: 45-59 MODERATELY TO SEVERELY DECREASED: 30-44SEVERELY DECREASED: 15-29RENAL FAILURE: <15 AST 14 U/L 15-37 L [facility] ALT 24 U/L 12-78 [facility] ALKALINE PHOSPHATASE 42 U/L 46-116 L [facility] TOTAL BILIRUBIN 0.5 mg/dL 0.2-1.0 [facility] TOTAL PROTEIN 7.0 g/dl 6.4-8.2 [facility] ALBUMIN 3.4 gm/dL 3.4-5.0 [facility] ID Date Data Source [id number] 03/22/2021 01:32:00 PM EDT [facility] TSYSORDER [id number] Name Value Range Interpretation Code Description Data Linda rce(s) Supporting Document(s) WHITE BLOOD COUNT 7.1 K/mm3 4.0-10.0 [facility] al RED BLOOD COUNT 4.30 M/mm3 4.00-5.50 [facility] HEMOGLOBIN 10.6 gm/dL 12.0-16.0 L [facility] HEMATOCRIT 32.6 % 36.0-48.8 L [facility] MEAN CELL VOLUME 75.8 fl 80-96 L [facility] MEAN CORPUSCULAR HEMOGLOBIN 24.7 pg 27.0-31.0 L [facility] MEAN CORPUSCULAR HGB CONC 32.5 g/dl 32.0-36.0 [facility] RED CELL DISTRIBUTION WIDTH 22.1 % 10.0-14.5 H [facility] PLATELET COUNT 272 K/mm3 172-450 [facility] MEAN PLATELET VOLUME 10.3 fl 9.0-13.0 [facility] pital GRAN % 58.9 % 50-80.0 [facility] IG% 0.0 % 0.0-0.2 [facility] LYMPH % 29.2 % 25.0-50.0 [facility] MONO % 8.5 % 2.0-10.0 [facility] EOS % 3.1 % 0-5.0 [facility] BASO % 0.3 % 0.0-2.0 [facility] GRAN # 4.2 K/mm3 2.0-8.00 [facility] IG# 0.0 K/mm3 0.0-0.2 [facility] LYMPH # 2.1 K/mm3 1.0-5.0 [facility] MONO # 0.6 K/mm3 0.10-1.20 [facility] EOS # 0.2 K/mm3 0.0-0.5 [facility] BASO # 0.0 K/mm3 0.0-0.2 [facility] ID Date Data Source [id number] 01/23/2021 07:28:00 PM EDT [facility] Name Value Range Interpretation Code Description Data Linda rce(s) Supporting Document(s) SARS coronavirus 2 RNA [Presence] in Res piratory specimen by CHRISTINA with probe detection NEGATIVE [facility] This lab was ordered by [facility] a nd reported by [facility]. ID Date Data Source [id number] 08/30/2020 11:05:00 AM EST [facility] Name Value Range Interpretation Code Description Data Linda rce(s) Supporting Document(s) SARS coronavirus [address] [facility] This lab was ordered by [facility] and reported by [facility]. ID Date Data Source [id number] 06/09/2020 04:05:[address] [facility] Name Value Range Interpretation Code Description Data Linda rce(s) Supporting Document(s) Progress Note [facility] VVLLLn6jArNKOqNd83/TBGyvJOIvk1WuVUcjSNi9SQmiVJUyN4JyFDH7vE2cJWE2QCkDRhEhVsDjBLVk lbm [file] ICAgICAgICAgICAgICAgICAgICAgICAgICAgICAgICAgICAgICAgICAgICAgICAgICAgICAgICAgICAg ICAgICAgICAgDQogICAgICAgICAgICAgICAgICAgIC AgICAgICAgICAgICAgICAgICAgICAgICAgICAgICAgICAgICAgICAgICAgICAgICAgICAgICAgICAgIC AgICAgICAgICAgICAgICAgICAgDQogICAgICAgICAgICAgICAgICAgICAgICAgICAgICAgICAgICAgIC AgICAgICAgICAgICAgICAgICAgICAgICAgICAgICAg ICAgICAgICAgICAgICAgICAgICAgICAgICAgICAgDQogICAgICAgICAgICAgICAgICAgICAgICAgICAg ICAgICAgICAgICAgICAgICAgICAgICAgICAgICAgICAgICAgICAgICAgICAgICAgICAgICAgICAgICAg ICAgICAgICAgICAgDQogICAgICAgICAgICAgICAgIC AgICAgICAgICAgICAgICAgICAgICAgICAgICAgICAgICAgICAgICAgICAgICAgICAgICAgICAgICAgIC AgICAgICAgICAgICAgICAgICAgICAgDQogICAgICAgICAgICAgICAgICAgICAgICAgICAgICAgICAgIC AgICAgICAgICAgICAgICAgICAgICAgICAgICAgICAg ICAgICAgICAgICAgICAgICAgICAgICAgICAgICAgICAgDQogICAgICAgICAgICAgICAgICAgICAgICAg ICAgICAgICAgICAgICAgICAgICAgICAgICAgICAgICAgICAgICAgICAgICAgICAgICAgICAgICAgICAg ICAgICAgICAgICAgICAgDQogICAgICAgICAgICAgIC AgICAgICAgICAgICAgICAgICAgICAgICAgICAgICAgICAgICAgICAgICAgICAgICAgICAgICAgICAgIC AgICAgICAgICAgICAgICAgICAgICAgICAgDQogICAgICAgICAgICAgICAgICAgICAgICAgICAgICAgIC AgICAgICAgICAgICAgICAgICAgICAgICAgICAgICAg ICAgICAgICAgICAgICAgICAgICAgICAgICAgICAgICAgICAgDQogICAgICAgICAgICAgICAgICAgICAg ICAgICAgICAgICAgICAgICAgICAgICAgICAgICAgICAgICAgICAgICAgICAgICAgICAgICAgICAgICAg BOOwHKJzHUNgIVKgBXQyGMTcPIi5N4oeEKGpSQAeNJ 2tSSz1Ky4+XMkQAqBtBYX4vgIotX2XTM7hs5OeREjrPWCsi2NgKKc9EH9UMCFfXBdvWS5ZMAcdna5WAJ EeECNtiIPRa0wbJjJsOSJ4FTGoTnmiLA1XCHWhL7jeefWrRJAiBKSSHZeaWISVUXwvKAWCSD9RHhVuW9 BgjD47UPPKBx9+ZIryefZbNrdVBqAuCTMgs2QkATu5 WA5QYMTrGdxxp9PnIxFdNEOWPCulOE3NIMF4GFF7VNGyIx1OGTJdP072tsHyCQ4AHs0OGbBeAS5sea9W TiDxAFSbPenAEsp5RJcgSN7TdUQjMFeFzz1ajbYcahVXa1FtnhAitOQDYG0cqKUIVIJdytXio6frriwj KGC5RPBzxLHfCA2hQp0cCBOkSVNoQrMmKJCRQK1DNM DeAZSsuMWvKISgKMWGKO0VHGwiDXX1IPRdgaEwuCQbPGxdUE4DAFAlxmYvQpWiTXNABCi+Wq9XGR1gk1 ZdETzqNMPeXM9pfc3HAApCJeFjN2S1hVSoY8T9EJrxVq5TSOVtJGJgMiCmYCORUUveWH8LBM9brcK2HN 9CxUWwNMWzELXibHSlMEm2X11ttKGmNVltTZ4CGML+ Wilber+Ys1ZCYVkDFSfDJDaYoVgRARKBzSvL4ZnJ6RDy1IoU8PdEH80rCtwowVzKTjkMM3XOJ7dSZXbPONC WY9WqOSyhI5jatBpYaAnGTMCKyAzM81aqEEcZJCiRNClIXYjSs6KSSQnS9NrztWavDjzsaRzSERgUDRV TU1ESTbethEykVGcdIjdOM66iQrfDR1YVt7TGqHhQP 4huj6YzDJmZd1ARGYhDa7THPJoMXIyUXNyJBZ4USUuUwGwSYtpILCtABYvYBV8ZWFjNALtRE3FBmVtWA YkNwm5RhZeAGOvOPVovu2OWKUhEORpJEK5ZBHuNOMbFDZuIYqfCMEuDRMaFFO6GNXuRLIlIY0MQfXgYD ClIBI2JXSoETYaNKNlib9QRSIpKPDjGCb6APZaPBLy PIFvBCppCFCxJAX8Lma3UDXzMEYiMJ2DJgZtDWEuGUv2UFVbTGCuEBIwop4JZVQiQXTvFlB6TKOaMGIn PEIrBFhwGVObVENaZMxfLQQmZCGhQN2JIkYmHBMnMMN1XSLtESChWVJfmy5VTQMqCSYrROE7BJHiGCFb IOSyNVpcGCBmYKK1RLSmASPjBNLuIL1YZwSyGGApPF G0ZLSdEXFmHCOwaa0TDGAoEKGiBEb7GEPgAOXdWGEnNQtdRUPtEZS3KSpoOYCjOGHuLL8AEsXmVFLbTu x3ZaxvFEYtWEAfsy7IVOJcWGBaVby5XvLiRVOmYUQtLJduSMAfVTT6APKjHNLiPHBxDG3NPvCsTFKiSr tfBRZdORWrLJTwnv3YZMDcLJBwDOOkDPNuXEDbXFWr SNmkMMTfHWF2KLE7RKVpUXUgDO0TBwBiNZFuKwWfXGqoEGDbKUGzsu7EQNArAVKvLUR3KFOiDGNbVNCr VZrvCDBaWIHdKGE0RNJkPWZgKH7HDsFtHDnjFKVGUyx4HAsbS2i1PTQfKj8OE7Oyi8HrSqMzFKTFJCdw EG0bepNcNEGvDj9TO2eMHln3PAO1B0FnJqw2C7S4Ty Y6SOgiYoBoPBeyGPiaNNI4WE0rSEncGPP8PCE1BkiqJSO7PLYcVYHmGWX7NnNsWYS9DJmfDlXzML1FVm 5CInW0TXT7gPCmQo8OAvG6SBzZNwBbWE4HMNz= Procedure Social History Code Duration Value Status Description Data Source(s ) Smoking 06/08/2021 12:00:00 AM EDT Current Smoker completed Curre nt Smoker eCW1 ([facility]) Smoking 03/16/2021 12:00:00 AM EDT Former Smoker completed Former Smoker eCW1 ([facility]) Smoking 03/16/2021 12:00:00 AM EDT Former Smoker completed Former Smoker eCW1 ([facility]) Smoking 03/16/2021 12:00:00 AM EDT Former Smoker completed Former Smoker eCW1 ([facility]) Smoking 03/16/2021 12:00:00 AM EDT Former Smoker completed Former Smoker eCW1 ([facility]) Smoking 03/16/2021 12:00:00 AM EDT Former Smoker completed Former Smoker eCW1 ([facility]) Smoking 03/16/2021 12:00:00 AM EDT Former Smoker completed Former Smoker eCW1 ([facility]) Smoking 03/16/2021 12:00:00 AM EDT Former Smoker completed Former Smoker eCW1 ([facility]) Smoking 03/16/2021 12:00:00 AM EDT Former Smoker completed Former Smoker eCW1 ([facility]) Smoking 03/16/2021 12:00:00 AM EDT Former Smoker completed Former Smoker eCW1 ([facility]) Smoking 11/23/2020 12:00:00 AM EDT Former Smoker completed Former Smoker eCW1 ([facility]) Smoking 09/01/2020 12:00:00 AM EST Current Smoker completed Curre nt Smoker eCW1 ([facility]) Smoking 09/01/2020 12:00:00 AM EST Current Smoker completed Curre nt Smoker eCW1 ([facility]) Smoking 09/01/2020 12:00:00 AM EST Current Smoker completed Curre nt Smoker eCW1 ([facility]) Smoking 08/09/2020 12:00:00 AM EST Current Smoker completed Curre nt Smoker eCW1 ([facility]) Smoking 07/10/2020 12:00:00 AM EST Current Smoker completed Curre nt Smoker eCW1 ([facility]) Smoking 05/05/2020 12:00:00 AM EDT Current Smoker completed Curre nt Smoker eCW1 ([facility]) Smoking 05/05/2020 12:00:00 AM EDT Current Smoker completed Curre nt Smoker eCW1 ([facility]) Smoking 05/05/2020 12:00:00 AM EDT Current Smoker completed Curre nt Smoker eCW1 ([facility]) Vital Signs ID Date Data Source UNK Name Value Range Interpretation Code Description Data Source(s) Body weight 175.6 [lb_av] 175.6 [lb_av] eCW1 ([facility]) Respiratory rate 18 /min 18 /min eCW1 ([facility]) Body weight 79.65 kg 79.65 kg eCW1 ([facility]) Body temperature 97.9 [degF] 97.9 [degF] eCW1 ( [facility]) Body height 65 [in_i] 65 [in_i] eCW1 ([facility]) Systolic blood pressure 111 mm[Hg] 111 mm[Hg] e CW1 ([facility]) Body mass index (BMI) [Ratio] 29.22 kg/m2 29.22 kg/m2 eCW1 ([facility]) Heart rate 94 /min 94 /min eCW1 ([facility]) Diastolic blood pressure 52 mm[Hg] 52 mm[Hg] eCW1 ([facility]) Diastolic blood pressure 73 mm[Hg] 73 mm[Hg] KENYA ([facility]) Body weight 176.8 [lb_av] 176.8 [lb_av] KENYA ([facility]) Body mass index (BMI) [Ratio] 28.5 kg/m2 28.5 k g/m2 KENYA ([facility]) Body height 66 [in_i] 66 [in_i] KENYA ([facility]) Systolic blood pressure 119 mm[Hg] 119 mm[Hg] A THENA ([facility]) Body height 65 [in_i] 65 [in_i] eCW1 ([facility]) Oxygen saturation in Arterial blood by Pulse oximetry 99 % 99 % eCW1 ([facility]) Body temperature 98.0 [degF] 98.0 [degF] eCW1 ( [facility]) Heart rate 73 /min 73 /min eCW1 ([facility]) Respiratory rate 18 /min 18 /min eCW1 ([facility]) Body height 65 [in_i] 65 [in_i] eCW1 ([facility]) Body weight 180 [lb_av] 180 [lb_av] eCW1 ([facility]) Body mass index (BMI) [Ratio] 29.95 kg/m2 29.95 kg/m2 eCW1 ([facility]) Body temperature 97.5 [degF] 97.5 [degF] eCW1 ( [facility]) Heart rate 59 /min 59 /min eCW1 ([facility]) Respiratory rate 16 /min 16 /min eCW1 ([facility]) Oxygen saturation in Arterial blood by Pulse oximetry 99 % 99 % eCW1 ([facility]) Body weight 187.6 [lb_av] 187.6 [lb_av] eCW1 ([facility]) Body height 65 [in_i] 65 [in_i] eCW1 ([facility]) Body mass index (BMI) [Ratio] 31.21 kg/m2 31.21 kg/m2 eCW1 ([facility]) Heart rate 75 /min 75 /min eCW1 ([facility]) Respiratory rate 18 /min 18 /min eCW1 ([facility]) Body temperature 97.5 [degF] 97.5 [degF] eCW1 ( [facility]) Systolic blood pressure 116 mm[Hg] 116 mm[Hg] e CW1 ([facility]) Diastolic blood pressure 57 mm[Hg] 57 mm[Hg] eCW1 ([facility]) Body weight 185.2 [lb_av] 185.2 [lb_av] eCW1 ([facility]) Body height 65 [in_i] 65 [in_i] eCW1 ([facility]) Body mass index (BMI) [Ratio] 30.82 kg/m2 30.82 kg/m2 eCW1 ([facility]) Heart rate 77 /min 77 /min eCW1 ([facility]) Respiratory rate 18 /min 18 /min eCW1 ([facility]) Body temperature 98.1 [degF] 98.1 [degF] eCW1 ( [facility]) Systolic blood pressure 112 mm[Hg] 112 mm[Hg] e CW1 ([facility]) Diastolic blood pressure 56 mm[Hg] 56 mm[Hg] eCW1 ([facility]) Diastolic blood pressure 54 mm[Hg] 54 mm[Hg] eCW1 ([facility]) Body weight 182.2 [lb_av] 182.2 [lb_av] eCW1 ([facility]) Body height 65 [in_i] 65 [in_i] eCW1 ([facility]) Body mass index (BMI) [Ratio] 30.32 kg/m2 30.32 kg/m2 eCW1 ([facility]) Heart rate 87 /min 87 /min eCW1 ([facility]) Respiratory rate 18 /min 18 /min eCW1 ([facility]) Body temperature 98.2 [degF] 98.2 [degF] eCW1 ( [facility]) Systolic blood pressure 115 mm[Hg] 115 mm[Hg] e CW1 ([facility]) Body height 65 [in_i] 65 [in_i] eCW1 ([facility]) Respiratory rate 18 /min 18 /min eCW1 ([facility]) Body weight 181.0 [lb_av] 181.0 [lb_av] eCW1 ([facility]) Oxygen saturation in Arterial blood by Pulse oximetry 99 % 99 % eCW1 ([facility]) Body mass index (BMI) [Ratio] 30.12 kg/m2 30.12 kg/m2 eCW1 ([facility]) Body temperature 98.6 [degF] 98.6 [degF] eCW1 ( [facility]) Heart rate 86 /min 86 /min eCW1 ([facility]) Patient Treatment Plan of Care Planned Activity Planned Date Details Description Data Source (s) Flonase Allergy Relief 50 MCG/ACT 03/16/2021 12:00:00 AM EDT eCW1 ([facility]) cetirizine hydrochloride 10 MG Oral Tablet 03/16/2021 12:00:00 AM E DT eCW1 ([facility]) Flonase Allergy Relief 50 MCG/ACT 03/16/2021 12:00:00 AM EDT eCW1 ([facility]) cetirizine hydrochloride 10 MG Oral Tablet 03/16/2021 12:00:00 AM E DT eCW1 ([facility]) Flonase Allergy Relief 50 MCG/ACT 03/16/2021 12:00:00 AM EDT eCW1 ([facility]) cetirizine hydrochloride 10 MG Oral Tablet 03/16/2021 12:00:00 AM E DT eCW1 ([facility]) Flonase Allergy Relief 50 MCG/ACT 03/16/2021 12:00:00 AM EDT eCW1 ([facility]) cetirizine hydrochloride 10 MG Oral Tablet 03/16/2021 12:00:00 AM E DT eCW1 ([facility]) Prednisone 20 MG Oral Tablet KENYA ([facility]) fluticasone propionate 50 mcg/actuation nasal spray,suspension SPRAY ONE SPRAY IN ONE NOSTRIL EVERY DAY KENYA ([facility]) Escitalopram 20 MG Oral Tablet KENYA ([facility]) Escitalopram 10 MG Oral Tablet KENYA ([facility]) Clonidine Hydrochloride 0.2 MG Oral Tablet KENYA ([facility]) cetirizine hydrochloride 10 MG Oral Tablet KENYA ([facility])
== END 2021-07-02 02:11 | disposition left against medical advice (07) ==
LOC: M ED 21:58
DX: Z53.29 Procedure and treatment not carried out because of patient's decision for other reasons (principal)

== ENCOUNTER → 2021-07-13 | Outpatient (CLI) | payer OTHER | LOC: M PAIN 14:45 | PROVIDERS: ATTEND Anesthesiology | DX: G89.29 Other chronic pain (principal); M51.16 Intervertebral disc disorders with radiculopathy, lumbar region; D64.9 Anemia, unspecified; F43.10 Post-traumatic stress disorder, unspecified; Z79.899 Other long term (current) drug therapy; F17.210 Nicotine dependence, cigarettes, uncomplicated ==

== ENCOUNTER → 2021-09-10 | Outpatient (CLI) | payer OTHER | LOC: M LABSMTC 09:13 | PROVIDERS: ATTEND Anesthesiology | DX: Z01.818 Encounter for other preprocedural examination (principal); Z11.52 Encounter for screening for COVID-19 ==

== ENCOUNTER → 2021-09-14 | Outpatient (CLI) | payer OTHER ==
[~2021-09-14] MED LIST changes: +ISOVUE-M 300 61% 15ML VIAL As Ordered ONE; +LIDOCAINE 1% SDV 30ML VIAL As Ordered ONE; +ONDANSETRON 4 MG ORAL DISINTEGRATING TAB As Ordered ONE; +diazePAM 5MG TABLET As Ordered ONE; +diphenhydrAMINE 25MG CAP As Ordered ONE; +methylPREDNISolone SUSP 40MG/ML 1ML VIAL (DEPO MEDROL) As Ordered ONE; +oxyCODONE 5MG TAB As Ordered ONE
== END ==
LOC: M PAIN 14:45
PROVIDERS: ATTEND Anesthesiology
DX: M51.16 Intervertebral disc disorders with radiculopathy, lumbar region (principal); Z86.59 Personal history of other mental and behavioral disorders; Z87.891 Personal history of nicotine dependence; Z79.899 Other long term (current) drug therapy
CPT/HCPCS: 62323; J1030; Q0162; Q9967

== ENCOUNTER → 2021-10-12 | Outpatient (CLI) | payer OTHER ==
[~2021-10-12] MED LIST changes: -ISOVUE-M 300 61% 15ML VIAL As Ordered ONE; -LIDOCAINE 1% SDV 30ML VIAL As Ordered ONE; -ONDANSETRON 4 MG ORAL DISINTEGRATING TAB As Ordered ONE; -diazePAM 5MG TABLET As Ordered ONE; -diphenhydrAMINE 25MG CAP As Ordered ONE; -methylPREDNISolone SUSP 40MG/ML 1ML VIAL (DEPO MEDROL) As Ordered ONE; -oxyCODONE 5MG TAB As Ordered ONE
== END ==
LOC: M PAIN 14:45
PROVIDERS: ATTEND Nurse Practitioner Family
DX: G89.29 Other chronic pain (principal); M51.16 Intervertebral disc disorders with radiculopathy, lumbar region; D64.9 Anemia, unspecified; F43.10 Post-traumatic stress disorder, unspecified; F07.81 Postconcussional syndrome; Z87.891 Personal history of nicotine dependence; Z79.899 Other long term (current) drug therapy

== ENCOUNTER → 2022-01-18 | Outpatient (CLI) | payer OTHER | LOC: M WHC 14:11 | PROVIDERS: ATTEND Nurse Practitioner Family | DX: R79.89 Other specified abnormal findings of blood chemistry (principal) ==

== ENCOUNTER → 2022-01-21 | Outpatient (CLI) | payer OTHER | LOC: M EKG 16:27 | PROVIDERS: ATTEND Physician Assistant Medical | DX: R00.2 Palpitations (principal) ==

== ENCOUNTER → 2022-06-02 | Outpatient (CLI) | payer OTHER | LOC: M LABSMTC 09:30 | PROVIDERS: ATTEND Anesthesiology | DX: Z01.818 Encounter for other preprocedural examination (principal); Z11.52 Encounter for screening for COVID-19 ==

== ENCOUNTER → 2022-06-06 | Outpatient (CLI) | payer OTHER ==
[~2022-06-06] MED LIST changes: +ISOVUE-M 300 61% 15ML VIAL As Ordered ONE; +LIDOCAINE 1% SDV 30ML VIAL As Ordered ONE; +ONDANSETRON 4MG ORAL DISINTEGRATING TAB As Ordered ONE; +diazePAM 5MG TABLET As Ordered ONE; +diphenhydrAMINE 25MG CAP As Ordered ONE; +methylPREDNISolone SUSP 40MG/ML 1ML VIAL (DEPO MEDROL) As Ordered ONE; +oxyCODONE 5MG TAB As Ordered ONE
== END ==
LOC: M PAIN 14:30
PROVIDERS: ATTEND Anesthesiology
DX: M51.16 Intervertebral disc disorders with radiculopathy, lumbar region (principal); L65.9 Nonscarring hair loss, unspecified; Z87.820 Personal history of traumatic brain injury; D50.9 Iron deficiency anemia, unspecified; E06.3 Autoimmune thyroiditis; Z87.891 Personal history of nicotine dependence
CPT/HCPCS: 62323; J1030; Q9967

== ENCOUNTER → 2022-06-07 | Outpatient (REF) | payer OTHER ==
[~2022-06-07] MED LIST changes: -ISOVUE-M 300 61% 15ML VIAL As Ordered ONE; -LIDOCAINE 1% SDV 30ML VIAL As Ordered ONE; -ONDANSETRON 4MG ORAL DISINTEGRATING TAB As Ordered ONE; -diazePAM 5MG TABLET As Ordered ONE; -diphenhydrAMINE 25MG CAP As Ordered ONE; -methylPREDNISolone SUSP 40MG/ML 1ML VIAL (DEPO MEDROL) As Ordered ONE; -oxyCODONE 5MG TAB As Ordered ONE
[2022-06-07 17:08] LABS: APPEARANCE, URINE MANUAL CLEAR (CLEAR); BILIRUBIN, URINE MANUAL NEGATIVE (NEGATIVE); BLOOD URINE MANUAL NEGATIVE (NEGATIVE); COLOR, URINE MANUAL LT YELLOW (YELLOW); GLUCOSE, URINE (UA) MANUAL NEGATIVE (NEGATIVE); KETONE, URINE MANUAL NEGATIVE (NEGATIVE); LEUKOCYTE ESTERASE, URINE MAN NEGATIVE (NEGATIVE); NITRITE, URINE MANUAL NEGATIVE (NEGATIVE); PROTEIN, URINE MANUAL NEGATIVE (NEGATIVE); UROBILINOGEN, URINE MANUAL NORMAL (NORMAL)
[2022-06-07 17:20] LABS: BASO % 0.5 % (0.0-1.0); EOS # 0.2 10^3/uL (0.0-0.5); HEMATOCRIT 33.6 % (36.0-47.0); HEMOGLOBIN 9.6 g/dl (12.0-15.5); LYMPH # 2.2 10^3/uL (1.5-5.0); MEAN CORPUSCULAR HEMOGLOBIN 22.4 pg (27.0-33.0); MEAN CORPUSCULAR HGB CONC 28.6 g/dl (32.0-36.5); MEAN CORPUSCULAR VOLUME 78.3 fl (80.0-96.0); MONO # 0.5 10^3/uL (0.0-0.8); MONO % 6.9 % (2.0-8.0); NEUTROPHILS # 4.5 10^3/uL (1.5-8.5); NEUTROPHILS % 61.3 % (36.0-66.0); PLATELET COUNT, AUTOMATED 293 10^3/uL (150-450); RED BLOOD COUNT 4.29 10^6/uL (4.00-5.40); WHITE BLOOD COUNT 7.4 10^3/uL (4.0-10.0)
[2022-06-07 17:59] LABS: CREATININE,RANDOM URINE 88.3 MG/DL; TOTAL PROTEIN,RANDOM URINE < 5.0 MG/DL (0.0-12.0)
[2022-06-07 18:04] LABS: TOTAL 25(OH) VITAMIN D 29.4 NG/ML (30.0-100.0)
[2022-06-11 09:56] LABS: PTT LUPUS TYPE ANTICOAG SCREEN 1.1 (0-1.2)
== END ==
LOC: M SFHCRHEU 10:25
PROVIDERS: ATTEND Internal Medicine
DX: R76.8 Other specified abnormal immunological findings in serum (principal); E55.9 Vitamin D deficiency, unspecified

== ENCOUNTER → 2022-06-14 | Outpatient (CLI) | payer OTHER | LOC: M PLAIMG 08:47 | PROVIDERS: ATTEND Internal Medicine | DX: M25.50 Pain in unspecified joint (principal) ==

== ENCOUNTER → 2022-07-16 | Outpatient (CLI) | payer OTHER | LOC: M PAIN 15:30 | PROVIDERS: ATTEND Anesthesiology | DX: G89.29 Other chronic pain (principal); M51.16 Intervertebral disc disorders with radiculopathy, lumbar region; L65.9 Nonscarring hair loss, unspecified; Z87.820 Personal history of traumatic brain injury; F43.10 Post-traumatic stress disorder, unspecified; D50.9 Iron deficiency anemia, unspecified; E06.3 Autoimmune thyroiditis; Z87.891 Personal history of nicotine dependence ==

== ENCOUNTER → 2022-07-23 | Outpatient (CLI) | payer OTHER | LOC: M PLAIMG 15:51 | PROVIDERS: ATTEND Anesthesiology | DX: M51.16 Intervertebral disc disorders with radiculopathy, lumbar region (principal) ==

== ENCOUNTER → 2022-07-25 | Outpatient (CLI) | payer OTHER | LOC: M PAIN 16:00 → M TMPAIN 16:00 | PROVIDERS: ATTEND Anesthesiology | DX: M51.16 Intervertebral disc disorders with radiculopathy, lumbar region (principal); G89.29 Other chronic pain; Z87.820 Personal history of traumatic brain injury; Z79.899 Other long term (current) drug therapy ==